=== PATIENT | female | born 1980 | race Caucasian/White ===

== ENCOUNTER 2022-03-18 15:55 | Emergency (ER) | payer MEDICAID, OTHER ==
[~2022-03-18] VITALS: Ht 165.1 cm; Wt 64.6 kg
[2022-03-18] MEDS ORDERED: NS IV 1000 ML 1,000 ML IV STA ×2 (16:41→18:44)
[2022-03-18] MEDS ORDERED: diphenhydrAMINE 50 MG/ML INJ (BENADRYL) IVP STA (16:41)
[2022-03-18] MEDS ORDERED: ONDANSETRON 4 MG/2 ML (SDV) Z0FRAN IVP STA ×2 (16:41→18:44)
--- NOTE | 2022-03-18 16:50 | Diagnostic Imaging Report ---
PROCEDURE: CT abdomen and pelvis without contrast. TECHNIQUE: Multiple contiguous axial images were obtained through the abdomen and pelvis without the use of intravenous contrast. Auto Exposure Controls were utilized during the CT exam to meet ALARA standards for radiation dose reduction. INDICATION: Left lower quadrant abdominal pain and left flank pain. COMPARISON: None. FINDINGS: Unenhanced images of liver and spleen reveal no focal abnormality. Surgical clips are seen in the gallbladder fossa. There is no evidence of biliary ductal dilatation. Internal biliary stent is in place. There is no evidence of pancreatic or adrenal gland abnormality identified. There is no evidence of renal calculus or hydronephrosis. No free fluid is seen within the abdomen or pelvis. There is mild aortoiliac atherosclerotic calcification. Unenhanced urinary bladder is unremarkable in appearance. IMPRESSION: No acute abnormality is identified. Internal biliary stent is in place without significant ductal dilatation. Dictated by: Dictated on workstation # [id number]
[2022-03-18] MEDS ORDERED: PROMETHAZINE INJ 25 MG/ML (PHENERGAN) AMP IVP STA (16:57)
[2022-03-18] MEDS ORDERED: fentaNYL INJ 100 MCG/2 ML AMP IM STA (16:57)
[2022-03-18] MEDS ORDERED: KETOROLAC 30 MG/ML VIAL IM STA (16:57)
[2022-03-18 17:31] LABS: BASOPHILS # (AUTO) 0.1 10^3/uL (0.0-0.1); BASOPHILS % (AUTO) 1 % (0-10); EOSINOPHILS # (AUTO) 0.1 10^3/uL (0.0-0.3); EOSINOPHILS % (AUTO) 1 % (0-10); HEMATOCRIT 35 % (35-52); HEMOGLOBIN 11.4 g/dL (11.5-16.0); LYMPHOCYTES # (AUTO) 1.4 10^3/uL (1.0-4.0); LYMPHOCYTES % (AUTO) 17 % (12-44); MEAN CORPUSCULAR HEMOGLOBIN 26 pg (25-34); MEAN CORPUSCULAR HGB CONC 33 g/dL (32-36); MEAN CORPUSCULAR VOLUME 79 fL (80-99); MEAN PLATELET VOLUME 11.2 fL (9.0-12.2); MONOCYTES # (AUTO) 0.5 10^3/uL (0.0-1.0); MONOCYTES % (AUTO) 7 % (0-12); NEUTROPHILS # (AUTO) 5.9 10^3/uL (1.8-7.8); NEUTROPHILS % (AUTO) 74 % (42-75); PLATELET COUNT 202 10^3/uL (130-400)
[2022-03-18 17:51] LABS: ALBUMIN 4.3 GM/DL (3.2-4.5); BILIRUBIN,TOTAL 0.4 MG/DL (0.1-1.0); CALCIUM 9.3 MG/DL (8.5-10.1); CREATININE SERUM 0.66 MG/DL (0.60-1.30); POTASSIUM 4.2 MMOL/L (3.6-5.0); TOTAL PROTEIN 6.9 GM/DL (6.4-8.2)
--- NOTE | 2022-03-18 18:35 | ED GI ---
General Chief Complaint: Abdominal/GI Problems Stated Complaint: VOMITTING,ABD AND BACK PAIN Nursing Triage Note: Patient presents to the ED from her PCPs office with c/o nausea, vomiting, and left lower back/abdominal pain. Patient reports that she just finished a course of antibiotics for a UTI. States her nausea, vomiting, and abdominal pain have been ongoing x 1 week with symptoms worsening today. Source of Information: Patient History of Present Illness Date Seen by Provider: March 18, 2022 Time Seen by Provider: 15:56 Initial Comments 41-year-old female presenting with complaints of being sick for over a week. She reports having left back and abdominal pain. She feels like this was worse today and she has had nausea, vomiting and increased pain. She just finished a course of Macrobid for a UTI. According to the doctor from the clinic, Dr. Danial BAH, her urine culture had shown her most recent UTI was sensitive to Macrobid. Patient is concerned that she still has a UTI and that it is in her kidney causing her to have symptoms. She does have a history of gastroparesis and severe diabetes issues. She has an insulin pump. She states she has had nausea and vomiting and not been able to keep anything down today. She had tried using Zofran ODT at home without success. She had gone to the clinic and they had performed a urinalysis which had reportedly not shown any leukocyte esterase or signs of infection on the dip but did have some ketones. There was no glucose. Timing/Duration: 1 Week Severity/Quality: Severe, Sharp Location: Flank (Left side into the left lower quadrant) Radiation: LLQ (Left flank into the left lower quadrant) Activities at Onset: None Modifying Factors: Worsens With Movement, Worsens With Palpation Associated Symptoms: Back Pain; No Chest Pain, No Diaphoresis, No Fever/Chills; Fatigue; No Heartburn; Nausea/Vomiting; No Rash, No Shortness of Air, No Swelling/Mass in Abdomen, No Syncope; Weakness Allergies and Home Medications Allergies Coded Allergies: Penicillins (Verified Allergy, Unknown, 03/18/22) azithromycin (Verified Allergy, Unknown, 03/18/22) cephalexin (Verified Allergy, Unknown, 03/18/22) meperidine (Verified Allergy, Unknown, 03/18/22) metoclopramide (Verified Allergy, Unknown, 03/18/22) Patient Home Medication List Home Medication List Reviewed: Yes Promethazine HCl (Promethazine Tablet) 25 Mg Tablet, 25 MG PO Q8H PRN for NAUSEA/VOMITING Prescribed by: JANEY SALAS on 03/18/222049 Review of Systems Review of Systems Constitutional: see HPI EENTM: No Symptoms Reported Respiratory: No Symptoms Reported Cardiovascular: No Symptoms Reported Gastrointestinal: See HPI Genitourinary: See HPI, Flank Pain Musculoskeletal: see HPI, back pain Skin: No rash Psychiatric/Neurological: Anxiety Endocrine: No Symptoms Reported Hematologic/Lymphatic: Denies Blood Clots, Denies Easy Bleeding, Denies Easy Bruising Past Cqonekm-Nbvhpt-Jimhsy Hx Patient Social History Tobacco Use?: Yes Tobacco type used: Cigarettes Smoking Status: Current Everyday Smoker Substance use?: Yes Substance type: Marijuana Alcohol Use?: No Pt feels they are or have been: No Immunizations Up To Date First/Initial COVID19 Vaccinat: Not currently vaccinated Past Medical History Surgery/Hospitalization HX: Hysterectomy; DM; Nerver repair left arm; Gastric stimulator; feeding tubes Physical Exam Vital Signs Vital Signs - First Documented 03/18/22 16:05 Temp 36.5 Pulse 89 Resp 20 B/P (MAP) 167/76 (106) Pulse Ox 98 O2 Delivery Room Air Capillary Refill : Less Than 3 Seconds Height/Weight/BMI Height: '" Weight: lbs. oz. kg; 23.00 BMI Method: General Appearance: severe distress (Patient is crying and tearful at times. Chronically ill-appearing) HEENT: PERRL/EOMI; No pharynx normal (Slightly dry mucous membranes) Neck: non-tender, full range of motion, supple, normal inspection Respiratory: chest non-tender, lungs clear, normal breath sounds, no respiratory distress, no accessory muscle use Cardiovascular: normal peripheral pulses, regular rate, rhythm Gastrointestinal: soft, no pulsatile mass, abnormal bowel sounds (Hypoactive); No distended; guarding; No rebound; tenderness (Diffuse tenderness to even mild palpation of her abdomen but worse in the left flank and left lower quadrant) Rectal: deferred Extremities: normal range of motion, normal capillary refill Back: CVA tenderness (L) Neurologic/Psychiatric: alert, oriented x 3 Skin: warm/dry Progress/Results/Core Measures Results/Orders Lab Results Laboratory Tests Test 03/18/22 17:06 03/18/22 18:39 03/18/22 19:50 Range/Units White Blood Count 8.0 4.3-11.0 10^3/uL Red Blood Count 4.43 3.80-5.11 10^6/uL Hemoglobin 11.4 L 11.5-16.0 g/dL Hematocrit 35 35-52 % Mean Corpuscular Volume 79 L 80-99 fL Mean Corpuscular Hemoglobin 26 25-34 pg Mean Corpuscular Hemoglobin Concent 33 32-36 g/dL Red Cell Distribution Width 17.2 H 10.0-14.5 % Platelet Count 202 130-400 10^3/uL Mean Platelet Volume 11.2 9.0-12.2 fL Immature Granulocyte % (Auto) 0 % Neutrophils (%) (Auto) 74 42-75 % Lymphocytes (%) (Auto) 17 12-44 % Monocytes (%) (Auto) 7 0-12 % Eosinophils (%) (Auto) 1 0-10 % Basophils (%) (Auto) 1 0-10 % Neutrophils # (Auto) 5.9 1.8-7.8 10^3/uL Lymphocytes # (Auto) 1.4 1.0-4.0 10^3/uL Monocytes # (Auto) 0.5 0.0-1.0 10^3/uL Eosinophils # (Auto) 0.1 0.0-0.3 10^3/uL Basophils # (Auto) 0.1 0.0-0.1 10^3/uL Immature Granulocyte # (Auto) 0.0 0.0-0.1 10^3/uL Sodium Level 136 135-145 MMOL/L Potassium Level 4.2 3.6-5.0 MMOL/L Chloride Level 97 L 98-107 MMOL/L Carbon Dioxide Level 22 21-32 MMOL/L Anion Gap 17 H 5-14 MMOL/L Blood Urea Nitrogen 15 7-18 MG/DL Creatinine 0.66 0.60-1.30 MG/DL Estimat Glomerular Filtration Rate 112 BUN/Creatinine Ratio 23 Glucose Level 249 H 70-105 MG/DL Calcium Level 9.3 8.5-10.1 MG/DL Corrected Calcium 9.1 8.5-10.1 MG/DL Total Bilirubin 0.4 0.1-1.0 MG/DL Aspartate Amino Transf (AST/SGOT) 14 5-34 U/L Alanine Aminotransferase (ALT/SGPT) 8 0-55 U/L Alkaline Phosphatase 102 40-136 U/L Total Protein 6.9 6.4-8.2 GM/DL Albumin 4.3 3.2-4.5 GM/DL Lipase 5 L 8-78 U/L Beta-Hydroxybutyrate (Chem panel) 1.89 H 0.00-0.27 MMOL/L Urine Color YELLOW Urine Clarity CLEAR Urine pH 6.0 5-9 Urine Specific [place] 1.020 1.016-1.022 Urine Protein NEGATIVE NEGATIVE Urine Glucose (UA) 2+ H NEGATIVE Urine Ketones 3+ H NEGATIVE Urine Nitrite NEGATIVE NEGATIVE Urine Bilirubin NEGATIVE NEGATIVE Urine Urobilinogen 0.2 < = 1.0 MG/DL Urine Leukocyte Esterase NEGATIVE NEGATIVE Urine RBC (Auto) NEGATIVE NEGATIVE Urine RBC 2-5 H /HPF Urine WBC 5-10 H /HPF Urine Squamous Epithelial Cells 10-25 H /HPF Urine Crystals NONE /LPF Urine Bacteria TRACE /HPF Urine Casts NONE /LPF Urine Mucus NEGATIVE /LPF Urine Culture Indicated NO Urine Opiates Screen NEGATIVE NEGATIVE Urine Oxycodone Screen NEGATIVE NEGATIVE Urine Methadone Screen NEGATIVE NEGATIVE Urine Propoxyphene Screen NEGATIVE NEGATIVE Urine Barbiturates Screen NEGATIVE NEGATIVE Ur Tricyclic Antidepressants Screen NEGATIVE NEGATIVE Urine Phencyclidine Screen NEGATIVE NEGATIVE Urine Amphetamines Screen NEGATIVE NEGATIVE Urine Methamphetamines Screen NEGATIVE NEGATIVE Urine Benzodiazepines Screen NEGATIVE NEGATIVE Urine Cocaine Screen NEGATIVE NEGATIVE Urine Cannabinoids Screen POSITIVE H NEGATIVE Blood Gas Puncture Site RIGHT WRIST Blood Gas Patient Temperature 36.5 Arterial Blood pH 7.42 7.37-7.43 Arterial Blood Partial Pressure CO2 36 35-45 MMHG Arterial Blood Partial Pressure O2 41 L 79-93 MMHG Arterial Blood HCO3 23 23-27 MMOL/L Arterial Blood Total CO2 24.5 21.0-31.0 MMOL/L Arterial Blood Oxygen Saturation 77 L 94-100 % Arterial Blood Base Excess -0.7 -2.5-2.5 MMOL/L Artem Test NEGATIVE Blood Gas Ventilator Setting NO Blood Gas Inspired Oxygen ROOM AIR My Orders Orders - JANEY SALAS MD Comprehensive Metabolic Panel (03/18/22 16:18) Lipase (03/18/22 16:18) Ua Culture If Indicated (03/18/22 16:18) Ed Iv/Invasive Line Start (03/18/22 16:18) Cbc With Automated Diff (03/18/22 16:18) Ct Abdomen/Pelvis Wo (03/18/22 16:18) Drug Screen Stat (Urine) (03/18/22 16:18) Ns Iv 1000 Ml (Sodium Chloride 0.9%) (03/18/22 16:41) Ondansetron Injection (Zofran Injectio (03/18/22 16:41) Diphenhydramine Injection (Benadryl Inje (03/18/22 16:41) Promethazine Injection (Phenergan Injec (03/18/22 16:57) Ketorolac Injection (Toradol Injection) (03/18/22 16:57) Fentanyl Inj (Sublimaze Injection) (03/18/22 16:57) Ns Iv 1000 Ml (Sodium Chloride 0.9%) (03/18/22 18:44) Fentanyl Inj (Sublimaze Injection) (03/18/22 18:44) Droperidol Inj (Ed Only) (Inapsine Inj ( (03/18/22 18:44) Lorazepam Injection (Ativan Injection) (03/18/22 18:44) Ondansetron Injection (Zofran Injectio (03/18/22 18:44) Beta Hydroxybutyrate (03/18/22 19:13) Arterial Blood Gas (03/18/22 19:33) Urine Culture (03/18/22 19:33) Beta Hydroxybutyrate (03/18/22 19:33) Ceftriaxone 1 Gm Pre-Mix (Rocephin 1 Gm (03/18/22 20:22) Vital Signs/I&O 03/18/22 03/18/22 03/18/22 16:05 17:27 22:18 Temp 36.5 36.5 Pulse 89 82 Resp 20 18 B/P (MAP) 167/76 (106) 121/61 Pulse Ox 98 100 O2 Delivery Room Air Room Air Blood Pressure Mean: 106 Progress Progress Note #1: Progress Note Obtain urinalysis as well as basic labs and CT scan of the abdomen and pelvis without contrast to evaluate for possible kidney stone, diverticulitis, colitis, pyelonephritis, abdominal mass. Give normal saline 1 L IV fluid bolus for hydr ation, Zofran 4 mg IV for nausea and vomiting, Benadryl 25 mg IV to help with nausea and vomiting and help her relax. In terms of pain we will try fentanyl 50 mcg and Toradol 30 mg. Since she is having difficulty obtaining an IV due to chronic illness and poor venous access will order the pain medicine as an IM injection. If they are able to obtain IV access that could be switched. She does state that Phenergan tends to help with her nausea and vomiting better than the Zofran but they have not been giving her about through the IV when she is gone to [facility] the last several times. Will order dose IM to try and help with her nausea and vomiting. Progress Note #2: Progress Note CT scan without contrast does not show any signs of kidney stone, obstruction, free air, blockage, pyelonephritis, cystitis, colitis, diverticulitis. No acute process to explain her symptoms on the CT. Labs show stable CBC without elevation of WBC count. Hgb is 11.4 for mild anemia. Chemistry shows elevated glucose to 249 with slight elevation of Anion Gap to 17. Normal CO2, renal function, LFTs, Lipase. She was able to have a 24 gauge IV established in the right big toe so fluids and medicine other than Phenergan were administered via IV. Phenergan was given IM. Awaiting UA Progress Note #3: Time: 18:41 Progress Note Patient was finally able to provide a urine specimen. She stated that her abdominal pain was starting to come back again. She has not had any vomiting here in the ED. Will try repeating medicine for pain and nausea while waiting on UA. Ordered second liter of normal saline IV fluid hydration. Repeat dose of fentanyl 50 mcg IV for pain, Zofran 4 mg IV for nausea, droperidol 2.5 mg IV for her gastroparesis and abdominal pain, Ativan 1 mg IV for gastroparesis and abdominal pain and nausea. Progress Note #4: Time: 19:11 Progress Note Urinalysis had trace bacteria with negative leukocyte Estrace and nitrites. She did have 3+ ketones and her specific gravity was 1.020. Had a beta hydroxybutyrate to her lab as well as an ABG to see what her pH was to check for acidosis and DKA. Updated patient and family about results and plan. Patient was tolerating ice chips and oral intake. Progress Note #5: Time: 20:16 Progress Note pH was 7.42 so patient was not acidotic. Specimen did appear to be venous rather than a true arterial blood gas. However the pH and acid-base balance should still be consistent. 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 In the meantime u pdated the patient and family that it did not appear that she had DKA since she is not acidotic. The ketones may just be present more from her not eating and drinking well recently. Continue with the IV fluid for hydration and patient does report despite blood urine not showing signs of infection that frequently she will have a culture showing infection. She reports requiring Rocephin shots to help clear up urine infection and flank pain previously. Will give a dose of Rocephin 1 g IV here to help treat for possible urine infection and ensure that her urine is sent for culture. Counseled patient that as long as she continues to tolerate oral intake and pain is relatively controlled we will anticipate discharge to home after this bag of fluids and the Rocephin infuses. She is relaxing and able to rest after the most recent dose of medications. Progress Note #6: Time: 22:00 Progress Note Fluids have finished infusing for the second liter of normal saline. The patient has tolerated oral fluids here in the ED without vomiting. Pain is better controlled with medications that she had been administered here in the ED. She has nausea medicine to take at home as well as Suboxone for chronic pain. A prescription for Phenergan was sent to [facility] in [place]. Counseled patient and family about management at home as well as follow-up and return precautions. Patient reports feeling much better and since she is tolerating oral intake as well as she had a dose of Rocephin IV she felt like she was going to be okay going home. 2318 after patient had left and been discharged the beta hydroxybutyrate level was noted to be elevated. However this was from her initial blood draw and before any fluids had infused. As she was not acidotic and had controlled nausea and vomiting prior to discharge as well as improved vital signs and no acidosis on a blood gas it was felt that she was not in DKA or if she had some mild DKA it had been treated while here in the ED. Diagnostic Imaging Diagonstic Imaging: CT Plain Films/CT/US/NM/MRI: abdomen, pelvis Comments [facility] [place], [place] NAME: MACI MORROW [facility] REC#: [id number] PT STATUS: REG ER : 1980 PHYSICIAN: JANEY SALAS MD ADMIT DATE: 03/18/22/ER FS Signed Date of Exam:03/18/22 CT ABDOMEN/PELVIS WO PROCEDURE: CT abdomen and pelvis without contrast. TECHNIQUE: Multiple contiguous axial images were obtained through the abdomen and pelvis without the use of intravenous contrast. Auto Exposure Controls were utilized during the CT exam to meet ALARA standards for radiation dose reduction. INDICATION: Left lower quadrant abdominal pain and left flank pain. COMPARISON: None. FINDINGS: Unenhanced images of liver and spleen reveal no focal abnormality. Surgical clips are seen in the gallbladder fossa. There is no evidence of biliary ductal dilatation. Internal biliary stent is in place. There is no evidence of pancreatic or adrenal gland abnormality identified. There is no evidence of renal calculus or hydronephrosis. No free fluid is seen within the abdomen or pelvis. There is mild aortoiliac atherosclerotic calcification. Unenhanced urinary bladder is unremarkable in appearance. IMPRESSION: No acute abnormality is identified. Internal biliary stent is in place without significant ductal dilatation. Dictated by: Dictated on workstation # [id number] Dict: 03/18/22 164 Trans: 03/18/221757 [facility] [id number] Interpreted by: JOHN WALLACE MD Electronically signed by: JOHN WALLACE MD 03/18/221757 Reviewed: Reviewed by Me Departure Impression Primary Impression: Left flank pain Additional Impressions: Nausea and vomiting in adult Dehydration Disposition: 01 HOME, SELF-CARE Condition: Improved Departure-Patient Inst. Decision time for Depature: 22:08 Referrals: NANCY BAH DO (PCP/Family) Primary Care Physician Patient Instructions: Flank Pain ED, Nausea and Vomiting, Adult ED, Abdominal Pain, Adult ED Add. Discharge Instructions: Keep sipping on fluids and try to stay well hydrated. Use the dissolving Zofran medicine as well as you could try the Promethazine (Phenergan) tablets for nausea to help keep your stomach settled so you could stay better hydrated. Continue with your Suboxone and home medicines to help with pain If your symptoms worsen or you still can not keep any fluids down consider returning to the Emergency Department here or in [place] to get rechecked. If you need admitted [place] could get you admitted to a room there or we could transfer you from here in an ambulance. If the culture of your urine comes back showing signs of infection that needs an antibiotic we will know in 48 to 72 hours and you would get a call so we could get you on another antibiotic All discharge instructions reviewed with patient and/or family. Voiced understanding. Scripts Promethazine HCl (Promethazine Tablet) 25 Mg Tablet 25 MG PO Q8H PRN for NAUSEA/VOMITING for 5 Days, #15 TAB 0 Refills Prov: JANEY SALAS MD 03/18/22 JANEY SALAS MD March 18, 2022 18:35
[2022-03-18] MEDS ORDERED: DROPERIDOL 5 MG/2 ML (INAPSINE) ED ONLY! IV STA (18:44)
[2022-03-18] MEDS ORDERED: LORazepam INJ 2 MG/ML (ATIVAN) VIAL IVP STA (18:44)
[2022-03-18] MEDS ORDERED: fentaNYL INJ 100 MCG/2 ML AMP IVP STA (18:44)
[2022-03-18 18:47] LABS: BILIRUBIN,URINE NEGATIVE (NEGATIVE); CLARITY,URINE CLEAR; COLOR,URINE YELLOW; GLUCOSE, URINE (UA) 2+ (NEGATIVE); KETONES,URINE 3+ (NEGATIVE); LEUKOCYTE ESTERASE ,URINE NEGATIVE (NEGATIVE); NITRITE,URINE NEGATIVE (NEGATIVE); PROTEIN,URINE NEGATIVE (NEGATIVE)
[2022-03-18 18:49] LABS: BACTERIA,URINE TRACE /HPF
[2022-03-18 18:56] LABS: AMPHETAMINE SCREEN, URINE NEGATIVE (NEGATIVE); BARBITURATE SCREEN URINE NEGATIVE (NEGATIVE); BENZODIAZEPINES SCREEN URINE NEGATIVE (NEGATIVE); CANNABINOID SCREEN, URINE POSITIVE (NEGATIVE); COCAINE SCREEN URINE NEGATIVE (NEGATIVE); METHADONE STAT NEGATIVE (NEGATIVE); OPIATE SCREEN URINE NEGATIVE (NEGATIVE); OXYCODONE STAT NEGATIVE (NEGATIVE); PROPOXYPHENE STAT NEGATIVE (NEGATIVE); TRICYCLIC ANTIDEPRESSANTS SCRE NEGATIVE (NEGATIVE)
[2022-03-18 19:57] LABS: ABG BASE EXCESS -0.7 MMOL/L (-2.5-2.5); ABG OXYGEN SATURATION 77 % (94-100); ABG PCO2 36 MMHG (35-45); ABG PH 7.42 (7.37-7.43); ABG PO2 41 MMHG (79-93); ABG TCO2 24.5 MMOL/L (21.0-31.0); ALLENS TEST NEGATIVE; INSPIRED O2 ROOM AIR; VENTILATOR NO
[2022-03-18 19:59] LABS: PATIENT TEMP 36.5
[2022-03-18] MEDS ORDERED: cefTRIAXone 1 GM PRE-MIX 50 ML IV STA (20:22)
[2022-03-18] MEDS ORDERED: PROM25TA14 PO (20:50)
[2022-03-18 22:18] VITALS: BP 121/61
== END 2022-03-18 22:18 | disposition home or self-care (01) ==
LOC: ER FS 15:56
DX: R11.2 Nausea with vomiting, unspecified (principal); E86.0 Dehydration; E11.65 Type 2 diabetes mellitus with hyperglycemia; D64.9 Anemia, unspecified; D72.829 Elevated white blood cell count, unspecified; Z90.710 Acquired absence of both cervix and uterus
CPT/HCPCS: 36415; 74176; 80053; 80306; 81000; 82010; 82805; 83690; 85025; 87088

== ENCOUNTER 2022-03-23 03:23 | Observation (INO) | payer MEDICARE, MEDICAID ==
[~2022-03-23] VITALS: Ht 165.1 cm; Wt 67.2 kg
[~2022-03-23 03:23] MED LIST: PROM25TA14 PO
[2022-03-23] MEDS ORDERED: DROPERIDOL 5 MG/2 ML (INAPSINE) ED ONLY! IV STA (03:41)
[2022-03-23] MEDS ORDERED: ONDANSETRON 4 MG/2 ML (SDV) Z0FRAN IVP STA (03:41)
[2022-03-23] MEDS ORDERED: inSUlin (REGULAR) HUMAN 1 UNIT/0.01 ML (CHARGE PER UNIT) SC STA (03:41)
[2022-03-23] MEDS ORDERED: LORazepam INJ 2 MG/ML (ATIVAN) VIAL IVP STA (03:41)
[2022-03-23] MEDS ORDERED: fentaNYL INJ 100 MCG/2 ML AMP IVP STA (03:41)
[2022-03-23] MEDS ORDERED: NS IV 1000 ML 1,000 ML IV STA ×2 (03:41→05:03)
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
[2022-03-23 04:17] LABS: BASOPHILS # (AUTO) 0.1 10^3/uL (0.0-0.1); BASOPHILS % (AUTO) 0 % (0-10); EOSINOPHILS % (AUTO) 0 % (0-10); HEMATOCRIT 37 % (35-52); HEMOGLOBIN 11.7 g/dL (11.5-16.0); LYMPHOCYTES # (AUTO) 0.8 10^3/uL (1.0-4.0); LYMPHOCYTES % (AUTO) 5 % (12-44); MEAN CORPUSCULAR HEMOGLOBIN 25 pg (25-34); MEAN CORPUSCULAR HGB CONC 32 g/dL (32-36); MEAN CORPUSCULAR VOLUME 80 fL (80-99); MEAN PLATELET VOLUME 12.4 fL (9.0-12.2); MONOCYTES # (AUTO) 0.5 10^3/uL (0.0-1.0); MONOCYTES % (AUTO) 3 % (0-12); NEUTROPHILS # (AUTO) 14.2 10^3/uL (1.8-7.8); NEUTROPHILS % (AUTO) 90 % (42-75); PLATELET COUNT 223 10^3/uL (130-400); WHITE BLOOD COUNT 15.7 10^3/uL (4.3-11.0)
[2022-03-23 04:39] LABS: BILIRUBIN,URINE NEGATIVE (NEGATIVE); CLARITY,URINE CLEAR; GLUCOSE, URINE (UA) 3+ (NEGATIVE); KETONES,URINE 2+ (NEGATIVE); LEUKOCYTE ESTERASE ,URINE NEGATIVE (NEGATIVE); NITRITE,URINE NEGATIVE (NEGATIVE); PROTEIN,URINE NEGATIVE (NEGATIVE)
[2022-03-23 04:48] LABS: BACTERIA,URINE NEGATIVE /HPF; COLOR,URINE PALE YELLOW; SQUAMOUS EPITHELIAL CELL,UR RARE /HPF; WBC,URINE RARE /HPF
[2022-03-23 04:50] LABS: CREATININE SERUM 0.72 MG/DL (0.60-1.30); POTASSIUM 4.6 MMOL/L (3.6-5.0)
[2022-03-23 04:51] LABS: BILIRUBIN,TOTAL 0.6 MG/DL (0.1-1.0); CALCIUM 9.7 MG/DL (8.5-10.1); MAGNESIUM 1.7 MG/DL (1.6-2.4)
[2022-03-23 04:52] LABS: ALBUMIN 4.5 GM/DL (3.2-4.5); TOTAL PROTEIN 7.3 GM/DL (6.4-8.2)
[2022-03-23 05:03] LABS: BAND NEUTROPHILS 2 %; BASOPHILS % (MANUAL) 1 %; EOSINOPHILS % (MANUAL) 1 %; LYMPHOCYTES % (MANUAL) 5 %; MONOCYTES % (MANUAL) 2 %; NEUTROPHILS % (MANUAL) 89 %
[2022-03-23 05:34] LABS: ABG OXYGEN SATURATION 98 % (94-100); ABG PCO2 33 MMHG (35-45); ABG PH 7.36 (7.37-7.43); ABG PO2 102 MMHG (79-93); ABG TCO2 19.6 MMOL/L (21.0-31.0)
[2022-03-23 05:35] LABS: ALLENS TEST OK; INSPIRED O2 ROOM AIR; PATIENT TEMP 36.5; VENTILATOR NO
[2022-03-23] MEDS ORDERED: NS IV 1000 ML 1,000 ML IV SCH ×2 (07:15)
[2022-03-23] MEDS: POTASSIUM CL 10MEQ/50ML IVPB 50 ML IV SCH ×9 (07:33→20:58)
[2022-03-23 07:55] LABS: POTASSIUM 3.8 MMOL/L (3.6-5.0)
[2022-03-23 08:00] LABS: CREATININE SERUM 1.08 MG/DL (0.60-1.30)
[2022-03-23] MEDS: D5 1/2 NS 1000 ML IV SOLUTION 1,000 ML IV SCH ×4 (08:50→20:35)
[2022-03-23] MEDS: 1/2 NS IV SOLUTION 1,000 ML IV SCH ×5 (08:50→23:15)
--- NOTE | 2022-03-23 09:22 | History & Physical-Hospitalist ---
History of Present Illness HPI/Chief Complaint Patient is a 41-year-old female with past medical history of insulin- dependent diabetes type 1 who presented to the emergency department due to hyperglycemia nausea vomiting. She states that she has had DKA before when her insulin pump is quit working and she believes it happened this time. She is quite sedate and had received fentanyl prior to transfer so only answers a few questions. She thinks that her blood sugars are normally in the 100s but also said that her A1c is normally 3 so I am unsure how accurate this information is. She was unable to tell me her pump settings. In the ER she was found to be in DKA and was admitted to the ICU for further management. Source: patient Exam Limitations: clinical condition Date Seen 03/23/22 Time Seen by a Provider: 08:30 Attending Physician David Prabhakar DO PCP Admitting Physician: Levon Bonner MD Attending Physician: Levon Bonner MD Referring Physician Date of Admission Mar 23, 2022 at 06:30 Home Medications & Allergies Home Medications Reviewed patient Home Medication Reconciliation performed by pharmacy medication reconciliations quick technician and/or nursing. Patients Allergies have been reviewed. Allergies Allergies Coded Allergies Penicillins (Verified Allergy, Unknown, 03/18/22) azithromycin (Verified Allergy, Unknown, 03/18/22) cephalexin (Verified Allergy, Unknown, 03/18/22) meperidine (Verified Allergy, Unknown, 03/18/22) metoclopramide (Verified Allergy, Unknown, 03/18/22) Past Efuthon-Bqdeir-Xjbkra Hx Patient Social History Tobacco Use?: Yes Tobacco type used: Cigarettes, Pipe Smoking Status: Current Everyday Smoker Use of E-Cig and/or Vaping dev: No Substance use?: Yes Substance type: Nicotine, Marijuana Alcohol Use?: No Pt feels they are or have been: No Immunizations Up To Date First/Initial COVID19 Vaccinat: none Current Status Communicates: Verbally Primary Language: Bengali Preferred Spoken Language: Bengali Implanted or Applied Medical D: Insulin pump Past Medical History Surgeries: Abdominal, Hysterectomy, Orthopedic High Cholesterol, Hypertension Diabetes, Insulin dep Family Medical History Reviewed Nursing Family Hx No Pertinent Family Hx Review of Systems ROS-Unable to Obtain: limited by sedation Constitutional: No chills, No fever; malaise EENTM: no symptoms reported Respiratory: No cough, No short of breath Cardiovascular: No chest pain, No palpitations Gastrointestinal: see HPI Physical Exam Physical Exam Vital Signs Vital Signs - First Documented 03/23/22 03:31 Temp 36.5 Pulse 106 Resp 24 B/P (MAP) 142/74 (96) Pulse Ox 99 O2 Delivery Room Air Capillary Refill : Less Than 3 Seconds Height, Weight, BMI Height: '" Weight: lbs. oz. kg; 159.05 BMI Method: General Appearance: No Apparent Distress, WD/WN HEENT: PERRL/EOMI, Moist Mucous Membranes Neck: Normal Inspection, Supple Respiratory: Lungs Clear, No Accessory Muscle Use, No Respiratory Distress Cardiovascular: Regular Rate, Rhythm, No Murmur Gastrointestinal: Normal Bowel Sounds, Non Tender, Soft Extremity: Normal Capillary Refill, No Calf Tenderness, No Pedal Edema Neurologic/Psychiatric: Alert, Oriented x3, Normal Mood/Affect Skin: Normal Color, Warm/Dry Results Results/Procedures Labs Laboratory Tests 03/23/22 18:40 03/24/22 00:30 03/24/22 05:15 03/24/22 12:13 03/24/22 18:15 03/25/22 03:50 Patient resulted labs reviewed. Assessment/Plan Admission Diagnosis DKA Admission Status: Inpatient Order (span 2 midnights) Reason for Inpatient Admission: see below Assessment and Plan DKA Admit to ICU for insulin gtt Unsure if she has equipment that is functional for insulin pump A1c pending Repeat BMP per protocol Hopeful to switch to bolus insulin this afternoon if she does well HTN HLD BP soft so hold antihypertensives Resume statin when med rec done DVT ppx: Lovenox Diagnosis/Problems Diagnosis/Problems (1) DKA, type 1 Status: Acute Qualifiers: Diabetes mellitus complication detail: without coma Qualified Codes: E10.10 - Type 1 diabetes mellitus with ketoacidosis without coma EMERSON GARCIA MD Mar 23, 2022 09:22
--- NOTE | 2022-03-23 12:12 | Tele-ICU Consult ---
History of Present Illness History of Present Illness Date Seen by Provider: Mar 23, 2022 Time Seen by Provider: 12:12 Date of Admission (Tele-ICU Physician , consultation) Available chart/ vitals / labs / Images reviewed H&P is from ER notes Patient's information available about PMH, Shx, Fhx allergy reviewed in EMR. ROS as per chart and RN report Now in ICU, hemodynamically stable Video assessment done using teleICU camera, rest of exam as per RN Discussed with RN. Hospital course: 03-23: Neg Sepsis 41 y/o F - DKA/Gastroparesis - Insulin Drip. A/P DKA ( with insulin-dependent diabetes type 1 - precipitated by insulin pump failure ? No suspicious for new infection_ *Insulin drip continue to monitor for resolution of acidosis, AG and electrolytes. Continue hydration. *Tx Gastroparesis UA unremarkable >off ABX , follow VTE Prophylaxis: ambulate , start tomorrow if not active Stress Ulcer Prophylaxis: na Plans in collaboration with bedside consultants and IM MDs. Discussed with RN to reach out if any questions or concerns A total of 20minutes of critical care time was devoted to this patient today, required to treat and/or prevent further deterioration of critical care condition ( as above ) . Allergies and Home Medications Allergies Coded Allergies: Penicillins (Verified Allergy, Unknown, 03/18/22) azithromycin (Verified Allergy, Unknown, 03/18/22) cephalexin (Verified Allergy, Unknown, 03/18/22) meperidine (Verified Allergy, Unknown, 03/18/22) metoclopramide (Verified Allergy, Unknown, 03/18/22) Home Medications Promethazine HCl 25 Mg Tablet, 25 MG PO Q8H PRN for NAUSEA/VOMITING Prescribed by: JANEY SALAS on 03/18/222049 Past Medical/Social/Family Hx Patient Social History Tobacco Use?: Yes Tobacco type used: Cigarettes, Pipe Smoking Status: Current Everyday Smoker Use of E-Cig and/or Vaping dev: No Substance use?: Yes Substance type: Nicotine, Marijuana Alcohol Use?: No Pt stated abuse/neglect: No Immunizations Up To Date Influenza Vaccine Up-to-Date: Yes; Up-to-Date First/Initial COVID19 Vaccinat: none Current Status Communicates: Verbally Primary Language: Serbian Preferred Spoken Language: Serbian Implanted or Applied Medical D: Insulin pump Review of Systems Constitutional: see HPI Focused Exam Height, Weight, BMI Height: '" Weight: lbs. oz. kg; 24.65 BMI Method: Exam Exam Patient acknowledged, consented, and participated in this virtual visit which was conducted using real time audio/video Vital Signs Date Time Temp Pulse Resp B/P (MAP) Pulse Ox O2 Delivery O2 Flow Rate FiO2 03/23/22 12:00 98 Room Air 03/23/22 11:00 80 7 95/53 99 Room Air 03/23/22 10:00 83 15 89/49 96 Room Air 03/23/22 09:00 73 24 88/48 96 Room Air 03/23/22 08:00 98 Room Air 03/23/22 08:00 36.1 03/23/22 08:00 73 13 90/46 97 Room Air 03/23/22 07:11 98 Room Air 03/23/22 07:00 83 03/23/22 07:00 87 14 97/51 95 Room Air 03/23/22 06:37 35.8 87 13 97/61 97 Room Air 03/23/22 05:45 91 15 97/46 97 Room Air 03/23/22 05:35 93 15 103/43 98 Room Air 03/23/22 05:15 87 14 75/33 97 Room Air 03/23/22 04:30 104 21 101/43 100 Room Air 03/23/22 04:22 99 Room Air 03/23/22 04:00 97 21 119/43 97 Room Air 03/23/22 03:31 36.5 106 24 142/74 (96) 99 Room Air Height & Weight Height: '" Weight: lbs. oz. kg; 24.65 BMI Method: General Appearance: No Apparent Distress, WD/WN HEENT: PERRL/EOMI, Moist Mucous Membranes Neck: Normal Inspection, Supple Respiratory: Lungs Clear, No Accessory Muscle Use, No Respiratory Distress Cardiovascular: Regular Rate, Rhythm, No Murmur Capillary Refill: Less Than 3 Seconds Extremity: Normal Capillary Refill, No Calf Tenderness, No Pedal Edema Neurologic/Psychiatric: Alert, Oriented x3, Normal Mood/Affect Skin: Normal Color, Warm/Dry Results Lab Laboratory Tests 03/23/22 03:41 03/23/22 07:28 03/23/22 11:40 Assessment/Plan Assessment/Plan ` YSABEL FABIAN MD Mar 23, 2022 12:12
[2022-03-23 12:23] LABS: POTASSIUM 3.9 MMOL/L (3.6-5.0)
[2022-03-23 12:24] LABS: CALCIUM 8.4 MG/DL (8.5-10.1)
[2022-03-23 12:28] LABS: CREATININE SERUM 0.92 MG/DL (0.60-1.30)
[2022-03-23] MEDS ORDERED: HYDROcodone/APAP 5 MG/325 MG (LORTAB) TAB ONE (13:52)
[2022-03-23] MEDS: HYDROcodone/APAP 5 MG/325 MG (LORTAB) TAB PO PRN ×2 (13:54→23:20)
[2022-03-23 19:09] LABS: CALCIUM 8.1 MG/DL (8.5-10.1)
[2022-03-23 19:14] LABS: CREATININE SERUM 0.8 MG/DL (0.60-1.30)
[2022-03-23] MEDS ORDERED: ONDANSETRON 4 MG/2 ML (SDV) Z0FRAN IVP PRN (19:15)
[2022-03-23] MEDS ORDERED: ONDANSETRON 4 MG/2 ML (SDV) Z0FRAN ONE (19:16)
[2022-03-23] MEDS ORDERED: PROMETHAZINE INJ 25 MG/ML (PHENERGAN) AMP ONE (20:57)
[2022-03-23] MEDS: PROMETHAZINE INJ 25 MG/ML (PHENERGAN) AMP IVP PRN (20:58)
[2022-03-24] MEDS: D5 1/2 NS 1000 ML IV SOLUTION 1,000 ML IV SCH ×4 (00:32→22:44)
[2022-03-24 02:22] LABS: CALCIUM 7.7 MG/DL (8.5-10.1); CREATININE SERUM 0.77 MG/DL (0.60-1.30); POTASSIUM 3.9 MMOL/L (3.6-5.0)
[2022-03-24] MEDS: POTASSIUM CL 10MEQ/50ML IVPB 50 ML IV SCH ×7 (03:37→23:30)
[2022-03-24] MEDS: 1/2 NS IV SOLUTION 1,000 ML IV SCH ×9 (04:11→22:55)
[2022-03-24 05:25] LABS: BASOPHILS % (AUTO) 1 % (0-10); EOSINOPHILS # (AUTO) 0.2 10^3/uL (0.0-0.3); EOSINOPHILS % (AUTO) 3 % (0-10); HEMATOCRIT 29 % (35-52); HEMOGLOBIN 9.2 g/dL (11.5-16.0); LYMPHOCYTES # (AUTO) 2.9 10^3/uL (1.0-4.0); LYMPHOCYTES % (AUTO) 34 % (12-44); MEAN CORPUSCULAR HEMOGLOBIN 26 pg (25-34); MEAN CORPUSCULAR HGB CONC 32 g/dL (32-36); MEAN CORPUSCULAR VOLUME 80 fL (80-99); MEAN PLATELET VOLUME 10.4 fL (9.0-12.2); MONOCYTES # (AUTO) 0.4 10^3/uL (0.0-1.0); MONOCYTES % (AUTO) 5 % (0-12); NEUTROPHILS # (AUTO) 4.8 10^3/uL (1.8-7.8); NEUTROPHILS % (AUTO) 58 % (42-75); PLATELET COUNT 165 10^3/uL (130-400); WHITE BLOOD COUNT 8.4 10^3/uL (4.3-11.0)
[2022-03-24 05:51] LABS: POTASSIUM 3.9 MMOL/L (3.6-5.0)
[2022-03-24 05:52] LABS: CALCIUM 7.6 MG/DL (8.5-10.1)
[2022-03-24 05:53] LABS: TOTAL PROTEIN 4.8 GM/DL (6.4-8.2)
[2022-03-24 05:55] LABS: BILIRUBIN,TOTAL 0.3 MG/DL (0.1-1.0)
[2022-03-24 05:57] LABS: CREATININE SERUM 0.74 MG/DL (0.60-1.30); PHOSPHORUS 2.2 MG/DL (2.3-4.7)
[2022-03-24 06:00] LABS: MAGNESIUM 1.7 MG/DL (1.6-2.4)
--- NOTE | 2022-03-24 08:11 | Discharge Inst-Simple/Standard ---
Discharge Inst-Standard Patient Instructions/Follow Up Plan of Care/Instructions/FU: Please continue to take your medications as written. Please follow up with your primary care doctor to follow up this hospital stay. Activity as Tolerated: Yes Discharge Diet: ADA Diet Return to The Hospital For: Chest pain, elevated blood sugars, abdominal pain, nausea, vomiting, shortness of breath, fever, weakness, if you feel you are getting worse. EMERSON GARCIA MD Mar 24, 2022 08:11
--- NOTE | 2022-03-24 08:13 | Discharge Summary ---
Diagnosis/Chief Complaint Date of Admission Mar 23, 2022 at 06:30 Date of Discharge Discharge Date: Mar 24, 2022 Admission Diagnosis DKA Primary Care David Prabhakar DO Discharge Diagnosis (1) DKA, type 1 Status: Acute Discharge Summary Discharge Physical Exam Allergies: Coded Allergies: Penicillins (Verified Allergy, Unknown, 03/18/22) azithromycin (Verified Allergy, Unknown, 03/18/22) cephalexin (Verified Allergy, Unknown, 03/18/22) meperidine (Verified Allergy, Unknown, 03/18/22) metoclopramide (Verified Allergy, Unknown, 03/18/22) Vitals & I&Os Vital Signs Date Time Temp Pulse Resp B/P (MAP) Pulse Ox O2 Delivery O2 Flow Rate FiO2 03/24/22 15:25 37.1 03/24/22 15:00 100 16 95/47 96 Room Air Hospital Course Labs (last 24 hrs) Laboratory Tests 03/23/22 15:57: Glucometer 109 03/23/22 16:21: Glucometer 106 03/23/22 17:19: Glucometer 124H 03/23/22 18:15: Glucometer 108 03/23/22 18:40: Sodium Level 135, Potassium Level 4.0, Chloride Level 104, Carbon Dioxide Level 19L, Anion Gap 12, Blood Urea Nitrogen 17, Creatinine 0.80, Estimat Glomerular Filtration Rate 94, BUN/Creatinine Ratio 21, Glucose Level 116H, Calcium Level 8.1L 03/23/22 19:22: Glucometer 119H 03/23/22 20:18: Glucometer 121H 03/23/22 21:07: Glucometer 130H 03/23/22 22:19: Glucometer 101 03/23/22 23:30: Glucometer 124H 03/24/22 00:30: Glucometer 150H, Sodium Level 136, Potassium Level 3.9, Chloride Level 107, Carbon Dioxide Level 17L, Anion Gap 12, Blood Urea Nitrogen 15, Creatinine 0.77, Estimat Glomerular Filtration Rate 98, BUN/Creatinine Ratio 19, Glucose Level 145H, Calcium Level 7.7L 03/24/22 02:22: Glucometer 147H 03/24/22 03:32: Glucometer 138H 03/24/22 04:20: Glucometer 106 03/24/22 05:15: Glucometer 128H, White Blood Count 8.4, Red Blood Count 3.58L, Hemoglobin 9.2#L, Hematocrit 29L, Mean Corpuscular Volume 80, Mean Corpuscular Hemoglobin 26, Mean Corpuscular Hemoglobin Concent 32, Red Cell Distribution Width 17.2H, Platelet Count 165, Mean Platelet Volume 10.4, Immature Granulocyte % (Auto) 0, Neutrophils (%) (Auto) 58, Lymphocytes (%) (Auto) 34, Monocytes (%) (Auto) 5, E osinophils (%) (Auto) 3, Basophils (%) (Auto) 1, Neutrophils # (Auto) 4.8, Lymphocytes # (Auto) 2.9, Monocytes # (Auto) 0.4, Eosinophils # (Auto) 0.2, Basophils # (Auto) 0.0, Immature Granulocyte # (Auto) 0.0, Sodium Level 136, Potassium Level 3.9, Chloride Level 110H, Carbon Dioxide Level 17L, Anion Gap 9, Blood Urea Nitrogen 12, Creatinine 0.74, Estimat Glomerular Filtration Rate 103, BUN/Creatinine Ratio 16, Glucose Level 117H, Calcium Level 7.6L, Corrected Calcium 8.4L, Phosphorus Level 2.2L, Magnesium Level 1.7, Total Bilirubin 0.3, Aspartate Amino Transf (AST/SGOT) 18, Alanine Aminotransferase (ALT/SGPT) 16, Alkaline Phosphatase 69, Total Protein 4.8L, Albumin 3.0L, Beta-Hydroxybutyrate (Chem panel) 0.06 03/24/22 06:21: Glucometer 181H 03/24/22 07:16: Glucometer 197H 03/24/22 07:52: Glucometer 199H 03/24/22 11:50: Glucometer 467*H 03/24/22 12:13: Sodium Level 135, Potassium Level 4.7, Chloride Level 103, Carbon Dioxide Level 15L, Anion Gap 17H, Blood Urea Nitrogen 12, Creatinine 1.05, Estimat Glomerular Filtration Rate 68, BUN/Creatinine Ratio 11, Glucose Level 546*H, Calcium Level 8.6 03/24/22 14:50: Glucometer 501*H Microbiology 03/23/22 MRSA Screen - Final, Complete MRSA not isolated Patient resulted labs reviewed. Pending Labs Laboratory Tests 03/24/22 07:52: Glucometer 199 03/24/22 11:50: Glucometer 467 03/24/22 12:13: Sodium Level 135, Potassium Level 4.7, Chloride Level 103, Carbon Dioxide Level 15, Anion Gap 17, Blood Urea Nitrogen 12, Creatinine 1.05, Estimat Glomerular Filtration Rate 68, BUN/Creatinine Ratio 11, Glucose Level 546, Calcium Level 8.6 03/24/22 14:50: Glucometer 501 Discharge Home Medications: Active Scripts Active Reported Gabapentin 600 Mg Tablet 600 Mg PO BID Miralax (Polyethylene Glycol 3350) 17 Gram Powd.pack 17 Gm PO BID PRN Novolog (Insulin Aspart) 100 Unit/Ml Susp 3-7 Units SC TIDWM SLIDING SCALE Ibuprofen 200 Mg Tablet 400 Mg PO Q8H PRN TAKES 2 (200MG) TAB Tylenol Extra Strength (Acetaminophen) 500 Mg Tablet 1,000 Mg PO Q8H PRN TAKES 2 (500MG) TAB Pantoprazole Sodium 40 Mg Tablet.dr 40 Mg PO DAILY Estradiol Tablet (Estradiol) 1 Mg Tablet 1 Mg PO DAILY Baqsimi (Glucagon) 3 Mg/Actuation [place] 3 Mg SC UD ONCE MONTHLY ON THE FIRST MONDAY OF EACH MONTH Atorvastatin Calcium 20 Mg Tablet 20 Mg PO DAILY Buprenorphine-Nalox 8-2Mg Film (Buprenorphine HCl/Naloxone HCl) 8 Mg-2 Mg Film 1 Each PO BID Ondansetron Odt (Ondansetron) 4 Mg Tab.rapdis 4 Mg PO TID PRN Promethazine Tablet (Promethazine HCl) 25 Mg Tablet 25 Mg PO TID PRN Instructions to patient/family Please see electronic discharge instructions given to patient. Problem Qualifiers (1) DKA, type 1: Diabetes mellitus complication detail: without coma Qualified Codes: E10.10 - Type 1 diabetes mellitus with ketoacidosis without coma EMERSON GARCIA MD Mar 24, 2022 08:13
[2022-03-24] MEDS ORDERED: PATIENT MAY USE OWN MED,SINGLE MED PO SCH (08:15)
[2022-03-24] MEDS: MAGNESIUM 1 GM/100 ML IVPB 100 ML IV SCH ×2 (08:17→09:57)
[2022-03-24] MEDS: PROMETHAZINE INJ 25 MG/ML (PHENERGAN) AMP IVP PRN ×2 (08:17→17:58)
[2022-03-24] MEDS ORDERED: PROM25TA14 PO (09:48)
[2022-03-24] MEDS ORDERED: ESTR1TAB24 PO (09:48)
[2022-03-24] MEDS ORDERED: PANT40TA52 PO (09:48)
[2022-03-24] MEDS ORDERED: ONDA4TAB11 PO (09:48)
[2022-03-24] MEDS ORDERED: BUPR1FIL19 PO (09:48)
[2022-03-24] MEDS ORDERED: ATOR20TA66 PO (09:48)
[2022-03-24] MEDS ORDERED: GLUC3SPR SC (09:48)
[2022-03-24] MEDS ORDERED: ACET-2267 PO (09:51)
[2022-03-24] MEDS ORDERED: IBUP-2473 PO (09:52)
[2022-03-24] MEDS ORDERED: INSU100V16 SC (09:57)
[2022-03-24] MEDS: ONDANSETRON 4 MG/2 ML (SDV) Z0FRAN IVP PRN ×2 (10:00→21:19)
[2022-03-24] MEDS ORDERED: POLY17PO6 PO (10:02)
[2022-03-24] MEDS ORDERED: GBPN600T PO (10:08)
[2022-03-24] MEDS ORDERED: KETOROLAC 15 MG/ML VIAL IVP ONE (10:15)
[2022-03-24] MEDS ORDERED: METOCLOPRAMIDE INJ 10 MG/2 ML (REGLAN) IVP PRN (11:15)
--- NOTE | 2022-03-24 11:20 | Tele-ICU Progress Note ---
Subjective Date Seen by a Provider: Mar 24, 2022 Time Seen by a Provider: 11:20 Subjective/Events-last exam (Tele-ICU Physician , Progress Note ) Available chart/ vitals / labs / Images reviewed Video assessment done using teleICU camera, rest of exam as per RN Discussed with RN , EXAM PER RN Events overnight : Afebrile FiO2 - ra I/O = pos Drips: Pressors: , hemodynamically stable Hospital course: 03-23: Neg Sepsis 41 y/o F - DKA/Gastroparesis - Insulin Drip. A/P DKA ( with insulin-dependent diabetes type 1 - precipitated by insulin pump failure ? No suspicious for new infection OFF Insulin drip continue to monitor on patient s insulin pump UA unremarkable >off ABX , follow VTE Prophylaxis: ambulate , start tomorrow if not active Stress Ulcer Prophylaxis: na Plans in collaboration with bedside consultants and IM MDs. Discussed with RN to reach out if any questions or concerns A total of 10 minutes of critical care time was devoted to this patient today, required to treat and/or prevent further deterioration of critical care condition ( as above ) . Sepsis Event Evaluation Height, Weight, BMI Height: '" Weight: lbs. oz. kg; 24.65 BMI Method: Exam Exam Patient acknowledged, consented, and participated in this virtual visit which was conducted using real time audio/video Vital Signs Date Time Temp Pulse Resp B/P (MAP) Pulse Ox O2 Delivery O2 Flow Rate FiO2 03/24/22 11:00 120 23 132/54 99 Room Air 03/24/22 10:00 122 19 147/82 98 Room Air 03/24/22 09:00 129 23 142/81 99 Room Air 03/24/22 08:00 36.6 03/24/22 08:00 71 22 116/81 100 Room Air 03/24/22 07:00 59 03/24/22 07:00 58 13 98 Room Air 03/24/22 06:00 64 113/69 97 Room Air 03/24/22 05:00 61 15 101/60 96 Room Air 03/24/22 04:00 98 Room Air 03/24/22 04:00 71 107/63 99 Room Air 03/24/22 03:00 61 115/70 97 Room Air 03/24/22 02:00 61 97/53 97 Room Air 03/24/22 01:00 70 111/69 100 Room Air 03/24/22 01:00 70 03/24/22 00:00 74 122/76 100 Room Air 03/24/22 00:00 98 Room Air 03/23/22 23:00 70 132/80 100 Room Air 03/23/22 22:31 37.0 03/23/22 22:00 71 86/67 100 Room Air 03/23/22 21:00 67 100/60 100 Room Air 03/23/22 20:00 98 Room Air 03/23/22 20:00 67 8 82/58 100 Room Air 03/23/22 19:44 36.7 03/23/22 19:00 77 14 88/58 100 Room Air 03/23/22 19:00 77 03/23/22 18:00 69 8 82/58 100 Room Air 03/23/22 17:00 67 17 130/63 100 Room Air 03/23/22 16:00 98 Room Air 03/23/22 16:00 67 16 138/77 99 Room Air 03/23/22 16:00 36.0 03/23/22 15:00 71 9 99 Room Air 03/23/22 14:00 70 10 101/58 100 Room Air 03/23/22 13:00 85 03/23/22 13:00 67 11 97/55 98 Room Air 03/23/22 12:00 98 Room Air 03/23/22 12:00 36.2 03/23/22 12:00 73 23 96 Room Air I & O 03/24/22 07:00 Intake Total 3590 ml Balance 3590 ml Height & Weight Height: '" Weight: lbs. oz. kg; 24.65 BMI Method: General Appearance: No Apparent Distress, WD/WN HEENT: PERRL/EOMI, Moist Mucous Membranes Neck: Normal Inspection, Supple Respiratory: Lungs Clear, No Accessory Muscle Use, No Respiratory Distress Cardiovascular: Regular Rate, Rhythm, No Murmur Capillary Refill: Less Than 3 Seconds Extremity: Normal Capillary Refill, No Calf Tenderness, No Pedal Edema Neurologic/Psychiatric: Alert, Oriented x3, Normal Mood/Affect Skin: Normal Color, Warm/Dry Results Lab Laboratory Tests 03/23/22 03:41 03/23/22 07:28 03/23/22 11:40 03/23/22 18:40 03/24/22 00:30 03/24/22 05:15 Assessment/Plan Assessment/Plan ` YSABEL FABIAN MD Mar 24, 2022 11:20
[2022-03-24] MEDS: fentaNYL INJ 100 MCG/2 ML AMP IVP PRN ×4 (11:46→22:56)
[2022-03-24] MEDS: PROCHLORPERAZINE 10 MG/2ML INJ (COMPAZINE) IV PRN ×2 (12:12→21:54)
[2022-03-24 12:33] LABS: POTASSIUM 4.7 MMOL/L (3.6-5.0)
[2022-03-24 12:34] LABS: CALCIUM 8.6 MG/DL (8.5-10.1)
[2022-03-24 12:38] LABS: CREATININE SERUM 1.05 MG/DL (0.60-1.30)
[2022-03-24] MEDS ORDERED: inSUlin (REGULAR) HUMAN 1 UNIT/0.01 ML (CHARGE PER UNIT) ONE (13:23)
[2022-03-24] MEDS ORDERED: D5 1/2 NS 1000 ML IV SOLUTION 1,000 ML IV SCH (13:30)
[2022-03-24] MEDS ORDERED: inSUlin (REGULAR) HUMAN 1 UNIT/0.01 ML (CHARGE PER UNIT) SC ONE (13:30)
[2022-03-24] MEDS ORDERED: POTASSIUM CL 10MEQ/50ML IVPB 50 ML IV SCH (13:30)
--- NOTE | 2022-03-24 15:47 | Progress Note - Hospitalist ---
Subjective HPI/CC On Admission Date Seen by Provider: Mar 24, 2022 Time Seen by Provider: 15:42 Patient is a 41-year-old female with past medical history of insulin- dependent diabetes type 1 who presented to the emergency department due to hyperglycemia nausea vomiting. She states that she has had DKA before when her insulin pump is quit working and she believes it happened this time. She is quite sedate and had received fentanyl prior to transfer so only answers a few questions. She thinks that her blood sugars are normally in the 100s but also said that her A1c is normally 3 so I am unsure how accurate this information is. She was unable to tell me her pump settings. In the ER she was found to be in DKA and was admitted to the ICU for further management. Subjective/Events-last exam Pt reports doing well this morning. Hoping to eat and be able to DC. After eating increased abd pain. ALso increasing blood sugar after transition back to insulin pump. Objective Exam Vital Signs Vital Signs Date Time Temp Pulse Resp B/P (MAP) Pulse Ox O2 Delivery O2 Flow Rate FiO2 03/24/22 15:25 37.1 03/24/22 15:00 100 16 95/47 96 Room Air Capillary Refill : Less Than 3 Seconds General Appearance: No Apparent Distress, WD/WN Respiratory: Lungs Clear, No Respiratory Distress Cardiovascular: Regular Rate, Rhythm, No Murmur Neurologic/Psychiatric: Alert, Oriented x3 Results/Procedures Lab Laboratory Tests 03/23/22 18:40 03/24/22 00:30 03/24/22 05:15 03/24/22 12:13 Patient resulted labs reviewed. Assessment/Plan Assessment and Plan Assess & Plan/Chief Complaint DKA Abd pain Nausea Attempted to transition off insulin gtt but quickly went back to DKA Unsure if pump is actually working A1c 6.8 Diabetes education HTN HLD BP soft so hold antihypertensives Resume statin when med rec done Social situation Received call regarding her ED01 benefits support services rep consulted DVT ppx: Lovenox Diagnosis/Problems Diagnosis/Problems (1) DKA, type 1 Status: Acute Qualifiers: Diabetes mellitus complication detail: without coma Qualified Codes: E10.10 - Type 1 diabetes mellitus with ketoacidosis without coma EMERSON GARCIA MD Mar 24, 2022 15:47
[2022-03-24] MEDS ORDERED: ACETAMINOPHEN 500 MG TAB (TYLENOL) PO PRN (16:00)
[2022-03-24] MEDS ORDERED: IBUPROFEN TABLET 200 MG TAB PO PRN (16:00)
[2022-03-24] MEDS ORDERED: polyethylene glycoL POWDER 17 GM (MIRALAX) PACK PO PRN (16:00)
[2022-03-24 19:16] LABS: CALCIUM 8.4 MG/DL (8.5-10.1)
[2022-03-24 20:10] LABS: POTASSIUM 5.2 MMOL/L (3.6-5.0)
[2022-03-24 20:20] LABS: CREATININE SERUM 1.06 MG/DL (0.60-1.30)
[2022-03-24] MEDS: GABAPENTIN 600 MG (NEURONTIN) TAB PO SCH (21:00)
[2022-03-24] MEDS ORDERED: [UNRECOGNIZED DRUG - OTHER] PO SCH (21:00)
[2022-03-24] MEDS ORDERED: NALOXONE HCL PO SCH (21:00)
[2022-03-24] MEDS ORDERED: BUPRENORPHINE HCL PO SCH (21:00)
[2022-03-25] MEDS: PROMETHAZINE INJ 25 MG/ML (PHENERGAN) AMP IVP PRN ×3 (00:10→15:16)
[2022-03-25] MEDS: fentaNYL INJ 100 MCG/2 ML AMP IVP PRN ×8 (00:10→15:17)
[2022-03-25] MEDS: POTASSIUM CL 10MEQ/50ML IVPB 50 ML IV SCH ×3 (01:26→06:31)
[2022-03-25] MEDS: D5 1/2 NS 1000 ML IV SOLUTION 1,000 ML IV SCH ×2 (02:48→06:31)
[2022-03-25] MEDS: 1/2 NS IV SOLUTION 1,000 ML IV SCH ×9 (02:49→15:15)
[2022-03-25 04:06] LABS: BASOPHILS % (AUTO) 0 % (0-10); EOSINOPHILS # (AUTO) 0.1 10^3/uL (0.0-0.3); EOSINOPHILS % (AUTO) 1 % (0-10); HEMATOCRIT 30 % (35-52); HEMOGLOBIN 9.7 g/dL (11.5-16.0); LYMPHOCYTES # (AUTO) 2.1 10^3/uL (1.0-4.0); LYMPHOCYTES % (AUTO) 17 % (12-44); MEAN CORPUSCULAR HEMOGLOBIN 26 pg (25-34); MEAN CORPUSCULAR HGB CONC 32 g/dL (32-36); MEAN CORPUSCULAR VOLUME 80 fL (80-99); MEAN PLATELET VOLUME 9.9 fL (9.0-12.2); MONOCYTES # (AUTO) 0.8 10^3/uL (0.0-1.0); MONOCYTES % (AUTO) 6 % (0-12); NEUTROPHILS # (AUTO) 9.5 10^3/uL (1.8-7.8); NEUTROPHILS % (AUTO) 76 % (42-75); PLATELET COUNT 196 10^3/uL (130-400); WHITE BLOOD COUNT 12.5 10^3/uL (4.3-11.0)
[2022-03-25 04:17] LABS: ALBUMIN 3.4 GM/DL (3.2-4.5); POTASSIUM 4.4 MMOL/L (3.6-5.0)
[2022-03-25 04:18] LABS: CALCIUM 8.2 MG/DL (8.5-10.1)
[2022-03-25 04:19] LABS: TOTAL PROTEIN 5.3 GM/DL (6.4-8.2)
[2022-03-25 04:21] LABS: BILIRUBIN,TOTAL 0.3 MG/DL (0.1-1.0)
[2022-03-25 04:23] LABS: CREATININE SERUM 0.84 MG/DL (0.60-1.30); PHOSPHORUS 1.9 MG/DL (2.3-4.7)
[2022-03-25 04:26] LABS: MAGNESIUM 2.1 MG/DL (1.6-2.4)
[2022-03-25] MEDS: PROCHLORPERAZINE 10 MG/2ML INJ (COMPAZINE) IV PRN ×2 (05:15→09:45)
[2022-03-25] MEDS ORDERED: KCL 20 MEQ TAB (K-DUR) PO SCH (06:00)
[2022-03-25] MEDS ORDERED: POTASSIUM CL 10MEQ/50ML IVPB 50 ML IV SCH (06:00)
[2022-03-25] MEDS ORDERED: MAGNESIUM 1 GM/100 ML IVPB 100 ML IV SCH (06:00)
--- NOTE | 2022-03-25 07:38 | Diagnostic Imaging Report ---
INDICATION: Abdominal pain. COMPARISON: CT dated 03/18/2022 TECHNIQUE: 2 radiographs of abdomen dated 03/25/2022. FINDINGS: The visualized lung bases are clear. Visualized stent within the right upper abdomen is again identified, appearing relatively similar to the prior examination. Surgical clips are also seen within the right upper abdomen and left upper abdomen. Phleboliths within the lower pelvis. Nonobstructive bowel gas pattern. No free air. Scattered osseous degenerative changes without acute osseous abnormality. IMPRESSION: Stent overlying the right abdomen is again identified relatively similar configuration to the prior exam. Nonspecific bowel gas pattern without definite bowel obstruction or free air. Dictated by: Dictated on workstation # [id number]
[2022-03-25] MEDS ORDERED: ESTRADIOL 1 MG TAB (ESTRACE) PO SCH (09:00)
[2022-03-25] MEDS ORDERED: PANTOPRAZOLE 40 MG (PROTONIX) TAB PO SCH (09:00)
[2022-03-25] MEDS: METHYLNALTREXONE 12 MG/0.6 ML (RELISTOR) VIAL SQ SCH ×2 (09:44→10:00)
[2022-03-25] MEDS: ONDANSETRON 4 MG/2 ML (SDV) Z0FRAN IVP PRN (09:45)
[2022-03-25] MEDS: GABAPENTIN 600 MG (NEURONTIN) TAB PO SCH (09:45)
[2022-03-25 13:15] LABS: CALCIUM 8.8 MG/DL (8.5-10.1); CREATININE SERUM 0.81 MG/DL (0.60-1.30); POTASSIUM 4.4 MMOL/L (3.6-5.0)
--- NOTE | 2022-03-25 13:51 | Discharge Summary ---
Diagnosis/Chief Complaint Date of Admission Mar 23, 2022 at 06:30 Date of Discharge Discharge Date: Mar 24, 2022 Admission Diagnosis DKA Primary Care David Prabhakar DO Discharge Diagnosis (1) DKA, type 1 Status: Acute Discharge Summary Discharge Physical Exam Allergies: Coded Allergies: Penicillins (Verified Allergy, Unknown, 03/18/22) azithromycin (Verified Allergy, Unknown, 03/18/22) cephalexin (Verified Allergy, Unknown, 03/18/22) meperidine (Verified Allergy, Unknown, 03/18/22) metoclopramide (Verified Allergy, Unknown, 03/18/22) Vitals & I&Os Vital Signs Date Time Temp Pulse Resp B/P (MAP) Pulse Ox O2 Delivery O2 Flow Rate FiO2 03/25/22 14:00 89 22 168/89 100 Room Air 03/25/22 11:56 37.2 General Appearance: No Apparent Distress, WD/WN Respiratory: Lungs Clear, No Respiratory Distress Cardiovascular: Regular Rate, Rhythm, No Murmur Gastrointestinal: Normal Bowel Sounds, Soft Neurologic/Psychiatric: Alert, Oriented x3 Hospital Course Patient was admitted to the hospital secondary to DKA. She has a known type I diabetic who normally uses an insulin pump but her catheter got clogged and she presented with elevated blood sugars and acidotic. She was admitted to the ICU for insulin drip. They attempted to switch her back to her insulin pump but she [facility] and she was placed back on the insulin pump. Upon further inspection of her insulin pump equipment her catheter was kinked and not delivering insulin. Her entire equipment for her pump was exchanged and she was transitioned back to her pump with a follow-up BMP and did well. She was discharged home in stable and improved condition to follow-up with her primary care doctor. Labs (last 24 hrs) Laboratory Tests 03/24/22 15:54: Glucometer 402*H 03/24/22 16:48: Glucometer 403*H 03/24/22 17:01: Glucometer 340H 03/24/22 17:57: Glucometer 381H 03/24/22 18:15: Sodium Level 132L, Potassium Level 5.2H, Chloride Level 105, Carbon Dioxide Level 18L, Anion Gap 9, Blood Urea Nitrogen 13, Creatinine 1.06, Estimat Glomerular Filtration Rate 67, BUN/Creatinine Ratio 12, Glucose Level 349H, Calcium Level 8.4L, Beta-Hydroxybutyrate (Chem panel) 0.99H 03/24/22 18:55: Glucometer 332H 03/24/22 19:47: Glucometer 261H 03/24/22 20:44: Glucometer 246H 03/24/22 21:51: Glucometer 176H 03/24/22 22:46: Glucometer 180H 03/24/22 23:46: Glucometer 194H 03/25/22 00:45: Glucometer 172H 03/25/22 02:47: Glucometer 170H 03/25/22 03:50: White Blood Count 12.5H, Red Blood Count 3.79L, Hemoglobin 9.7L, Hematocrit 30L, Mean Corpuscular Volume 80, Mean Corpuscular Hemoglobin 26, Mean Corpuscular Hemoglobin Concent 32, Red Cell Distribution Width 17.5H, Platelet Count 196, Mean Platelet Volume 9.9, Immature Granulocyte % (Auto) 1, Neutrophils (%) (Auto) 76H, Lymphocytes (%) (Auto) 17, Monocytes (%) (Auto) 6, Eosinophils (%) (Auto) 1, Basophils (%) (Auto) 0, Neutrophils # (Auto) 9.5H, Lymphocytes # (Auto) 2.1, Monocytes # (Auto) 0.8, Eosinophils # (Auto) 0.1, Basophils # (Auto) 0.0, Immature Granulocyte # (Auto) 0.1, Sodium Level 138, Potassium Level 4.4, Chloride Level 109H, Carbon Dioxide Level 18L, Anion Gap 11, Blood Urea Nitrogen 9, Creatinine 0.84, Estimat Glomerular Filtration Rate 88, BUN/Creatinine Ratio 11, Glucose Level 166H, Calcium Level 8.2L, Corrected Calcium 8.7, Phosphorus Level 1.9L, Magnesium Level 2.1, Total Bilirubin 0.3, Aspartate Amino Transf (AST/SGOT) 32, Alanine Aminotransferase (ALT/SGPT) 29, Alkaline Phosphatase 77, Total Protein 5.3L, Albumin 3.4 03/25/22 03:56: Glucometer 157H 03/25/22 04:46: Glucometer 168H 03/25/22 05:51: Glucometer 152H 03/25/22 06:51: Glucometer 130H 03/25/22 07:52: Glucometer 119H 03/25/22 08:48: Glucometer 146H 03/25/22 09:51: Glucometer 222H 03/25/22 10:44: Glucometer 225H 03/25/22 11:50: Glucometer 193H 03/25/22 12:00: Sodium Level 139, Potassium Level 4.4, Chloride Level 108H, Carbon Dioxide Level 21, Anion Gap 10, Blood Urea Nitrogen 6L, Creatinine 0.81, Estimat Glomerular Filtration Rate 92, BUN/Creatinine Ratio 7, Glucose Level 137H, Calcium Level 8.8 03/25/22 12:43: Glucometer 125H 03/25/22 13:53: Glucometer 130H 03/25/22 14:35: Glucometer 127H Microbiology 03/23/22 MRSA Screen - Final, Complete MRSA not isolated Patient resulted labs reviewed. Pending Labs Laboratory Tests 03/25/22 07:52: Glucometer 119 03/25/22 08:48: Glucometer 146 03/25/22 09:51: Glucometer 222 03/25/22 10:44: Glucometer 225 03/25/22 11:50: Glucometer 193 03/25/22 12:00: Sodium Level 139, Potassium Level 4.4, Chloride Level 108, Carbon Dioxide Level 21, Anion Gap 10, Blood Urea Nitrogen 6, Creatinine 0.81, Estimat Glomerular Filtration Rate 92, BUN/Creatinine Ratio 7, Glucose Level 137, Calcium Level 8.8 03/25/22 12:43: Glucometer 125 03/25/22 13:53: Glucometer 130 03/25/22 14:35: Glucometer 127 Discussion & Recommendations Discharge Planning: >30 minutes discharge planning Discharge Home Medications: Active Scripts Active Reported Gabapentin 600 Mg Tablet 600 Mg PO BID Miralax (Polyethylene Glycol 3350) 17 Gram Powd.pack 17 Gm PO BID PRN Novolog (Insulin Aspart) 100 Unit/Ml Susp 3-7 Units SC TIDWM SLIDING SCALE Ibuprofen 200 Mg Tablet 400 Mg PO Q8H PRN TAKES 2 (200MG) TAB Tylenol Extra Strength (Acetaminophen) 500 Mg Tablet 1,000 Mg PO Q8H PRN TAKES 2 (500MG) TAB Pantoprazole Sodium 40 Mg Tablet.dr 40 Mg PO DAILY Estradiol Tablet (Estradiol) 1 Mg Tablet 1 Mg PO DAILY Baqsimi (Glucagon) 3 Mg/Actuation [place] 3 Mg SC UD ONCE MONTHLY ON THE FIRST MONDAY OF EACH MONTH Atorvastatin Calcium 20 Mg Tablet 20 Mg PO DAILY Buprenorphine-Nalox 8-2Mg Film (Buprenorphine HCl/Naloxone HCl) 8 Mg-2 Mg Film 1 Each PO BID Ondansetron Odt (Ondansetron) 4 Mg Tab.rapdis 4 Mg PO TID PRN Promethazine Tablet (Promethazine HCl) 25 Mg Tablet 25 Mg PO TID PRN Instructions to patient/family Please see electronic discharge instructions given to patient. Problem Qualifiers (1) DKA, type 1: Diabetes mellitus complication detail: without coma Qualified Codes: E10.10 - Type 1 diabetes mellitus with ketoacidosis without coma EMERSON GARCIA MD Mar 25, 2022 13:51
[2022-03-25 20:16] VITALS: BP 146/94
== END 2022-03-25 16:00 | disposition home or self-care (01) ==
LOC: EDUNIT# 03:23 → ER FS 03:25 → INTOOBSV 06:30 → ICU 06:30
PROVIDERS: ADMIT Internal Medicine; ATTEND Internal Medicine
DX: E10.10 Type 1 diabetes mellitus with ketoacidosis without coma (principal); E10.65 Type 1 diabetes mellitus with hyperglycemia; I10 Essential (primary) hypertension; E78.5 Hyperlipidemia, unspecified; R10.9 Unspecified abdominal pain; R11.0 Nausea; E10.43 Type 1 diabetes mellitus with diabetic autonomic (poly)neuropathy; K31.84 Gastroparesis; F17.210 Nicotine dependence, cigarettes, uncomplicated; Z79.899 Other long term (current) drug therapy
CPT/HCPCS: 36410; 36415; 51702; 74018; 76937; 80048 ×3; 80053 ×3; 81000; 82010 ×2; 82805; 82947 ×3; 83036; 83690; 83735 ×3; 83874; 83880; 84100 ×2; 84484; 85007; 85025 ×2; 85027; 87081; 93005; 93041; 96366 ×2; 96368 ×2; 96372; 96375 ×2; 96376 ×3; 99291; C1751; G0378

== ENCOUNTER 2022-04-26 11:57 | Emergency (ER) | payer MEDICARE, MEDICAID ==
[~2022-04-26] VITALS: Ht 165.1 cm; Wt 63.5 kg
[~2022-04-26 11:57] MED LIST changes: +ACET-2267 PO; +ATOR20TA66 PO; +BUPR1FIL19 PO; +ESTR1TAB24 PO; +GBPN600T PO; +GLUC3SPR SC; +IBUP-2473 PO; +INSU100V16 SC; +ONDA4TAB11 PO; +PANT40TA52 PO; +POLY17PO6 PO
--- NOTE | 2022-04-26 12:12 | ED Abdominal Pain ---
General Stated Complaint: ABD PAIN; N/V History of Present Illness Date Seen by Provider: Apr 26, 2022 Time Seen by Provider: 12:07 Initial Comments 41-year-old female presents with abdominal pain. Patient has a history of chronic abdominal pain along with diabetes and frequent poor control her blood sugar. Patient reports that she has had 3 days of left lower quadrant pain nausea and vomiting. Patient reports that she did not come in because she was "trying to handle it herself" patient reports that her blood sugar was in the 200s at home and she took some extra insulin. No reports of fever, diarrhea, chest pain. Allergies and Home Medications Allergies Coded Allergies: Penicillins (Verified Allergy, Unknown, 03/18/22) azithromycin (Verified Allergy, Unknown, 03/18/22) cephalexin (Verified Allergy, Unknown, 03/18/22) meperidine (Verified Allergy, Unknown, 03/18/22) metoclopramide (Verified Allergy, Unknown, 03/18/22) Patient Home Medication List Home Medication List Reviewed: Yes Acetaminophen (Tylenol Extra Strength) 500 Mg Tablet, 1,000 MG PO Q8H PRN for PAIN-MILD (1-4), (Reported) Entered as Reported by: ALFRED WALLACE on 03/24/22 0951 Atorvastatin Calcium (Atorvastatin Calcium) 20 Mg Tablet, 20 MG PO DAILY, (Reported) Entered as Reported by: ALFRED WALLACE on 03/24/22 0948 Buprenorphine HCl/Naloxone HCl (Buprenorphine-Nalox 8-2Mg Film) 8 Mg-2 Mg Film, 1 EACH PO BID, (Reported) Entered as Reported by: ALFRED WALLACE on 03/24/22 0948 Estradiol (Estradiol Tablet) 1 Mg Tablet, 1 MG PO DAILY, (Reported) Entered as Reported by: ALFRED WALLACE on 03/24/22 0948 Gabapentin (Gabapentin) 600 Mg Tablet, 600 MG PO BID, (Reported) Entered as Reported by: ALFRED WALLACE on 03/24/22 1008 Glucagon (Baqsimi) 3 Mg/Actuation [place], 3 MG SC UD, (Reported) Entered as Reported by: ALFRED WALLACE on 03/24/22 0948 Ibuprofen (Ibuprofen) 200 Mg Tablet, 400 MG PO Q8H PRN for PAIN-MILD (1-4), (Reported) Entered as Reported by: ALFRED WALLACE on 03/24/22 0952 Insulin Aspart (Novolog) 100 Unit/Ml Susp, 3-7 UNITS SC TIDWM, (Reported) Entered as Reported by: ALFRED WALLACE on 03/24/22 0957 Ondansetron (Ondansetron Odt) 4 Mg Tab.rapdis, 4 MG PO TID PRN for NAUSEA/VOM ITING, (Reported) Entered as Reported by: ALFRED WALLACE on 03/24/22 0948 Pantoprazole Sodium (Pantoprazole Sodium) 40 Mg Tablet.dr, 40 MG PO DAILY, (Reported) Entered as Reported by: ALFRED WALLACE on 03/24/22 0948 Phenazopyridine HCl (Pyridium) 100 Mg Tablet, 100 MG PO TID Prescribed by: CAREY ACOSTA on 04/26/221651 Polyethylene Glycol 3350 (Miralax) 17 Gram Powd.pack, 17 GM PO BID PRN for CONSTIPATION-2ND LINE, (Reported) Entered as Reported by: ALFRED WALLACE on 03/24/22 1002 Promethazine HCl (Promethazine Tablet) 25 Mg Tablet, 25 MG PO TID PRN for NAUSEA/VOMITING, (Reported) Entered as Reported by: ALFRED WALLACE on 03/24/22 0948 Sulfamethoxazole/Trimethoprim (Bactrim Ds Tablet) 1 Each Tablet, 1 EACH PO BID Prescribed by: CAREY ACOSTA on 04/26/221651 Review of Systems Review of Systems Constitutional: No chills, No fever Respiratory: Denies Cough, Denies Shortness of Air Gastrointestinal: Abdominal Pain, Nausea, Vomiting Genitourinary: Denies Burning, Denies Flank Pain Musculoskeletal: no symptoms reported Skin: no symptoms reported Psychiatric/Neurological: No Symptoms Reported Past Knpxnmh-[id number]-[id number] Hx Immunizations Up To Date First/Initial COVID19 Vaccinat: none Past Medical History Surgery/Hospitalization HX: left upper arm nerve repain, gastric stimulator, insulin pump Surgeries: Yes Abdominal, Hysterectomy, Orthopedic High Cholesterol, Hypertension Diabetes, Insulin dep Family Medical History No Pertinent Family Hx Physical Exam Vital Signs Vital Signs - First Documented 04/26/22 12:00 Temp 36.4 Pulse 74 Resp 17 B/P (MAP) 190/87 (121) O2 Delivery Room Air Capillary Refill : Height/Weight/BMI Height: '" Weight: lbs. oz. kg; 24.65 BMI Method: General Appearance: mild distress, other (Retching) Respiratory: lungs clear, normal breath sounds Cardiovascular: normal peripheral pulses, regular rate, rhythm Gastrointestinal: soft, guarding, tenderness (llq) Extremities: normal range of motion Neurologic/Psychiatric: alert, normal mood/affect, oriented x 3 Skin: other (midline scar) Focused Exam Lactate Level 04/26/22 12:05: Lactic Acid Level 1.86 Lactic Acid Level Laboratory Tests Test 04/26/22 12:05 Lactic Acid Level 1.86 MMOL/L (0.50-2.00) Progress/Results/Core Measures Results/Orders Lab Results Laboratory Tests Test 04/26/22 12:05 04/26/22 13:00 04/26/22 14:25 04/26/22 16:27 Range/Units Lactic Acid Level 1.86 0.50-2.00 MMOL/L White Blood Count 5.4 4.3-11.0 10^3/uL Red Blood Count 4.62 3.80-5.11 10^6/uL Hemoglobin 11.8 11.5-16.0 g/dL Hematocrit 36 35-52 % Mean Corpuscular Volume 78 L 80-99 fL Mean Corpuscular Hemoglobin 26 25-34 pg Mean Corpuscular Hemoglobin Concent 33 32-36 g/dL Red Cell Distribution Width 17.0 H 10.0-14.5 % Platelet Count 130 130-400 10^3/uL Mean Platelet Volume 10.5 9.0-12.2 fL Immature Granulocyte % (Auto) 1 % Neutrophils (%) (Auto) 61 42-75 % Lymphocytes (%) (Auto) 28 12-44 % Monocytes (%) (Auto) 7 0-12 % Eosinophils (%) (Auto) 2 0-10 % Basophils (%) (Auto) 1 0-10 % Neutrophils # (Auto) 3.3 1.8-7.8 X 10^3 Lymphocytes # (Auto) 1.5 1.0-4.0 X 10^3 Monocytes # (Auto) 0.4 0.0-1.0 X 10^3 Eosinophils # (Auto) 0.1 0.0-0.3 10^3/uL Basophils # (Auto) 0.1 0.0-0.1 10^3/uL Immature Granulocyte # (Auto) 0.0 0.0-0.1 10^3/uL Smear Scan FEW PLT CLUMPS Sodium Level 141 135-145 MMOL/L Potassium Level 4.1 3.6-5.0 MMOL/L Chloride Level 101 98-107 MMOL/L Carbon Dioxide Level 27 21-32 MMOL/L Anion Gap 13 5-14 MMOL/L Blood Urea Nitrogen 18 7-18 MG/DL Creatinine 0.73 0.60-1.30 MG/DL Estimat Glomerular Filtration Rate 105 BUN/Creatinine Ratio 25 Glucose Level 294 H 70-105 MG/DL Calcium Level 9.0 8.5-10.1 MG/DL Corrected Calcium 8.7 8.5-10.1 MG/DL Total Bilirubin 0.3 0.1-1.0 MG/DL Aspartate Amino Transf (AST/SGOT) 13 5-34 U/L Alanine Aminotransferase (ALT/SGPT) 11 0-55 U/L Alkaline Phosphatase 117 40-136 U/L C-Reactive Protein < 0.30 <0.50 MG/DL Total Protein 7.2 6.4-8.2 GM/DL Albumin 4.4 3.2-4.5 GM/DL Lipase 8 8-78 U/L Urine Color YELLOW Urine Clarity CLOUDY H Urine pH 6.5 5-9 Urine Specific [place] 1.025 H 1.016-1.022 Urine Protein NEGATIVE NEGATIVE Urine Glucose (UA) 3+ H NEGATIVE Urine Ketones 1+ H NEGATIVE Urine Nitrite POSITIVE H NEGATIVE Urine Bilirubin NEGATIVE NEGATIVE Urine Urobilinogen 0.2 < = 1.0 MG/DL Urine Leukocyte Esterase NEGATIVE NEGATIVE Urine RBC (Auto) NEGATIVE NEGATIVE Urine RBC NONE /HPF Urine WBC 10-25 H /HPF Urine Squamous Epithelial Cells 5-10 /HPF Urine Crystals NONE /LPF Urine Bacteria LARGE H /HPF Urine Casts NONE /LPF Urine Mucus LARGE H /LPF Urine Culture Indicated YES Urine Opiates Screen POSITIVE H NEGATIVE Urine Oxycodone Screen NEGATIVE NEGATIVE Urine Methadone Screen NEGATIVE NEGATIVE Urine Propoxyphene Screen NEGATIVE NEGATIVE Urine Barbiturates Screen NEGATIVE NEGATIVE Ur Tricyclic Antidepressants Screen NEGATIVE NEGATIVE Urine Phencyclidine Screen NEGATIVE NEGATIVE Urine Amphetamines Screen NEGATIVE NEGATIVE Urine Methamphetamines Screen NEGATIVE NEGATIVE Urine Benzodiazepines Screen NEGATIVE NEGATIVE Urine Cocaine Screen NEGATIVE NEGATIVE Urine Cannabinoids Screen POSITIVE H NEGATIVE My Orders Orders - ACOSTA,CAREY L DO Cbc With Automated Diff (04/26/22 12:13) Comprehensive Metabolic Panel (04/26/22 12:13) Drug Screen Stat (Urine) (04/26/22 12:13) Lactic Acid Analyzer (04/26/22 12:13) Lipase (04/26/22 12:13) Ua Culture If Indicated (04/26/22 12:13) Crp Fs (04/26/22 12:13) Ondansetron Injection (Zofran Injectio (04/26/22 12:15) Ns Iv 1000 Ml (Sodium Chloride 0.9%) (04/26/22 12:13) Hyoscyamine Sl Tablet (Levsin Sl Tablet) (04/26/22 12:15) Ketorolac Injection (Toradol Injection) (04/26/22 12:13) Accucheck Stat ONCE (04/26/22 12:18) Morphine Injection (Morphine Injection (04/26/22 14:45) Promethazine Injection (Phenergan Injec (04/26/22 14:42) Ct Abdomen/Pelvis Wo (04/26/22 15:15) Urine Culture (04/26/22 16:27) Medications Given in ED Current Medications Medications Dose Ordered Sig/Joelle Route Start Time Stop Time Status Last Admin Dose Admin Hyoscyamine Sulfate 0.125 mg ONCE ONCE SL 04/26/22 12:15 04/26/22 12:17 DC 04/26/22 12:41 0.125 MG Morphine Sulfate 4 mg ONCE ONCE IVP 04/26/22 14:45 04/26/22 14:46 DC 04/26/22 14:49 4 MG Ondansetron HCl 4 mg ONCE ONCE IVP 04/26/22 12:15 04/26/22 12:17 DC 04/26/22 12:40 4 MG Vital Signs/I&O 04/26/22 12:00 Temp 36.4 Pulse 74 Resp 17 B/P (MAP) 190/87 (121) O2 Delivery Room Air Progress Progress Note : Progress Note Patient with no acute findings on labs or CT exam. Patient's pain was in the left lower quadrant and not consistent with any potential stent problem in the gallbladder area. During patient stay she repeatedly asked for Dilaudid by name. After I discussed findings with patient that there were no acute findings. I did state that I was waiting urine to be sure she did not have a urinary tract infection is causing her discomfort. Patient provided a urine but then shortly after that states that she was ready to go home and wanted to be discharged. Patient was stable upon discharge Departure Impression Primary Impression: Left lower quadrant abdominal pain Additional Impression: Acute cystitis with hematuria Disposition: HOME, SELF-CARE Condition: Stable Departure-Patient Inst. Referrals: NANCY BAH DO (PCP) Primary Care Physician Patient Instructions: Abdominal Pain, Adult ED, Urinary Tract Infection, Adult ED Add. Discharge Instructions: Please follow-up with your primary care provider for further outpatient evaluation if symptoms continue You have a urinary tract infection. Please fill prescription for antibiotic and have your urine rechecked in 7 days to be sure improved Scripts Phenazopyridine HCl (Pyridium) 100 Mg Tablet 100 MG PO TID for Pain, #10 TAB Prov: CAREY ACOSTA DO 04/26/22 Sulfamethoxazole/Trimethoprim (Bactrim Ds Tablet) 1 Each Tablet 1 EACH PO BID for 7 Days, #14 TAB Prov: CAREY ACOSTA DO 04/26/22 CAREY ACOSTA DO Apr 26, 2022 12:12
[2022-04-26] MEDS ORDERED: NS IV 1000 ML 1,000 ML IV STA (12:13)
[2022-04-26] MEDS ORDERED: KETOROLAC 30 MG/ML VIAL IVP STA (12:13)
[2022-04-26] MEDS ORDERED: HYOSCYAMINE 0.125 MG (LEVSIN) TAB SL ONE (12:15)
[2022-04-26] MEDS ORDERED: ONDANSETRON 4 MG/2 ML (SDV) Z0FRAN IVP ONE (12:15)
[2022-04-26 13:13] LABS: HEMATOCRIT 36 % (35-52); HEMOGLOBIN 11.8 g/dL (11.5-16.0); MEAN CORPUSCULAR HEMOGLOBIN 26 pg (25-34); MEAN CORPUSCULAR HGB CONC 33 g/dL (32-36); MEAN CORPUSCULAR VOLUME 78 fL (80-99); WHITE BLOOD COUNT 5.4 10^3/uL (4.3-11.0)
[2022-04-26 13:14] LABS: BASOPHILS % (AUTO) 1 % (0-10); EOSINOPHILS % (AUTO) 2 % (0-10); LYMPHOCYTES % (AUTO) 28 % (12-44); MEAN PLATELET VOLUME 10.5 fL (9.0-12.2); MONOCYTES % (AUTO) 7 % (0-12); NEUTROPHILS % (AUTO) 61 % (42-75); PLATELET COUNT 130 10^3/uL (130-400)
[2022-04-26 13:15] LABS: BASOPHILS # (AUTO) 0.1 10^3/uL (0.0-0.1); EOSINOPHILS # (AUTO) 0.1 10^3/uL (0.0-0.3); LYMPHOCYTES # (AUTO) 1.5 X 10^3 (1.0-4.0); MONOCYTES # (AUTO) 0.4 X 10^3 (0.0-1.0); NEUTROPHILS # (AUTO) 3.3 X 10^3 (1.8-7.8)
[2022-04-26 13:46] LABS: SMEAR SCAN COMMENT FEW PLT CLUMPS
[2022-04-26] MEDS ORDERED: PROMETHAZINE INJ 25 MG/ML (PHENERGAN) AMP IVP STA (14:42)
[2022-04-26] MEDS ORDERED: morphine INJ 10 MG/ML 1ML (SYR OR VIAL) IVP ONE (14:45)
[2022-04-26 14:48] LABS: ALANINE AMINOTRANSFERASE 11 U/L (0-55); ALBUMIN 4.4 GM/DL (3.2-4.5); ALKALINE PHOSPHATASE 117 U/L (40-136); BILIRUBIN,TOTAL 0.3 MG/DL (0.1-1.0); BUN/CREATININE RATIO 25; CARBON DIOXIDE 27 MMOL/L (21-32); CHLORIDE 101 MMOL/L (98-107); CREATININE SERUM 0.73 MG/DL (0.60-1.30); GFR ESTIMATED 105; GLUCOSE 294 MG/DL (70-105); POTASSIUM 4.1 MMOL/L (3.6-5.0); SODIUM 141 MMOL/L (135-145); TOTAL PROTEIN 7.2 GM/DL (6.4-8.2)
[2022-04-26 14:49] LABS: LIPASE 8 U/L (8-78)
--- NOTE | 2022-04-26 15:55 | Diagnostic Imaging Report ---
PROCEDURE: CT abdomen and pelvis without contrast. TECHNIQUE: Multiple contiguous axial images were obtained through the abdomen and pelvis without the use of intravenous contrast. Auto Exposure Controls were utilized during the CT exam to meet ALARA standards for radiation dose reduction. INDICATION: Abdominal pain. COMPARISON: 03/18/2022. FINDINGS: Included portions of the lung bases are clear. CT ABDOMEN: Small bowel loops are nondistended. Normal appendix is identified. There is scattered colonic diverticulosis, but no CT evidence of acute diverticulitis. The kidneys, adrenal glands, spleen, pancreas, and liver have an unremarkable noncontrast CT appearance. Indwelling common bile duct stent is identified. The cephalad portion of the stent resides within the mid to upper common bile duct. Common bile duct measures 1.5 cm in diameter. This area was largely obscured by motion artifact on prior exam, but common bile duct appears much less prominent on that exam. There is no loculated fluid collection, free fluid, or free air within the abdomen. No abnormal mesenteric or retroperitoneal adenopathy is seen. There is mild scattered calcified aortic and arterial atherosclerosis. Osseous structures show no acute abnormalities. CT PELVIS: Urinary bladder is unopacified. No calculi are seen within the urinary bladder. There is trace free fluid within the pelvis. There is no loculated fluid collection or free air. No abnormal adenopathy is seen. Osseous structures show no acute abnormalities. IMPRESSION: 1. Common bile duct stent is identified. Although the stent appears to be in appropriate position, common bile duct does appear more dilated on today's exam. This does raise concern for potential stent malfunction/occlusion. Clinical correlation is advised. 2. Trace amount of free fluid within the lower pelvis; possibly physiologic. 3. Colonic diverticulosis, but no CT evidence acute diverticulitis. Dictated by: Dictated on workstation # [id number]
[2022-04-26 16:46] LABS: BACTERIA,URINE LARGE /HPF; BILIRUBIN,URINE NEGATIVE (NEGATIVE); CLARITY,URINE CLOUDY; COLOR,URINE YELLOW; GLUCOSE, URINE (UA) 3+ (NEGATIVE); KETONES,URINE 1+ (NEGATIVE); LEUKOCYTE ESTERASE ,URINE NEGATIVE (NEGATIVE); NITRITE,URINE POSITIVE (NEGATIVE); PH,URINE 6.5 (5-9); PROTEIN,URINE NEGATIVE (NEGATIVE)
[2022-04-26 16:50] LABS: BENZODIAZEPINES SCREEN URINE NEGATIVE (NEGATIVE)
[2022-04-26 16:51] LABS: AMPHETAMINE SCREEN, URINE NEGATIVE (NEGATIVE); BARBITURATE SCREEN URINE NEGATIVE (NEGATIVE); CANNABINOID SCREEN, URINE POSITIVE (NEGATIVE); COCAINE SCREEN URINE NEGATIVE (NEGATIVE); METHADONE STAT NEGATIVE (NEGATIVE); OPIATE SCREEN URINE POSITIVE (NEGATIVE); OXYCODONE STAT NEGATIVE (NEGATIVE); PROPOXYPHENE STAT NEGATIVE (NEGATIVE); TRICYCLIC ANTIDEPRESSANTS SCRE NEGATIVE (NEGATIVE)
[2022-04-26] MEDS ORDERED: PHEN-639 PO (16:52)
[2022-04-26] MEDS ORDERED: SULF1TAB38 PO (16:52)
[2022-04-26 16:56] VITALS: BP 148/76
== END 2022-04-26 16:56 | disposition home or self-care (01) ==
LOC: EDUNIT# 11:57 → ER FS 11:58
DX: N30.01 Acute cystitis with hematuria (principal); E11.9 Type 2 diabetes mellitus without complications; Z96.41 Presence of insulin pump (external) (internal); Z79.4 Long term (current) use of insulin
CPT/HCPCS: 36415; 74176; 80053; 80306; 81000; 83605; 83690; 85025; 86141; 87077; 87088

== ENCOUNTER 2022-06-20 13:47 | Observation (INO) | payer MEDICARE, MEDICAID ==
[~2022-06-20] VITALS: Ht 165.1 cm; Wt 65.5 kg
[~2022-06-20 13:47] MED LIST changes: +GLUC3SPR NS; -GLUC3SPR SC; +PHEN-639 PO; +SULF1TAB38 PO
[2022-06-20] MEDS ORDERED: ONDANSETRON 4 MG/2 ML (SDV) Z0FRAN IVP ONE ×2 (14:00→19:00)
[2022-06-20] MEDS ORDERED: LACTATED RINGERS 1,000 ML IV ONE (14:00)
[2022-06-20 14:24] LABS: BILIRUBIN,URINE NEGATIVE (NEGATIVE); CLARITY,URINE CLEAR; COLOR,URINE YELLOW; GLUCOSE, URINE (UA) 2+ (NEGATIVE); KETONES,URINE TRACE (NEGATIVE); LEUKOCYTE ESTERASE ,URINE NEGATIVE (NEGATIVE); NITRITE,URINE POSITIVE (NEGATIVE); PROTEIN,URINE NEGATIVE (NEGATIVE)
[2022-06-20] MEDS ORDERED: fentaNYL INJ 100 MCG/2 ML AMP IM ONE (14:30)
[2022-06-20 14:32] LABS: BACTERIA,URINE LARGE /HPF; SQUAMOUS EPITHELIAL CELL,UR 0-2 /HPF
[2022-06-20 14:54] LABS: BASOPHILS # (AUTO) 0.1 10^3/uL (0.0-0.1); BASOPHILS % (AUTO) 1 % (0-10); EOSINOPHILS # (AUTO) 0.3 10^3/uL (0.0-0.3); EOSINOPHILS % (AUTO) 4 % (0-10); HEMATOCRIT 38 % (35-52); HEMOGLOBIN 12.1 g/dL (11.5-16.0); LYMPHOCYTES # (AUTO) 1.5 10^3/uL (1.0-4.0); LYMPHOCYTES % (AUTO) 17 % (12-44); MEAN CORPUSCULAR HEMOGLOBIN 26 pg (25-34); MEAN CORPUSCULAR HGB CONC 32 g/dL (32-36); MEAN CORPUSCULAR VOLUME 80 fL (80-99); MEAN PLATELET VOLUME 11.4 fL (9.0-12.2); MONOCYTES # (AUTO) 0.5 10^3/uL (0.0-1.0); MONOCYTES % (AUTO) 5 % (0-12); NEUTROPHILS # (AUTO) 6.8 10^3/uL (1.8-7.8); NEUTROPHILS % (AUTO) 74 % (42-75); PLATELET COUNT 182 10^3/uL (130-400); WHITE BLOOD COUNT 9.2 10^3/uL (4.3-11.0)
[2022-06-20 15:19] LABS: AMPHETAMINE SCREEN, URINE NEGATIVE (NEGATIVE); BARBITURATE SCREEN URINE NEGATIVE (NEGATIVE); BENZODIAZEPINES SCREEN URINE NEGATIVE (NEGATIVE); CANNABINOID SCREEN, URINE POSITIVE (NEGATIVE); COCAINE SCREEN URINE NEGATIVE (NEGATIVE); METHADONE STAT NEGATIVE (NEGATIVE); OPIATE SCREEN URINE NEGATIVE (NEGATIVE); OXYCODONE STAT NEGATIVE (NEGATIVE); PROPOXYPHENE STAT NEGATIVE (NEGATIVE); TRICYCLIC ANTIDEPRESSANTS SCRE NEGATIVE (NEGATIVE)
[2022-06-20 15:22] LABS: CHLORIDE 104 MMOL/L (98-107); POTASSIUM 4.3 MMOL/L (3.6-5.0); SODIUM 142 MMOL/L (135-145)
[2022-06-20] MEDS ORDERED: morphine INJ 10 MG/ML 1ML (SYR OR VIAL) IVP STA (15:22)
[2022-06-20 15:23] LABS: ALANINE AMINOTRANSFERASE 9 U/L (0-55); ALBUMIN 4.4 GM/DL (3.2-4.5); ALKALINE PHOSPHATASE 111 U/L (40-136); BILIRUBIN,TOTAL 0.4 MG/DL (0.1-1.0); BUN/CREATININE RATIO 20; CALCIUM 9.6 MG/DL (8.5-10.1); CARBON DIOXIDE 25 MMOL/L (21-32); CREATININE SERUM 0.82 MG/DL (0.60-1.30); GFR ESTIMATED 91; GLUCOSE 310 MG/DL (70-105); LIPASE 6 U/L (8-78); TOTAL PROTEIN 6.8 GM/DL (6.4-8.2)
[2022-06-20] MEDS ORDERED: NS IV 500 ML 500 ML IV ONE (15:30)
[2022-06-20] MEDS ORDERED: PROMETHAZINE INJ 25 MG/ML (PHENERGAN) AMP IVP ONE (15:30)
[2022-06-20] MEDS ORDERED: cefTRIAXone 1 GM PRE-MIX 50 ML IV STA (15:47)
--- NOTE | 2022-06-20 15:50 | ED Abdominal Pain ---
General Chief Complaint: General Problems/Pain Stated Complaint: VOMITING; ABD PAIN Nursing Triage Note: PT AMBULATE TO ROOM FS05 WITH C/O N/V AND ABD PAIN X2 DAYS. Source of Information: Patient Exam Limitations: No Limitations (INDY BAXTER MD) History of Present Illness Date Seen by Provider: Jun 20, 2022 Time Seen by Provider: 13:50 Initial Comments This 41-year-old woman presents to the emergency room with 2 to 3 days of severe abdominal pain that is focused in the right side as well as nausea and vomiting. She has had numerous episodes like this in the past. She is a type I diabetic with gastroparesis. She reports usually treatment is focused on symptomatic ca re and she usually calms down after receiving medications. She also has history of chronic marijuana use and her symptoms may be related to cannabis hyperemesis syndrome. She has had hysterectomy and cholecystectomy. She is not sure how well her blood sugar has been controlled but believes blood sugars have been in the 200s. She does wear an insulin pump and she has it on at present. She was admitted in March for DKA. In April she was seen for a similar abdominal pain presentation and treated for UTI. She reports Rocephin is usually given to her for UTI. She has extremely poor vascular access and very few veins are visible on the skin or by ultrasound. (INDY BAXTER MD) Allergies and Home Medications Allergies Coded Allergies: Penicillins (Verified Allergy, Unknown, 03/18/22) azithromycin (Verified Allergy, Unknown, 03/18/22) cephalexin (Verified Allergy, Unknown, 03/18/22) meperidine (Verified Allergy, Unknown, 03/18/22) metoclopramide (Verified Allergy, Unknown, 03/18/22) Patient Home Medication List Home Medication List Reviewed: Yes (INDY BAXTER MD) Acetaminophen (Tylenol Extra Strength) 500 Mg Tablet, 1,000 MG PO Q8H PRN for PAIN-MILD (1-4), (Reported) Entered as Reported by: ALFRED WALLACE on 03/24/22 0951 Atorvastatin Calcium (Atorvastatin Calcium) 20 Mg Tablet, 20 MG PO DAILY, (Reported) Entered as Reported by: ALFRED WALLACE on 03/24/22 0948 Buprenorphine HCl/Naloxone HCl (Buprenorphine-Nalox 8-2Mg Film) 8 Mg-2 Mg Film, 1 EACH PO BID, (Reported) Entered as Reported by: ALFRED WALLACE on 03/24/22 0948 Estradiol (Estradiol Tablet) 1 Mg Tablet, 1 MG PO DAILY, (Reported) Entered as Reported by: ALFRED WALLACE on 03/24/22 0948 Gabapentin (Gabapentin) 600 Mg Tablet, 600 MG PO BID, (Reported) Entered as Reported by: ALFRED WALLACE on 03/24/22 1008 Glucagon (Baqsimi) 3 Mg/Actuation [place], 3 MG SC UD, (Reported) Entered as Reported by: ALFRED WALLACE on 03/24/22 0948 Ibuprofen (Ibuprofen) 200 Mg Tablet, 400 MG PO Q8H PRN for PAIN-MILD (1-4), (Reported) Entered as Reported by: ALFRED WALLACE on 03/24/22 0952 Insulin Aspart (Novolog) 100 Unit/Ml Susp, 3-7 UNITS SC TIDWM, (Reported) Entered as Reported by: ALFRED WALLACE on 03/24/22 0957 Ondansetron (Ondansetron Odt) 4 Mg Tab.rapdis, 4 MG PO TID PRN for NA USEA/VOMITING, (Reported) Entered as Reported by: ALFRED WALLACE on 03/24/22 0948 Pantoprazole Sodium (Pantoprazole Sodium) 40 Mg Tablet.dr, 40 MG PO DAILY, (Reported) Entered as Reported by: ALFRED WALLACE on 03/24/22 0948 Phenazopyridine HCl (Pyridium) 100 Mg Tablet, 100 MG PO TID Prescribed by: CAREY ACOSTA on 04/26/221651 Polyethylene Glycol 3350 (Miralax) 17 Gram Powd.pack, 17 GM PO BID PRN for CONSTIPATION-2ND LINE, (Reported) Entered as Reported by: ALFRED WALLACE on 03/24/22 1002 Promethazine HCl (Promethazine Tablet) 25 Mg Tablet, 25 MG PO TID PRN for NAUSEA/VOMITING, (Reported) Entered as Reported by: ALFRED WALLACE on 03/24/22 0948 Sulfamethoxazole/Trimethoprim (Bactrim Ds Tablet) 1 Each Tablet, 1 EACH PO BID Prescribed by: CAREY ACOSTA on 04/26/221651 Review of Systems Review of Systems Constitutional: no symptoms reported EENTM: No Symptoms Reported Respiratory: No Symptoms Reported Cardiovascular: No Symptoms Reported Gastrointestinal: See HPI Genitourinary: See HPI Musculoskeletal: no symptoms reported Skin: no symptoms reported Psychiatric/Neurological: No Symptoms Reported Endocrine: See HPI Hematologic/Lymphatic: No Symptoms Reported (INDY BAXTER MD) Past Ispskxk-Yfgmcs-Oybybp Hx Patient Social History Tobacco Use?: Yes Tobacco type used: Cigarettes Smoking Status: Heavy Tobacco Smoker Smokeless Tobacco Frequency: Never a User Use of E-Cig and/or Vaping dev: No Use of E-Cig and/or Vaping Singh: Never a User Substance use?: Yes Substance type: Marijuana (Regular use) Alcohol Use?: No Pt feels they are or have been: No (INDY BAXTER MD) Immunizations Up To Date First/Initial COVID19 Vaccinat: none (INDY BAXTER MD) Past Medical History Surgery/Hospitalization HX: left upper arm nerve repain, gastric stimulator, insulin pump Surgeries: Yes Abdominal (Gastric stimulator placement and removal), Gallbladder, Hysterectomy, Orthopedic Respiratory: No Cardiac: Yes High Cholesterol, Hypertension Neurological: No Diabetes, Insulin dep Cancer: No Psychosocial: No Integumentary: No (INDY BAXTER MD) Family Medical History No Pertinent Family Hx (INDY BAXTER MD) Physical Exam Vital Signs Vital Signs - First Documented 06/20/22 14:02 Temp 36.2 Pulse 62 Resp 15 B/P (MAP) 179/79 (112) O2 Delivery Room Air (RED LIN) Vital Signs Capillary Refill : Less Than 3 Seconds (INDY BAXTER MD) Height/Weight/BMI Height: '" Weight: lbs. oz. kg; 23.00 BMI Method: General Appearance: WD/WN, moderate distress HEENT: PERRL/EOMI, normal ENT inspection, pharynx normal Neck: normal inspection Respiratory: lungs clear, normal breath sounds, no respiratory distress Cardiovascular: regular rate, rhythm, no edema, no murmur Gastrointestinal: soft, abnormal bowel sounds (Decreased); No distended; tenderness (Throughout the right abdomen) Extremities: normal inspection, no pedal edema, other (Left upper extremity scars) Neurologic/Psychiatric: rehabilitation medicine physician II-XII nml as tested, no motor/sensory deficits, alert, normal mood/affect, oriented x 3 Skin: normal color, warm/dry (INDY BAXTER MD) Progress/Results/Core Measures Results/Orders Lab Results Laboratory Tests Test 06/20/22 14:02 06/20/22 14:38 06/20/22 14:45 Range/Units Urine Color YELLOW Urine Clarity CLEAR Urine pH 7.0 5-9 Urine Specific [place] 1.015 L 1.016-1.022 Urine Protein NEGATIVE NEGATIVE Urine Glucose (UA) 2+ H NEGATIVE Urine Ketones TRACE H NEGATIVE Urine Nitrite POSITIVE H NEGATIVE Urine Bilirubin NEGATIVE NEGATIVE Urine Urobilinogen 0.2 < = 1.0 MG/DL Urine Leukocyte Esterase NEGATIVE NEGATIVE Urine RBC (Auto) TRACE-I H NEGATIVE Urine RBC NONE /HPF Urine WBC 5-10 H /HPF Urine Squamous Epithelial Cells 0-2 /HPF Urine Crystals NONE /LPF Urine Bacteria LARGE H /HPF Urine Casts NONE /LPF Urine Mucus NEGATIVE /LPF Urine Culture Indicated YES Urine Opiates Screen NEGATIVE NEGATIVE Urine Oxycodone Screen NEGATIVE NEGATIVE Urine Methadone Screen NEGATIVE NEGATIVE Urine Propoxyphene Screen NEGATIVE NEGATIVE Urine Barbiturates Screen NEGATIVE NEGATIVE Ur Tricyclic Antidepressants Screen NEGATIVE NEGATIVE Urine Phencyclidine Screen NEGATIVE NEGATIVE Urine Amphetamines Screen NEGATIVE NEGATIVE Urine Methamphetamines Screen NEGATIVE NEGATIVE Urine Benzodiazepines Screen NEGATIVE NEGATIVE Urine Cocaine Screen NEGATIVE NEGATIVE Urine Cannabinoids Screen POSITIVE H NEGATIVE Glucometer 312 H 70-110 MG/DL White Blood Count 9.2 4.3-11.0 10^3/uL Red Blood Count 4.71 3.80-5.11 10^6/uL Hemoglobin 12.1 11.5-16.0 g/dL Hematocrit 38 35-52 % Mean Corpuscular Volume 80 80-99 fL Mean Corpuscular Hemoglobin 26 25-34 pg Mean Corpuscular Hemoglobin Concent 32 32-36 g/dL Red Cell Distribution Width 17.4 H 10.0-14.5 % Platelet Count 182 130-400 10^3/uL Mean Platelet Volume 11.4 9.0-12.2 fL Immature Granulocyte % (Auto) 0 % Neutrophils (%) (Auto) 74 42-75 % Lymphocytes (%) (Auto) 17 12-44 % Monocytes (%) (Auto) 5 0-12 % Eosinophils (%) (Auto) 4 0-10 % Basophils (%) (Auto) 1 0-10 % Neutrophils # (Auto) 6.8 1.8-7.8 10^3/uL Lymphocytes # (Auto) 1.5 1.0-4.0 10^3/uL Monocytes # (Auto) 0.5 0.0-1.0 10^3/uL Eosinophils # (Auto) 0.3 0.0-0.3 10^3/uL Basophils # (Auto) 0.1 0.0-0.1 10^3/uL Immature Granulocyte # (Auto) 0.0 0.0-0.1 10^3/uL Sodium Level 142 135-145 MMOL/L Potassium Level 4.3 3.6-5.0 MMOL/L Chloride Level 104 98-107 MMOL/L Carbon Dioxide Level 25 21-32 MMOL/L Anion Gap 13 5-14 MMOL/L Blood Urea Nitrogen 16 7-18 MG/DL Creatinine 0.82 0.60-1.30 MG/DL Estimat Glomerular Filtration Rate 91 BUN/Creatinine Ratio 20 Glucose Level 310 H 70-105 MG/DL Calcium Level 9.6 8.5-10.1 MG/DL Corrected Calcium 9.3 8.5-10.1 MG/DL Total Bilirubin 0.4 0.1-1.0 MG/DL Aspartate Amino Transf (AST/SGOT) 14 5-34 U/L Alanine Aminotransferase (ALT/SGPT) 9 0-55 U/L Alkaline Phosphatase 111 40-136 U/L C-Reactive Protein < 0.30 <0.50 MG/DL Total Protein 6.8 6.4-8.2 GM/DL Albumin 4.4 3.2-4.5 GM/DL Lipase 6 L 8-78 U/L Serum Test, Qualitative NEGATIVE NEGATIVE (RED LIN) My Orders Orders - RED LIN Ekg Tracing (06/20/22 16:56) Droperidol Inj (Ed Only) (Inapsine Inj ( (06/20/22 17:00) Diphenhydramine Injection (Benadryl Inje (06/20/22 17:00) Fentanyl Inj (Sublimaze Injection) (06/20/22 19:00) Ondansetron Injection (Zofran Injectio (06/20/22 19:00) Ed Admission (Communication) (06/20/22 19:24) (RED LIN) Medications Given in ED Current Medications Medications Dose Ordered Sig/Joelle Route Start Time Stop Time Status Last Admin Dose Admin Diphenhydramine HCl 25 mg ONCE ONCE IVP 06/20/22 17:00 06/20/22 17:01 DC 06/20/22 17:11 25 MG Droperidol 2.5 mg ONCE ONCE IV 06/20/22 17:00 06/20/22 17:01 DC 06/20/22 17:11 2.5 MG Fentanyl Citrate 75 mcg ONCE ONCE IVP 06/20/22 19:00 06/20/22 19:01 DC 06/20/22 19:11 75 MCG Fentanyl Citrate 100 mcg ONCE ONCE IM 06/20/22 14:30 06/20/22 14:31 DC 06/20/22 14:31 100 MCG Ketorolac Tromethamine 15 mg ONCE ONCE IVP 06/20/22 16:00 06/20/22 16:01 DC 06/20/22 16:25 15 MG Lactated Ringer's 1,000 ml @ 0 mls/hr Q0M ONCE IV 06/20/22 14:00 06/20/22 14:01 DC 06/20/22 14:50 999 MLS/HR Ondansetron HCl 8 mg ONCE ONCE IVP 06/20/22 14:00 06/20/22 14:01 DC 06/20/22 14:50 8 MG Ondansetron HCl 8 mg ONCE ONCE IVP 06/20/22 19:00 06/20/22 19:01 DC 06/20/22 19:10 8 MG Promethazine HCl 25 mg ONCE ONCE IVP 06/20/22 15:30 06/20/22 15:31 DC 06/20/22 15:32 25 MG Sodium Chloride 500 ml @ 0 mls/hr Q0M ONCE IV 06/20/22 15:30 06/20/22 15:31 DC 06/20/22 15:32 999 MLS/HR (RED LIN) Vital Signs/I&O 06/20/22 14:02 Temp 36.2 Pulse 62 Resp 15 B/P (MAP) 179/79 (112) O2 Delivery Room Air (RED LIN) Blood Pressure Mean: 112 FSBG Bedside Testing Finger Stick Blood Glucose: 312 Blood Glucose Action Taken: PROVIDER NOTIFIED (INDY BAXTER MD) Progress Progress Note : Time: 15:58 Progress Note Patient was interviewed and examined shortly after arrival. She has very poor vascular access. Multiple nursing attempts to establish an IV in her forearm failed. 2 attempts at establishing IV by ultrasound guidance in the arms by me also failed. Finally an IV was established in the right ankle. IV fluids are infusing. She is received fentanyl IM and morphine IV for pain. Zofran was given for nausea and vomiting. She has refractory nausea and dry heaving. Phe nergan is now being infused. She initially received a liter of LR for hydration. She is now receiving a 500 mL normal saline bolus along with the Phenergan dose. We will see how she responds to this therapy and determine if imaging is necessary after that. We may also try droperidol for suspected cannabis hyperemesis. We will allow her infusion pump to continue administering insulin. Rocephin is being given for urinary tract infection. Prior culture results were reviewed and Rocephin appears appropriate. (INDY BAXTER MD) Progress Note : Time: 17:11 Progress Note I met with, took the history of and examined the patient at shift change and agree with the documented history and physical exam. The patient has received Zofran, Phenergan, fluids 1500 cc and fentanyl for pain. She is still describing some pain and nausea. She denies being told she has a history of cannabis hyperemesis. She does have a history of significant gastroparesis related to diabetes. She does not recall if she has had droperidol before but we will check an EKG and if the QTC is okay we will give her some droperidol and 25 mg Benadryl IV and reexamine. Labs unremarkable. Urinalysis shows a UTI and she has been given a dose of Rocephin. (RED LIN) Initial ECG Impression Date: Jun 20, 2022 Initial ECG Impression Time: 17:05 Initial ECG Rate: 54 Initial ECG Rhythm: Normal Sinus Initial ECG Intervals: QT (449) Initial ECG Impression: Normal Comment Normal sinus rhythm without clinically relevant ST elevation or depression. QTc female 449 ms. (RED LIN) Departure Communication (Admissions) Time/Spoke to Admitting Phy: 18:[address] Martell who agrees to observe the patient overnight with nausea medications and fluids. He will put in queued orders. (RED LIN) Impression Primary Impression: Right sided abdominal pain Additional Impressions: Nausea & vomiting Qualified Codes: R11.2 - Nausea with vomiting, unspecified Diabetic gastroparesis associated with type 1 diabetes mellitus Disposition: 30 STILL A PATIENT Condition: Stable Admissions Decision to Admit Reason: Admit from ER (General) Decision to Admit/Date: Jun 20, 2022 Time/Decision to Admit Time: 18:45 (RED LIN) Departure-Patient Inst. Referrals: NANCY BAH DO (PCP) Primary Care Physician INDY BAXTER MD Jun 20, 2022 15:50 RED LIN Jun 20, 2022 17:12
[2022-06-20] MEDS ORDERED: KETOROLAC 30 MG/ML VIAL IVP ONE (16:00)
[2022-06-20] MEDS ORDERED: DROPERIDOL 5 MG/2 ML (INAPSINE) ED ONLY! IV ONE (17:00)
[2022-06-20] MEDS ORDERED: diphenhydrAMINE 50 MG/ML INJ (BENADRYL) IVP ONE (17:00)
[2022-06-20] MEDS ORDERED: fentaNYL INJ 100 MCG/2 ML AMP IVP ONE (19:00)
[2022-06-20] MEDS ORDERED: polyethylene glycoL POWDER 17 GM (MIRALAX) PACK PO PRN (21:45)
[2022-06-20] MEDS ORDERED: ACETAMINOPHEN 325 MG TABLET PO PRN (21:45)
[2022-06-20] MEDS ORDERED: ONDANSETRON 4 MG (ZOFRAN) ORAL DISSOLVE TAB PO PRN (21:45)
[2022-06-20] MEDS ORDERED: diphenhydrAMINE 25 MG TAB (BENADRYL) PO PRN (21:45)
[2022-06-20] MEDS ORDERED: BISACODYL 10 MG SUPP (DULCOLAX) PR PRN (21:45)
[2022-06-20] MEDS ORDERED: ANTACID SUSP 30 ML UDC (MYLANTA) PO PRN (21:45)
[2022-06-20] MEDS ORDERED: MELATONIN 3 MG TABLET PO PRN (21:45)
[2022-06-20] MEDS ORDERED: diphenhydrAMINE 50 MG/ML INJ (BENADRYL) IVP PRN (21:45)
[2022-06-20] MEDS: LACTATED RINGERS 1,000 ML IV SCH (22:02)
[2022-06-20] MEDS: PROMETHAZINE INJ 25 MG/ML (PHENERGAN) AMP IVP PRN (22:02)
[2022-06-20 23:11] VITALS: BP 163/95
[2022-06-21] MEDS: morphine INJ 4 MG/ML 1 ML (VIAL/SYRINGE) IVP PRN ×7 (00:25→23:32)
[2022-06-21] MEDS: ONDANSETRON 4 MG/2 ML (SDV) Z0FRAN IV PRN ×4 (03:26→23:13)
[2022-06-21] MEDS: PROMETHAZINE INJ 25 MG/ML (PHENERGAN) AMP IVP PRN ×3 (03:26→23:13)
[2022-06-21 03:28] VITALS: BP 166/77
[2022-06-21] MEDS: LACTATED RINGERS 1,000 ML IV SCH ×2 (07:55→17:57)
[2022-06-21] MEDS: DOCUSATE SODIUM 100 MG (COLACE) CAP PO SCH ×2 (07:56→19:30)
[2022-06-21] MEDS: PHENAZOPYRIDINE 100 MG (PYRIDIUM) TABLET PO SCH ×3 (07:56→18:33)
[2022-06-21 08:00] VITALS: BP 144/85
[2022-06-21] MEDS ORDERED: GABAPENTIN 100 MG (NEURONTIN) CAP PO SCH (09:00)
[2022-06-21] MEDS ORDERED: IOHEXOL 350 MG/ML 100 ML (OMNIPAQUE 350) VIAL IV ONE (10:15)
[2022-06-21] MEDS ORDERED: HOLD METFORMIN - RECEIVED CONTRAST 20 ML VIAL IV SCH (10:15)
[2022-06-21] MEDS ORDERED: NS 100 ML (IVPB) BAG IV ONE (10:15)
[2022-06-21] MEDS ORDERED: CATHETER FLUSH 10 ML SYR IV PRN (10:15)
[2022-06-21] MEDS: PROCHLORPERAZINE 10 MG/2ML INJ (COMPAZINE) IV PRN ×2 (10:23→19:31)
[2022-06-21 11:29] VITALS: BP 135/86
[2022-06-21 11:57] LABS: ALBUMIN 3.8 GM/DL (3.2-4.5); BILIRUBIN,TOTAL 0.8 MG/DL (0.1-1.0); CALCIUM 9.1 MG/DL (8.5-10.1); CREATININE SERUM 0.83 MG/DL (0.60-1.30); POTASSIUM 3.8 MMOL/L (3.6-5.0); TOTAL PROTEIN 6.4 GM/DL (6.4-8.2)
--- NOTE | 2022-06-21 14:43 | Diagnostic Imaging Report ---
PROCEDURE: CT abdomen and pelvis with contrast. TECHNIQUE: Multiple contiguous axial images were obtained through the abdomen and pelvis after administration of intravenous contrast. Auto Exposure Controls were utilized during the CT exam to meet ALARA standards for radiation dose reduction. All CT scans use one or more of the following dose optimizing techniques: Automated exposure control, MA and/or KvP adjustment based on patient size and exam type or iterative reconstruction. INDICATION: Abdominal pain with dehydration and diabetes. COMPARISON: Comparison is made with prior CT from 04/26/2022. FINDINGS: Lung bases are clear of acute infiltrates. No discrete liver mass is detected. Gallbladder is surgically absent. Common duct stent is again noted and has been repositioned since prior CT. The degree of ductal dilatation has significantly improved since the prior exam. Small amount pneumobilia is noted. Pancreas appears atrophic. Spleen is unremarkable. No adrenal mass is detected. Kidneys are unremarkable. Aorta is nonaneurysmal. Bowel loops appear to be normal in caliber. No obstruction is seen. There is a small amount of free fluid present. There is moderate stool in the colon. Bladder is unremarkable. Uterus appears to be surgically absent. IMPRESSION: The common duct stent appears to be repositioned since prior CT. There is an overall improvement in the degree of common duct dilatation. No acute feature in the abdomen or pelvis is identified. Dictated by: Dictated on workstation # [id number]
[2022-06-21 16:00] VITALS: BP 147/84
[2022-06-21] MEDS: GABAPENTIN 600 MG (NEURONTIN) TAB PO SCH (19:31)
[2022-06-21 19:45] VITALS: BP 147/91
--- NOTE | 2022-06-21 21:49 | History & Physical-Hospitalist ---
History of Present Illness HPI/Chief Complaint Sarah Oden is a 41 year old female with insulin-dependent diabetes mellitus, gastroparesis, diabetic neuropathy, cannabis abuse, who presented with intractable nausea and vomiting. She has also had right upper quadrant abdominal pain. She denies diarrhea. She denies fever and chills. She denies chest pain. She denies shortness of breath. She occasionally smokes marijuana. She says she only smokes it when she feels good. She has noticed that it makes her nausea and vomiting worse. Source: patient Exam Limitations: no limitations Date Seen 06/21/22 Time Seen by a Provider: 09:55 Attending Physician David Prabhakar DO PCP Admitting Physician: Alli Pretty MD Attending Physician: Alli Pretty MD Referring Physician Date of Admission Jun 20, 2022 at 21:09 Home Medications & Allergies Home Medications Reviewed patient Home Medication Reconciliation performed by pharmacy medication reconciliations elevator technician and/or nursing. Patients Allergies have been reviewed. Allergies Allergies Coded Allergies Penicillins (Verified Allergy, Unknown, 03/18/22) azithromycin (Verified Allergy, Unknown, 03/18/22) cephalexin (Verified Allergy, Unknown, 03/18/22) meperidine (Verified Allergy, Unknown, 03/18/22) metoclopramide (Verified Allergy, Unknown, 03/18/22) Past Qimqujr-Jvukru-Muuvpj Hx Patient Social History Tobacco Use?: Yes Tobacco type used: Cigarettes Smoking Status: Heavy Tobacco Smoker Smokeless Tobacco Frequency: Never a User Use of E-Cig and/or Vaping dev: No Use of E-Cig and/or Vaping Singh: Never a User Substance use?: Yes Substance type: Marijuana Substance frequency: Couple times a week Alcohol Use?: No Pt feels they are or have been: No Immunizations Up To Date First/Initial COVID19 Vaccinat: none Current Status status: No status: No Advance Directives: No Advance Directive Location: Home Communicates: Verbally Primary Language: Greenlandic Preferred Spoken Language: Green[place]ic Is interpretation needed?: No Implanted or Applied Medical D: Insulin pump Past Medical History Surgeries: Abdominal (Gastric stimulator placement and removal), Gallbladder, Hysterectomy, Orthopedic High Cholesterol, Hypertension Diabetes, Insulin dep Family Medical History No Pertinent Family Hx Review of Systems Constitutional: no symptoms reported EENTM: no symptoms reported Respiratory: no symptoms reported Cardiovascular: no symptoms reported Gastrointestinal: abdominal pain, nausea, vomiting Physical Exam Physical Exam Vital Signs Vital Signs - First Documented 06/20/22 06/20/22 14:02 19:46 Temp 36.2 Pulse 62 Resp 15 B/P (MAP) 179/79 (112) Pulse Ox 97 O2 Delivery Room Air Capillary Refill : Less Than 3 Seconds Height, Weight, BMI Height: '" Weight: lbs. oz. kg; 24.02 BMI Method: General Appearance: WD/WN, Mild Distress HEENT: PERRL/EOMI, Pharynx Normal Neck: Normal Inspection, Supple Respiratory: Lungs Clear, No Respiratory Distress Cardiovascular: Regular Rate, Rhythm, No Murmur Gastrointestinal: Normal Bowel Sounds, Soft; No Distended, No Guarding; Tenderness Extremity: Normal Inspection, No Pedal Edema Neurologic/Psychiatric: Alert, Normal Mood/Affect Skin: Normal Color, Warm/Dry Results Results/Procedures Labs Laboratory Tests 06/20/22 14:45 06/21/22 11:00 Patient resulted labs reviewed. Imaging: Reviewed Imaging Report Assessment/Plan Admission Diagnosis Intractable nausea and vomiting Admission Status: Observation Assessment and Plan Intractable nausea and vomiting Abdominal pain Diabetic gastroparesis Insulin dependent diabetes mellitus Cannabis abuse Antiemetics Pain regimen Obtain CT Abdomen Insulin pump Diagnosis/Problems Diagnosis/Problems (1) Intractable nausea and vomiting Status: Acute (2) Diabetic gastroparesis associated with type 1 diabetes mellitus Status: Acute (3) Abdominal pain Status: Acute Qualifiers: Abdominal location: unspecified location Qualified Codes: R10.9 - Unspecified abdominal pain (4) Cannabis abuse Status: Acute ALLI PRETTY MD Jun 21, 2022 21:23
[2022-06-21 23:12] VITALS: BP 147/86
[2022-06-22 04:00] VITALS: BP 146/86
[2022-06-22] MEDS: PROCHLORPERAZINE 10 MG/2ML INJ (COMPAZINE) IV PRN (04:04)
[2022-06-22] MEDS: LACTATED RINGERS 1,000 ML IV SCH (04:04)
[2022-06-22] MEDS: morphine INJ 4 MG/ML 1 ML (VIAL/SYRINGE) IVP PRN (04:04)
[2022-06-22 08:20] VITALS: BP 169/96
[2022-06-22] MEDS: GABAPENTIN 600 MG (NEURONTIN) TAB PO SCH (08:30)
[2022-06-22] MEDS: PHENAZOPYRIDINE 100 MG (PYRIDIUM) TABLET PO SCH (08:30)
[2022-06-22] MEDS: DOCUSATE SODIUM 100 MG (COLACE) CAP PO SCH (08:30)
[2022-06-22] MEDS: PROMETHAZINE INJ 25 MG/ML (PHENERGAN) AMP IVP PRN (08:30)
[2022-06-22] MEDS ORDERED: NITROFURANTOIN 100 MG (MACROBID) CAPSULE PO SCH (09:00)
[2022-06-22] MEDS ORDERED: PROM25TA14 PO (10:26)
[2022-06-22] MEDS ORDERED: NITR100C10 PO (10:26)
[2022-06-22 11:48] VITALS: BP 155/88
--- NOTE | 2022-06-24 08:20 | Discharge Summary ---
Discharge Summary Hospital Course Problems/Dx: (1) Intractable nausea and vomiting Status: Acute (2) Diabetic gastroparesis associated with type 1 diabetes mellitus Status: Acute (3) Abdominal pain Status: Acute Qualifiers: Qualified Codes: R10.9 - Unspecified abdominal pain (4) Cannabis abuse Status: Acute Hospital Course Date of Admission: Jun 20, 2022 at 21:19 Admission Diagnosis : Intractable nausea and vomiting Family Physician/Provider: David Prabhakar DO Date of Discharge: 06/24/22 Discharge Diagnosis: Diabetic gastroparesis, cannabis hyperemesis syndrome Hospital Course: Sarah Oden is a 41 year old female with insulin dependent diabetes mellitus, diabetic gastroparesis, cannabis abuse, who presented with intractable nausea and vomiting. She also had abdominal pain. An abdominal CT was unrevealing for a cause of her pain. She has a bile duct stent which was well-appearing. She has a history of diabetic gastroparesis. She has been unable to tolerate medications for this. She also had complications from a gastric stimulator which has since been removed. She also smokes marijuana. She was treated with IV antiemetics and fluids and improved. She was found to have a UTI and was given a course of Macrobid. She was discharged home in stable condition. She was instructed to stop marijuana use completely. She should follow up with her PCP in about a week. Labs and Pending Lab Test: Microbiology 06/20/22 Urine Culture - Final, Complete Escherichia coli Home Meds Active Nitrofurantoin [place]-Mcr 100 mg (Nitrofurantoin Monohyd/M-Cryst) 100 Mg Capsule 100 Mg PO BID 5 Days Promethazine Tablet (Promethazine HCl) 25 Mg Tablet 25 Mg PO TID PRN 30 Days Reported Gabapentin 600 Mg Tablet 600 Mg PO BID LAST FILLED 10-20-2021 #90/30 DAY SUPPLY Miralax (Polyethylene Glycol 3350) 17 Gram Powd.pack 17 Gm PO BID PRN Novolog (Insulin Aspart) 100 Unit/Ml Susp Units SC UD USES PER PUMP Ibuprofen 200 Mg Tablet 400 Mg PO Q8H PRN TAKES 2 (200MG) TAB Tylenol Extra Strength (Acetaminophen) 500 Mg Tablet 1,000 Mg PO Q8H PRN TAKES 2 (500MG) TAB Estradiol Tablet (Estradiol) 1 Mg Tablet 1 Mg PO DAILY LAST FILLED 12-01-2021 #30/30 DAY SUPPLY Baqsimi (Glucagon) 3 Mg/Actuation [place] 1 [place] NS UD PRN Atorvastatin Calcium 20 Mg Tablet 20 Mg PO DAILY Buprenorphine-Nalox 8-2Mg Film (Buprenorphine HCl/Naloxone HCl) 8 Mg-2 Mg Film 1 Each PO BID Ondansetron Odt (Ondansetron) 4 Mg Tab.rapdis 4 Mg PO TID PRN Assessment/Pt Instructions See instructions Discharge Planning: >30 minutes discharge planning Discharge Instructions Discharge Diet: Eat Small Frequent Meals Activity as Tolerated: Yes Discharge Physical Examination Vital Signs Vital Signs Date Time Temp Pulse Resp B/P (MAP) Pulse Ox O2 Delivery O2 Flow Rate FiO2 06/22/22 12:13 06/22/22 11:48 36.9 83 18 96 Room Air General Appearance: No Apparent Distress, WD/WN Respiratory: Lungs Clear, No Respiratory Distress Cardiovascular: Regular Rate, Rhythm, No Murmur Gastrointestinal: Normal Bowel Sounds, Soft Extremity: Normal Inspection, No Pedal Edema Skin: Normal Color, Warm/Dry Neurologic/Psychiatric: Alert, Normal Mood/Affect Allergies: Coded Allergies: Penicillins (Verified Allergy, Unknown, 03/18/22) azithromycin (Verified Allergy, Unknown, 03/18/22) cephalexin (Verified Allergy, Unknown, 03/18/22) meperidine (Verified Allergy, Unknown, 03/18/22) metoclopramide (Verified Allergy, Unknown, 03/18/22) Copy Copies To 1: DAVID PRABHAKAR DO Discharge Summary Date of Admission Jun 20, 2022 at 21:19 Date of Discharge Jun 22, 2022 at 10:25 Discharge Date: Jun 22, 2022 Discharge Time: 10:25 Admission Diagnosis Intractable nausea and vomiting Discharge Diagnosis Intractable nausea and vomiting Abdominal pain Diabetic gastroparesis Insulin dependent diabetes mellitus Cannabis hyperemesis syndrome UTI (1) Intractable nausea and vomiting Status: Acute (2) Diabetic gastroparesis associated with type 1 diabetes mellitus Status: Acute (3) Abdominal pain Status: Acute Qualifiers: Qualified Codes: R10.9 - Unspecified abdominal pain (4) Cannabis abuse Status: Acute (5) E. coli UTI Status: Acute ALLI PRETTY MD Jun 24, 2022 08:18
== END 2022-06-22 10:25 | disposition home or self-care (01) ==
LOC: EDUNIT# 13:47 → ER FS 13:48 → UNDOADMOB 21:09 → 4TH 21:09 → UNDODISOB 06-22 10:25
PROVIDERS: ADMIT Internal Medicine; ATTEND Internal Medicine
DX: E10.43 Type 1 diabetes mellitus with diabetic autonomic (poly)neuropathy (principal); F12.19 Cannabis abuse with unspecified cannabis-induced disorder; F17.210 Nicotine dependence, cigarettes, uncomplicated; Z79.4 Long term (current) use of insulin
CPT/HCPCS: 36415; 74177; 80053 ×2; 80306; 81000; 82947 ×3; 83690; 84703; 85025; 86141; 87077; 87088; 87186; 93005; 96375; 96376 ×3; 99284; G0378

== ENCOUNTER 2022-06-29 14:27 | Emergency (ER) | payer MEDICARE, MEDICAID ==
[~2022-06-29] VITALS: Ht 63 cm; Wt 102.9 kg
[~2022-06-29 14:27] MED LIST changes: +NITR100C10 PO
[2022-06-29] MEDS ORDERED: HALOPERIDOL 5 MG/ML (HALDOL) VIAL IM ONE (15:00)
[2022-06-29 15:26] LABS: BASOPHILS # (AUTO) 0.1 10^3/uL (0.0-0.1); BASOPHILS % (AUTO) 1 % (0-10); EOSINOPHILS # (AUTO) 0.4 10^3/uL (0.0-0.3); EOSINOPHILS % (AUTO) 3 % (0-10); HEMATOCRIT 38 % (35-52); HEMOGLOBIN 12.2 g/dL (11.5-16.0); LYMPHOCYTES % (AUTO) 17 % (12-44); MEAN CORPUSCULAR HEMOGLOBIN 26 pg (25-34); MEAN CORPUSCULAR HGB CONC 32 g/dL (32-36); MEAN CORPUSCULAR VOLUME 81 fL (80-99); MONOCYTES # (AUTO) 0.6 10^3/uL (0.0-1.0); MONOCYTES % (AUTO) 5 % (0-12); NEUTROPHILS # (AUTO) 8.5 10^3/uL (1.8-7.8); NEUTROPHILS % (AUTO) 73 % (42-75); PLATELET COUNT 220 10^3/uL (130-400); WHITE BLOOD COUNT 11.5 10^3/uL (4.3-11.0)
[2022-06-29 15:34] LABS: BILIRUBIN,URINE NEGATIVE (NEGATIVE); CLARITY,URINE CLEAR; COLOR,URINE YELLOW; GLUCOSE, URINE (UA) 3+ (NEGATIVE); KETONES,URINE NEGATIVE (NEGATIVE); LEUKOCYTE ESTERASE ,URINE NEGATIVE (NEGATIVE); NITRITE,URINE NEGATIVE (NEGATIVE); PROTEIN,URINE NEGATIVE (NEGATIVE)
[2022-06-29 15:39] LABS: BUN/CREATININE RATIO 20; CALCIUM 9.6 MG/DL (8.5-10.1); CARBON DIOXIDE 26 MMOL/L (21-32); CHLORIDE 101 MMOL/L (98-107); CREATININE SERUM 0.74 MG/DL (0.60-1.30); GFR ESTIMATED 103; GLUCOSE 293 MG/DL (70-105); POTASSIUM 4.1 MMOL/L (3.6-5.0); SODIUM 139 MMOL/L (135-145)
[2022-06-29 15:40] LABS: ALANINE AMINOTRANSFERASE 20 U/L (0-55); ALBUMIN 4.5 GM/DL (3.2-4.5); ALKALINE PHOSPHATASE 128 U/L (40-136); BILIRUBIN,TOTAL 0.4 MG/DL (0.1-1.0)
[2022-06-29 15:41] LABS: BACTERIA,URINE NEGATIVE /HPF; RBC,URINE 0-2 /HPF; WBC,URINE 0-2 /HPF
[2022-06-29 15:47] LABS: AMPHETAMINE SCREEN, URINE NEGATIVE (NEGATIVE); BARBITURATE SCREEN URINE NEGATIVE (NEGATIVE); BENZODIAZEPINES SCREEN URINE NEGATIVE (NEGATIVE); CANNABINOID SCREEN, URINE POSITIVE (NEGATIVE); COCAINE SCREEN URINE NEGATIVE (NEGATIVE); METHADONE STAT NEGATIVE (NEGATIVE); OPIATE SCREEN URINE NEGATIVE (NEGATIVE); OXYCODONE STAT NEGATIVE (NEGATIVE); PROPOXYPHENE STAT NEGATIVE (NEGATIVE); TRICYCLIC ANTIDEPRESSANTS SCRE NEGATIVE (NEGATIVE)
[2022-06-29 16:07] VITALS: BP 146/92
--- NOTE | 2022-06-29 16:15 | ED Abdominal Pain ---
General Chief Complaint: Abdominal/GI Problems Stated Complaint: VOMITING Nursing Triage Note: PT AMBULATE TO ROOM [facility] WITHOUT DIFFICULTY WITH C/O N/V STARTING LAST NIGHT. Source of Information: Patient Exam Limitations: No Limitations History of Present Illness Date Seen by Provider: Jun 29, 2022 Time Seen by Provider: 15:15 Initial Comments Patient is a 41-year-old female with history of insulin-dependent diabetes, CBD stent, chronic abdominal pain, cyclic vomiting syndrome who lives in the [facility] who presents with exacerbation of her chronic abdominal pain starting last night. Patient reports diffuse upper abdominal pain nausea with decreased oral intake. Patient took Zofran and Pepcid at home without improvement. She denies fever chills, sweats chest pain palpitations, shortness of breath. No hematemesis coffee-ground emesis, hematuria dysuria. No other acute symptoms or complaints. Timing/Duration: 1-3 Hours Severity/Quality: Moderate Location: Other Radiation: Other Activities at Onset: Other Modifying Factors: Improves With Other Associated Symptoms: Other Allergies and Home Medications Allergies Coded Allergies: Penicillins (Verified Allergy, Unknown, 03/18/22) azithromycin (Verified Allergy, Unknown, 03/18/22) cephalexin (Verified Allergy, Unknown, 03/18/22) meperidine (Verified Allergy, Unknown, 03/18/22) metoclopramide (Verified Allergy, Unknown, 03/18/22) Patient Home Medication List Home Medication List Reviewed: No Acetaminophen (Tylenol Extra Strength) 500 Mg Tablet, 1,000 MG PO Q8H PRN for PAIN-MILD (1-4), (Reported) Entered as Reported by: ALFRED WALLACE on 03/24/22 0951 Atorvastatin Calcium (Atorvastatin Calcium) 20 Mg Tablet, 20 MG PO DAILY, (Reported) Entered as Reported by: ALFRED WALLACE on 03/24/22 0948 Buprenorphine HCl/Naloxone HCl (Buprenorphine-Nalox 8-2Mg Film) 8 Mg-2 Mg Film, 1 EACH PO BID, (Reported) Entered as Reported by: ALFRED WALLACE on 03/24/22 0948 Estradiol (Estradiol Tablet) 1 Mg Tablet, 1 MG PO DAILY, (Reported) Entered as Reported by: ALFRED WALLACE on 03/24/22 0948 Gabapentin (Gabapentin) 600 Mg Tablet, 600 MG PO BID, (Reported) Entered as Reported by: ALFRED WALLACE on 03/24/22 1008 Glucagon (Baqsimi) 3 Mg/Actuation [place], 1 SPRAY NS UD PRN for HYPOGLYCEMIA, (Reported) Entered as Reported by: ALFRED WALLACE on 03/24/22 0948 Ibuprofen (Ibuprofen) 200 Mg Tablet, 400 MG PO Q8H PRN for PAIN-MILD (1-4), (Reported) Entered as Reported by: ALFRED WALLACE on 03/24/22 0952 Insulin Aspart (Novolog) 100 Unit/Ml Susp, UNITS SC UD, (Reported) Entered as Reported by: ALFRED WALLACE on 03/24/22 0957 Nitrofurantoin Monohyd/M-Cryst (Nitrofurantoin [place]-Mcr 100 mg) 100 Mg Capsule, 100 MG PO BID Prescribed by: ALLI PRETTY on 06/22/22 1026 Ondansetron (Ondansetron Odt) 4 Mg Tab.rapdis, 4 MG PO TID PRN for NAUSE A/VOMITING, (Reported) Entered as Reported by: ALFRED WALLACE on 03/24/22 0948 Polyethylene Glycol 3350 (Miralax) 17 Gram Powd.pack, 17 GM PO BID PRN for CONSTIPATION-2ND LINE, (Reported) Entered as Reported by: ALFRED WALLACE on 03/24/22 1002 Promethazine HCl (Promethazine Tablet) 25 Mg Tablet, 25 MG PO TID PRN for NAUSEA/VOMITING Prescribed by: ALLI PRETTY on 06/22/22 1026 Review of Systems Review of Systems Constitutional: see HPI EENTM: See HPI Respiratory: See HPI Cardiovascular: See HPI Gastrointestinal: See HPI Genitourinary: See HPI Musculoskeletal: see HPI Skin: see HPI Psychiatric/Neurological: See HPI Endocrine: See HPI Hematologic/Lymphatic: See HPI All Other Systems Reviewed Negative Unless Noted: No Past Ckpyjiy-Xcwrea-Rsgywm Hx Patient Social History Tobacco Use?: Yes Tobacco type used: Cigarettes Smoking Status: Heavy Tobacco Smoker Smokeless Tobacco Frequency: Never a User Use of E-Cig and/or Vaping dev: No Use of E-Cig and/or Vaping Singh: Never a User Substance use?: Yes Substance type: Marijuana Substance frequency: Daily Alcohol Use?: No Pt feels they are or have been: No Immunizations Up To Date First/Initial COVID19 Vaccinat: none Past Medical History Surgery/Hospitalization HX: left upper arm nerve repain, gastric stimulator, insulin pump Surgeries: Yes Abdominal, Gallbladder, Hysterectomy, Orthopedic Respiratory: No Cardiac: Yes High Cholesterol, Hypertension Neurological: No Diabetes, Insulin dep Cancer: No Psychosocial: No Integumentary: No Family Medical History No Pertinent Family Hx Physical Exam Vital Signs Vital Signs - First Documented 06/29/22 14:39 Temp 35.6 Pulse 79 Resp 17 B/P (MAP) 134/78 (96) O2 Delivery Room Air Capillary Refill : Less Than 3 Seconds Height/Weight/BMI Height: '" Weight: lbs. oz. kg; 259.00 BMI Method: General Appearance: WD/WN, no apparent distress HEENT: PERRL/EOMI Neck: non-tender, full range of motion Respiratory: chest non-tender, lungs clear, normal breath sounds Cardiovascular: regular rate, rhythm Gastrointestinal: soft, other (Mild epigastric pain/tenderness.) Extremities: normal range of motion, non-tender, normal inspection Back: normal inspection Neurologic/Psychiatric: alert, oriented x 3, other (Anxious) Focused Exam Sepsis Stage: Ruled Out Progress/Results/Core Measures Results/Orders Lab Results Laboratory Tests Test 06/29/22 15:00 06/29/22 15:08 06/29/22 15:29 Range/Units White Blood Count 11.5 H 4.3-11.0 10^3/uL Red Blood Count 4.68 3.80-5.11 10^6/uL Hemoglobin 12.2 11.5-16.0 g/dL Hematocrit 38 35-52 % Mean Corpuscular Volume 81 80-99 fL Mean Corpuscular Hemoglobin 26 25-34 pg Mean Corpuscular Hemoglobin Concent 32 32-36 g/dL Red Cell Distribution Width 17.6 H 10.0-14.5 % Platelet Count 220 130-400 10^3/uL Mean Platelet Volume 11.0 9.0-12.2 fL Immature Granulocyte % (Auto) 0 % Neutrophils (%) (Auto) 73 42-75 % Lymphocytes (%) (Auto) 17 12-44 % Monocytes (%) (Auto) 5 0-12 % Eosinophils (%) (Auto) 3 0-10 % Basophils (%) (Auto) 1 0-10 % Neutrophils # (Auto) 8.5 H 1.8-7.8 10^3/uL Lymphocytes # (Auto) 2.0 1.0-4.0 10^3/uL Monocytes # (Auto) 0.6 0.0-1.0 10^3/uL Eosinophils # (Auto) 0.4 H 0.0-0.3 10^3/uL Basophils # (Auto) 0.1 0.0-0.1 10^3/uL Immature Granulocyte # (Auto) 0.0 0.0-0.1 10^3/uL Sodium Level 139 135-145 MMOL/L Potassium Level 4.1 3.6-5.0 MMOL/L Chloride Level 101 98-107 MMOL/L Carbon Dioxide Level 26 21-32 MMOL/L Anion Gap 12 5-14 MMOL/L Blood Urea Nitrogen 15 7-18 MG/DL Creatinine 0.74 0.60-1.30 MG/DL Estimat Glomerular Filtration Rate 103 BUN/Creatinine Ratio 20 Glucose Level 293 H 70-105 MG/DL Calcium Level 9.6 8.5-10.1 MG/DL Corrected Calcium 9.2 8.5-10.1 MG/DL Total Bilirubin 0.4 0.1-1.0 MG/DL Aspartate Amino Transf (AST/SGOT) 21 5-34 U/L Alanine Aminotransferase (ALT/SGPT) 20 0-55 U/L Alkaline Phosphatase 128 40-136 U/L C-Reactive Protein < 0.30 <0.50 MG/DL Total Protein 7.0 6.4-8.2 GM/DL Albumin 4.5 3.2-4.5 GM/DL Glucometer 252 H 70-110 MG/DL Urine Color YELLOW Urine Clarity CLEAR Urine pH 7.0 5-9 Urine Specific [place] 1.015 L 1.016-1.022 Urine Protein NEGATIVE NEGATIVE Urine Glucose (UA) 3+ H NEGATIVE Urine Ketones NEGATIVE NEGATIVE Urine Nitrite NEGATIVE NEGATIVE Urine Bilirubin NEGATIVE NEGATIVE Urine Urobilinogen 0.2 < = 1.0 MG/DL Urine Leukocyte Esterase NEGATIVE NEGATIVE Urine RBC (Auto) NEGATIVE NEGATIVE Urine RBC 0-2 /HPF Urine WBC 0-2 /HPF Urine Squamous Epithelial Cells 2-5 /HPF Urine Crystals NONE /LPF Urine Bacteria NEGATIVE /HPF Urine Casts NONE /LPF Urine Mucus MODERATE H /LPF Urine Culture Indicated NO Urine Opiates Screen NEGATIVE NEGATIVE Urine Oxycodone Screen NEGATIVE NEGATIVE Urine Methadone Screen NEGATIVE NEGATIVE Urine Propoxyphene Screen NEGATIVE NEGATIVE Urine Barbiturates Screen NEGATIVE NEGATIVE Ur Tricyclic Antidepressants Screen NEGATIVE NEGATIVE Urine Phencyclidine Screen NEGATIVE NEGATIVE Urine Amphetamines Screen NEGATIVE NEGATIVE Urine Methamphetamines Screen NEGATIVE NEGATIVE Urine Benzodiazepines Screen NEGATIVE NEGATIVE Urine Cocaine Screen NEGATIVE NEGATIVE Urine Cannabinoids Screen POSITIVE H NEGATIVE My Orders Orders - RYAN HEATON DO Cbc With Automated Diff (06/29/22 14:51) Comprehensive Metabolic Panel (06/29/22 14:51) Urinalysis (06/29/22 14:51) Drug Screen Stat (Urine) (06/29/22 14:51) Accucheck Fasting (06/29/22 14:51) Haloperidol Injection (Haldol Injectio (06/29/22 15:00) Crp Fs (06/29/22 14:52) Medications Given in ED Current Medications Medications Dose Ordered Sig/Joelle Route Start Time Stop Time Status Last Admin Dose Admin Haloperidol Lactate 10 mg ONCE ONCE IM 06/29/22 15:00 06/29/22 15:01 DC 06/29/22 15:06 10 MG Vital Signs/I&O 06/29/22 14:39 Temp 35.6 Pulse 79 Resp 17 B/P (MAP) 134/78 (96) O2 Delivery Room Air Blood Pressure Mean: 96 FSBG Bedside Testing Finger Stick Blood Glucose: 248 Blood Glucose Action Taken: PROVIDER NOTIFIED Departure Communication (Admissions) Acute exacerbation of chronic abdominal pain etiology unclear. Patient has risk for gastritis related to DKA, gastroparesis, cyclic vomiting syndrome and obstructed CBD. Lab work reviewed and reassuring. Ketones negative. No vomiting in the emergency department. Compazine given with clinical improvement. Recent CT abdomen/pelvis reviewed and reassuring. Recommendations are following up with patient's local PCP and GI specialist for further management. Return precautions reviewed. Patient instructed to return to the closest ER for new or worsening symptoms period. Impression Primary Impression: Nausea alone Additional Impressions: Chronic abdominal pain Insulin dependent diabetes mellitus Cannabis use disorder Disposition: 01 HOME, SELF-CARE Condition: Stable Departure-Patient Inst. Decision time for Depature: 16:15 Referrals: NANCY BAH DO (PCP/Family) Primary Care Physician Patient Instructions: Nausea and Vomiting, Adult ED Add. Discharge Instructions: You were evaluated in the emergency department for abdominal pain and nausea. Labs were reviewed and are nondiagnostic. The exact cause of your symptoms has not been determined. Please continue home nausea medication follow-up with your PCP and/or local GI specialist for further symptom inpatient management. Return to the closest emergency department if you develop new or worsening symptoms. All discharge instructions reviewed with patient and/or family. Voiced understanding. RYAN HEATON DO Jun 29, 2022 16:15
== END 2022-06-29 16:07 | disposition home or self-care (01) ==
LOC: EDUNIT# 14:27 → ER FS 14:28
DX: R11.0 Nausea (principal); G89.29 Other chronic pain; R10.13 Epigastric pain; F12.90 Cannabis use, unspecified, uncomplicated; E11.9 Type 2 diabetes mellitus without complications; F17.210 Nicotine dependence, cigarettes, uncomplicated; Z79.4 Long term (current) use of insulin; Z28.310 Unvaccinated for COVID-19
CPT/HCPCS: 36415; 80053; 80306; 81000; 82947; 85025; 86141

== ENCOUNTER → 2022-07-27 | Outpatient (CLI) | payer MEDICARE, MEDICAID ==
--- NOTE | 2022-07-27 12:52 | Diagnostic Imaging Report ---
PROCEDURE: MR imaging abdomen without contrast. TECHNIQUE: Multiplanar, multisequence MR imaging of the abdomen was performed without contrast. INDICATION: Abdominal pain. COMPARISON: Exam is correlated with a CT abdomen and pelvis 06/21/2022. FINDINGS: A biliary stent is present. No pathological dilatation of the bile ducts. There is some incidental fatty intensification of the left lobe of the liver adjacent to the fissure for the ligament of teres, and there is a tiny T1 hypointense and uniformly T2 hyperintense nodule in the periphery of the right hepatic lobe posteriorly most consistent with a tiny cyst measuring 8 mm. No soft tissue intensity liver mass. No suspicious hepatic signal abnormality. The gallbladder is surgically absent. No perihepatic fluid collection. No subcapsular collection. There was no solid or cystic renal mass. There is no hydroureteronephrosis. The adrenals and spleen are negative. Pancreas appeared nonacute. No pancreatic ductal abnormality. There is no abdominal ascites. No acute fluid collection. The abdominal bowel loops are nondilated and nonobstructed. The spleen is unremarkable. There is no abdominal lymphadenopathy. IMPRESSION: Biliary stent present. Absent gallbladder. No pathological ductal dilatation or suspicious intraductal filling defect. T2 hyperintense subcentimeter nodule in the posterior right hepatic lobe is favored to be a tiny cyst. No suspicious liver lesion. No ascites. Nonfocal unobstructed kidneys. No adenopathy. No acute pancreatic pathology. Dictated by: Dictated on workstation # [id number]
== END ==
LOC: RAD 09:53
PROVIDERS: ATTEND Nurse Practitioner Family
DX: Q61.9 Cystic kidney disease, unspecified (principal); K76.89 Other specified diseases of liver; Z96.89 Presence of other specified functional implants
CPT/HCPCS: 74181

== ENCOUNTER 2022-09-08 13:25 | Emergency (ER) | payer MEDICARE, MEDICAID ==
[~2022-09-08] VITALS: Ht 157.4 cm; Wt 66.4 kg
--- NOTE | 2022-09-08 13:36 | ED GI ---
General Chief Complaint: Abdominal/GI Problems Stated Complaint: ABD PAIN History of Present Illness Date Seen by Provider: Sep 08, 2022 Time Seen by Provider: 13:36 Initial Comments 21-year-old female with PMH of cyclical vomiting, chronic marijuana abuse, DM1, is here with LLQ pain which began today morning, which is associated with vomiting. Pt was started on Doxycycline by her PCP yesterday, for a UTI. Pt has not been able to eat all day today. Denies diarrhea, chest pain, palpitations, fever. Allergies and Home Medications Allergies Coded Allergies: Penicillins (Verified Allergy, Unknown, 03/18/22) azithromycin (Verified Allergy, Unknown, 03/18/22) cephalexin (Verified Allergy, Unknown, 03/18/22) meperidine (Verified Allergy, Unknown, 03/18/22) metoclopramide (Verified Allergy, Unknown, 03/18/22) Patient Home Medication List Home Medication List Reviewed: Yes Acetaminophen (Tylenol Extra Strength) 500 Mg Tablet, 1,000 MG PO Q8H PRN for PAIN-MILD (1-4), (Reported) Entered as Reported by: ALFRED WALLACE on 03/24/22 0951 Atorvastatin Calcium (Atorvastatin Calcium) 20 Mg Tablet, 20 MG PO DAILY, (Reported) Entered as Reported by: ALFRED WALLACE on 03/24/22 0948 Buprenorphine HCl/Naloxone HCl (Buprenorphine-Nalox 8-2Mg Film) 8 Mg-2 Mg Film, 1 EACH PO BID, (Reported) Entered as Reported by: ALFRED WALLACE on 03/24/22 0948 Estradiol (Estradiol Tablet) 1 Mg Tablet, 1 MG PO DAILY, (Reported) Entered as Reported by: ALFRED WALLACE on 03/24/22 0948 Gabapentin (Gabapentin) 600 Mg Tablet, 600 MG PO BID, (Reported) Entered as Reported by: ALFRED WALLACE on 03/24/22 1008 Glucagon (Baqsimi) 3 Mg/Actuation [place], 1 SPRAY NS UD PRN for HYPOGLYCEMIA, (Reported) Entered as Reported by: ALFRED WALLACE on 03/24/22 0948 Ibuprofen (Ibuprofen) 200 Mg Tablet, 400 MG PO Q8H PRN for PAIN-MILD (1-4), (Reported) Entered as Reported by: ALFRED WALLACE on 03/24/22 0952 Insulin Aspart (Novolog) 100 Unit/Ml Susp, UNITS SC UD, (Reported) Entered as Reported by: ALFRED WALLACE on 03/24/22 0957 Nitrofurantoin Monohyd/M-Cryst (Nitrofurantoin [place]-Mcr 100 mg) 100 Mg Capsule, 100 MG PO BID Prescribed by: ALLI PRETTY on 06/22/22 1026 Ondansetron (Ondansetron Odt) 4 Mg Tab.rapdis, 4 MG PO TID PRN for NAUSEA/VOMITING, (Reported) Entered as Reported by: ALFRED WALLACE on 03/24/22 0948 Polyethylene Glycol 3350 (Miralax) 17 Gram Powd.pack, 17 GM PO BID PRN for CONSTIPATION-2ND LINE, (Reported) Entered as Reported by: ALFRED WALLACE on 03/24/22 1002 Promethazine HCl (Promethazine Tablet) 25 Mg Tablet, 25 MG PO TID PRN for NAUSEA/VOMITING Prescribed by: ALLI PRETTY on 06/22/22 1026 Review of Systems Review of Systems Constitutional: no symptoms reported EENTM: No Symptoms Reported Respiratory: No Symptoms Reported Cardiovascular: No Symptoms Reported Gastrointestinal: Abdominal Pain Genitourinary: No Symptoms Reported Musculoskeletal: no symptoms reported Skin: no symptoms reported Psychiatric/Neurological: No Symptoms Reported Endocrine: No Symptoms Reported Hematologic/Lymphatic: No Symptoms Reported Past Ihncgmb-Twdwjd-Jalynj Hx Immunizations Up To Date First/Initial COVID19 Vaccinat: none Past Medical History Surgery/Hospitalization HX: left upper arm nerve repain, gastric stimulator, insulin pump Surgeries: Yes Abdominal, Gallbladder, Hysterectomy, Orthopedic Respiratory: No Cardiac: Yes High Cholesterol, Hypertension Neurological: No Diabetes, Insulin dep Cancer: No Psychosocial: No Integumentary: No Family Medical History No Pertinent Family Hx Physical Exam Vital Signs Vital Signs - First Documented 09/08/22 13:36 Temp 35.8 Pulse 90 Resp 16 B/P (MAP) 186/95 (125) Pulse Ox 99 O2 Delivery Room Air Capillary Refill : Height/Weight/BMI Height: '" Weight: lbs. oz. kg; 259.00 BMI Method: General Appearance: moderate distress HEENT: PERRL/EOMI Neck: non-tender, full range of motion, supple Respiratory: chest non-tender, lungs clear, normal breath sounds Cardiovascular: regular rate, rhythm Gastrointestinal: normal bowel sounds, soft, no organomegaly, no pulsatile mass, tenderness (in the LLQ) Extremities: normal range of motion Back: normal inspection, no CVA tenderness, no vertebral tenderness Neurologic/Psychiatric: alert, oriented x 3 Skin: normal color Lymphatic: no adenopathy Progress/Results/Core Measures Results/Orders Lab Results Laboratory Tests Test 09/08/22 13:41 09/08/22 15:10 Range/Units Urine Color YELLOW Urine Clarity [place] Urine pH 7.0 5-9 Urine Specific [place] 1.025 H 1.016-1.022 Urine Protein NEGATIVE NEGATIVE Urine Glucose (UA) NEGATIVE NEGATIVE Urine Ketones NEGATIVE NEGATIVE Urine Nitrite NEGATIVE NEGATIVE Urine Bilirubin NEGATIVE NEGATIVE Urine Urobilinogen 0.2 < = 1.0 MG/DL Urine Leukocyte Esterase NEGATIVE NEGATIVE Urine RBC (Auto) NEGATIVE NEGATIVE Urine RBC NONE /HPF Urine WBC 2-5 /HPF Urine Squamous Epithelial Cells RARE /HPF Urine Crystals NONE /LPF Urine Bacteria NEGATIVE /HPF Urine Casts NONE /LPF Urine Mucus SMALL H /LPF Urine Culture Indicated NO Urine Test NEGATIVE NEGATIVE Urine Opiates Screen NEGATIVE NEGATIVE Urine Oxycodone Screen NEGATIVE NEGATIVE Urine Methadone Screen NEGATIVE NEGATIVE Urine Propoxyphene Screen NEGATIVE NEGATIVE Urine Barbiturates Screen NEGATIVE NEGATIVE Ur Tricyclic Antidepressants Screen NEGATIVE NEGATIVE Urine Phencyclidine Screen NEGATIVE NEGATIVE Urine Amphetamines Screen NEGATIVE NEGATIVE Urine Methamphetamines Screen NEGATIVE NEGATIVE Urine Benzodiazepines Screen NEGATIVE NEGATIVE Urine Cocaine Screen NEGATIVE NEGATIVE Urine Cannabinoids Screen POSITIVE H NEGATIVE White Blood Count 8.8 4.3-11.0 10^3/uL Red Blood Count 4.70 3.80-5.11 10^6/uL Hemoglobin 12.6 11.5-16.0 g/dL Hematocrit 39 35-52 % Mean Corpuscular Volume 84 80-99 fL Mean Corpuscular Hemoglobin 27 25-34 pg Mean Corpuscular Hemoglobin Concent 32 32-36 g/dL Red Cell Distribution Width 16.3 H 10.0-14.5 % Platelet Count 171 130-400 10^3/uL Mean Platelet Volume 11.4 9.0-12.2 fL Immature Granulocyte % (Auto) 1 % Neutrophils (%) (Auto) 80 H 42-75 % Lymphocytes (%) (Auto) 12 12-44 % Monocytes (%) (Auto) 5 0-12 % Eosinophils (%) (Auto) 2 0-10 % Basophils (%) (Auto) 1 0-10 % Neutrophils # (Auto) 7.0 1.8-7.8 10^3/uL Lymphocytes # (Auto) 1.1 1.0-4.0 10^3/uL Monocytes # (Auto) 0.4 0.0-1.0 10^3/uL Eosinophils # (Auto) 0.1 0.0-0.3 10^3/uL Basophils # (Auto) 0.1 0.0-0.1 10^3/uL Immature Granulocyte # (Auto) 0.1 0.0-0.1 10^3/uL My Orders Orders - ISABELA OROPEZA MD Alcohol (09/08/22 13:39) Cbc With Automated Diff (09/08/22 13:39) Comprehensive Metabolic Panel (09/08/22 13:39) Drug Screen Stat (Urine) (09/08/22 13:39) Hcg,Qualitative Urine (09/08/22 13:39) Lipase (09/08/22 13:39) Magnesium (09/08/22 13:39) Ua Culture If Indicated (09/08/22 13:39) Ed Iv/Invasive Line Start (09/08/22 14:08) Ketorolac Injection (Toradol Injection) (09/08/22 15:00) Prochlorperazine Injection (Compazine In (09/08/22 15:00) Ct Abdomen/Pelvis Wo (09/08/22 14:47) Medications Given in ED Current Medications Medications Dose Ordered Sig/Joelle Route Start Time Stop Time Status Last Admin Dose Admin Ketorolac Tromethamine 30 mg ONCE ONCE IM 09/08/22 15:00 09/08/22 15:01 DC 09/08/22 15:03 30 MG Prochlorperazine Edisylate 10 mg ONCE ONCE IM 09/08/22 15:00 09/08/22 15:01 DC 09/08/22 15:02 10 MG Vital Signs/I&O 09/08/22 13:36 Temp 35.8 Pulse 90 Resp 16 B/P (MAP) 186/95 (125) Pulse Ox 99 O2 Delivery Room Air Progress Progress Note : Progress Note 1. 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 Patient is informed that there is a possibility that disease and illness can evolve and change in acuity rapidly or slowly after patient is discharged from the ER. Precautionary advice given to the patient for immediate return to ER if symptoms worsen or do not resolve, and to seek emergency care sooner rather than later. Pt also advised on the importance of PCP follow up and compliance with management and follow up plan with PCP and/or specialist, as this is part of the management plan. Pt verbally expressed understanding. Diagnostic Imaging Diagonstic Imaging: CT Plain Films/CT/US/NM/MRI: abdomen Comments [facility]. [place], [place] NAME: MACI MORROW [facility] REC#: [id number] PT STATUS: REG ER : 1980 PHYSICIAN: ISABELA OROPEZA MD ADMIT DATE: 09/08/22/ER FS Signed Date of Exam:09/08/22 CT ABDOMEN/PELVIS WO PROCEDURE: CT abdomen and pelvis without contrast. TECHNIQUE: Multiple contiguous axial images were obtained through the abdomen and pelvis without the use of intravenous contrast. Auto Exposure Controls were utilized during the CT exam to meet ALARA standards for radiation dose reduction. INDICATION: Left lower quadrant pain The lung bases are clear. The liver is unremarkable. There is a biliary stent in the common duct. The gallbladder is surgically absent. Pancreas appears grossly normal. The spleen is not enlarged. Adrenals are normal. Kidneys appear normal. There is some calcific atherosclerosis of aorta but no aneurysm. Small bowel is not dilated. There is a moderate amount of stool present in the colon. There is diverticulosis of the colon but no evidence of diverticulitis. Uterus is surgically absent. Urinary bladder appears normal. There is no intraperitoneal free air or free fluid. There are no pathologic masses or fluid collections seen. IMPRESSION: Postoperative changes from cholecystectomy and hysterectomy. Patient has a biliary stent. There is fecal stasis and uncomplicated diverticulosis of the colon. No acute abnormality seen. Dictated by: Dictated on workstation # [id number] Dict: 09/08/22 1528 Trans: 09/08/22 1531 TCB [id number] Interpreted by: NISHA PARRY MD Electronically signed by: NISHA PARRY MD 09/08/22 1531 Departure Impression Primary Impression: Diverticulosis of colon without diverticulitis Additional Impressions: LLQ abdominal pain Marijuana abuse, continuous Disposition: 01 HOME, SELF-CARE Condition: Stable Departure-Patient Inst. Referrals: NANCY BAH DO (PCP) Primary Care Physician Patient Instructions: Nausea and Vomiting, Adult (DC), Diverticulosis, Nausea and Vomiting, Adult, Diverticulosis (DC) Add. Discharge Instructions: - FOllow up with PCP within 7 days , and advised to make GI appointment - Advised adequate hydration, Ibuprofen as needed for pain, Pepcid 20mg daily ( over the counter), Zofran prescription prn nausea, vomiting. - Advised to stop marijuana usage as this can trigger abdominal pain and vomiting All discharge instructions reviewed with patient and/or family. Voiced understanding. Scripts Ondansetron (Ondansetron Odt) 4 Mg Tab.rapdis 4 MG SL Q4H PRN for NAUSEA/VOMITING for 5 Days, #20 TAB Prov: ISABELA OROPEZA MD 09/08/22 ISABELA OROPEZA MD Sep 08, 2022 13:36
[2022-09-08 13:47] LABS: BILIRUBIN,URINE NEGATIVE (NEGATIVE); CLARITY,URINE SL CLOUDY; COLOR,URINE YELLOW; GLUCOSE, URINE (UA) NEGATIVE (NEGATIVE); KETONES,URINE NEGATIVE (NEGATIVE); LEUKOCYTE ESTERASE ,URINE NEGATIVE (NEGATIVE); NITRITE,URINE NEGATIVE (NEGATIVE); PROTEIN,URINE NEGATIVE (NEGATIVE)
[2022-09-08 14:00] LABS: HCG,QUALITATIVE URINE NEGATIVE (NEGATIVE)
[2022-09-08 14:03] LABS: BACTERIA,URINE NEGATIVE /HPF; SQUAMOUS EPITHELIAL CELL,UR RARE /HPF
[2022-09-08] MEDS ORDERED: KETOROLAC 15 MG/ML VIAL IVP STA (14:05)
[2022-09-08 14:09] LABS: AMPHETAMINE SCREEN, URINE NEGATIVE (NEGATIVE); BARBITURATE SCREEN URINE NEGATIVE (NEGATIVE); BENZODIAZEPINES SCREEN URINE NEGATIVE (NEGATIVE); CANNABINOID SCREEN, URINE POSITIVE (NEGATIVE); COCAINE SCREEN URINE NEGATIVE (NEGATIVE); OPIATE SCREEN URINE NEGATIVE (NEGATIVE)
[2022-09-08 14:10] LABS: METHADONE STAT NEGATIVE (NEGATIVE); OXYCODONE STAT NEGATIVE (NEGATIVE); PROPOXYPHENE STAT NEGATIVE (NEGATIVE); TRICYCLIC ANTIDEPRESSANTS SCRE NEGATIVE (NEGATIVE)
[2022-09-08] MEDS ORDERED: PROCHLORPERAZINE 10 MG/2ML INJ (COMPAZINE) IV ONE (14:15)
[2022-09-08] MEDS ORDERED: NS IV 1000 ML 1,000 ML IV SCH (14:15)
[2022-09-08] MEDS ORDERED: PROCHLORPERAZINE 10 MG/2ML INJ (COMPAZINE) IM ONE (15:00)
[2022-09-08] MEDS ORDERED: KETOROLAC 30 MG/ML VIAL IM ONE (15:00)
[2022-09-08 15:16] LABS: BASOPHILS # (AUTO) 0.1 10^3/uL (0.0-0.1); BASOPHILS % (AUTO) 1 % (0-10); EOSINOPHILS # (AUTO) 0.1 10^3/uL (0.0-0.3); EOSINOPHILS % (AUTO) 2 % (0-10); HEMATOCRIT 39 % (35-52); HEMOGLOBIN 12.6 g/dL (11.5-16.0); LYMPHOCYTES # (AUTO) 1.1 10^3/uL (1.0-4.0); LYMPHOCYTES % (AUTO) 12 % (12-44); MEAN CORPUSCULAR HEMOGLOBIN 27 pg (25-34); MEAN CORPUSCULAR HGB CONC 32 g/dL (32-36); MEAN CORPUSCULAR VOLUME 84 fL (80-99); MEAN PLATELET VOLUME 11.4 fL (9.0-12.2); MONOCYTES # (AUTO) 0.4 10^3/uL (0.0-1.0); MONOCYTES % (AUTO) 5 % (0-12); NEUTROPHILS % (AUTO) 80 % (42-75); PLATELET COUNT 171 10^3/uL (130-400); WHITE BLOOD COUNT 8.8 10^3/uL (4.3-11.0)
--- NOTE | 2022-09-08 15:33 | Diagnostic Imaging Report ---
PROCEDURE: CT abdomen and pelvis without contrast. TECHNIQUE: Multiple contiguous axial images were obtained through the abdomen and pelvis without the use of intravenous contrast. Auto Exposure Controls were utilized during the CT exam to meet ALARA standards for radiation dose reduction. INDICATION: Left lower quadrant pain The lung bases are clear. The liver is unremarkable. There is a biliary stent in the common duct. The gallbladder is surgically absent. Pancreas appears grossly normal. The spleen is not enlarged. Adrenals are normal. Kidneys appear normal. There is some calcific atherosclerosis of aorta but no aneurysm. Small bowel is not dilated. There is a moderate amount of stool present in the colon. There is diverticulosis of the colon but no evidence of diverticulitis. Uterus is surgically absent. Urinary bladder appears normal. There is no intraperitoneal free air or free fluid. There are no pathologic masses or fluid collections seen. IMPRESSION: Postoperative changes from cholecystectomy and hysterectomy. Patient has a biliary stent. There is fecal stasis and uncomplicated diverticulosis of the colon. No acute abnormality seen. Dictated by: Dictated on workstation # [id number]
[2022-09-08 15:41] LABS: BUN/CREATININE RATIO 18; CARBON DIOXIDE 23 MMOL/L (21-32); CHLORIDE 101 MMOL/L (98-107); CREATININE SERUM 0.68 MG/DL (0.60-1.30); GFR ESTIMATED 111; GLUCOSE 243 MG/DL (70-105); POTASSIUM 4.7 MMOL/L (3.6-5.0); SODIUM 137 MMOL/L (135-145)
[2022-09-08 15:42] LABS: ALANINE AMINOTRANSFERASE 10 U/L (0-55); ALBUMIN 3.9 GM/DL (3.2-4.5); ALKALINE PHOSPHATASE 113 U/L (40-136); BILIRUBIN,TOTAL 0.3 MG/DL (0.1-1.0); LIPASE 6 U/L (8-78); MAGNESIUM 2.2 MG/DL (1.6-2.4); TOTAL PROTEIN 6.7 GM/DL (6.4-8.2)
[2022-09-08] MEDS ORDERED: ONDA4TAB11 SL (15:50)
[2022-09-08 15:52] VITALS: BP 178/89
[2022-09-08] MEDS ORDERED: FAMOTIDINE 20 MG (PEPCID) TABLET PO ONE (16:00)
== END 2022-09-08 15:58 | disposition home or self-care (01) ==
LOC: EDUNIT# 13:25 → ER FS 13:26
DX: K57.30 Diverticulosis of large intestine without perforation or abscess without bleeding (principal); F12.90 Cannabis use, unspecified, uncomplicated; E10.9 Type 1 diabetes mellitus without complications; Z28.310 Unvaccinated for COVID-19; Z79.4 Long term (current) use of insulin
CPT/HCPCS: 36415; 74176; 80053; 80306; 81000; 83690; 83735; 84703; 85025; 99283; G0480; 80320

== ENCOUNTER 2022-10-05 00:04 | Emergency (ER) | payer MEDICARE, MEDICAID ==
[~2022-10-05] VITALS: Ht 165 cm; Wt 64.7 kg
[~2022-10-05 00:04] MED LIST changes: +ONDA4TAB11 SL
--- NOTE | 2022-10-05 00:15 | ED Abdominal Pain ---
General Stated Complaint: STOMACH PAIN History of Present Illness Date Seen by Provider: Oct 05, 2022 Time Seen by Provider: 00:15 Initial Comments 41-year-old female presents with left-sided abdominal pain. Patient reports is been going on for days. Patient has a history of abdominal pain and reports that she just cannot eat or keep weaning down right now. Patient has a history of type 1 diabetes, marijuana use and gastroparesis. She reports that she has not smoked marijuana and about a week. She frequently has abdominal pain. Allergies and Home Medications Allergies Coded Allergies: Penicillins (Verified Allergy, Unknown, 03/18/22) azithromycin (Verified Allergy, Unknown, 03/18/22) cephalexin (Verified Allergy, Unknown, 03/18/22) meperidine (Verified Allergy, Unknown, 03/18/22) metoclopramide (Verified Allergy, Unknown, 03/18/22) Patient Home Medication List Home Medication List Reviewed: Yes Acetaminophen (Tylenol Extra Strength) 500 Mg Tablet, 1,000 MG PO Q8H PRN for PAIN-MILD (1-4), (Reported) Entered as Reported by: ALFRED WALLACE on 03/24/22 0951 Atorvastatin Calcium (Atorvastatin Calcium) 20 Mg Tablet, 20 MG PO DAILY, (Reported) Entered as Reported by: ALFRED WALLACE on 03/24/22 0948 Buprenorphine HCl/Naloxone HCl (Buprenorphine-Nalox 8-2Mg Film) 8 Mg-2 Mg Film, 1 EACH PO BID, (Reported) Entered as Reported by: ALFRED WALLACE on 03/24/22 0948 Estradiol (Estradiol Tablet) 1 Mg Tablet, 1 MG PO DAILY, (Reported) Entered as Reported by: ALFRED WALLACE on 03/24/22 0948 Gabapentin (Gabapentin) 600 Mg Tablet, 600 MG PO BID, (Reported) Entered as Reported by: ALFRED WALLACE on 03/24/22 1008 Glucagon (Baqsimi) 3 Mg/Actuation [place], 1 SPRAY NS UD PRN for HYPOGLYCEMIA, (Reported) Entered as Reported by: ALFRED WALLACE on 03/24/22 0948 Ibuprofen (Ibuprofen) 200 Mg Tablet, 400 MG PO Q8H PRN for PAIN-MILD (1-4), (Reported) Entered as Reported by: ALFRED WALLACE on 03/24/22 0952 Insulin Aspart (Novolog) 100 Unit/Ml Susp, UNITS SC UD, (Reported) Entered as Reported by: ALFRED WALLACE on 03/24/22 0957 Ondansetron (Ondansetron Odt) 4 Mg Tab.rapdis, 4 MG PO TID PRN for NAUSEA/VOMITING, (Reported) Entered as Reported by: ALFRED WALLACE on 03/24/22 0948 Ondansetron (Ondansetron Odt) 4 Mg Tab.rapdis, 4 MG SL Q4H PRN for NAUSEA/VOMITING Prescribed by: ISABELA OROPEZA MD on 09/08/22 1550 Polyethylene Glycol 3350 (Miralax) 17 Gram Powd.pack, 17 GM PO BID PRN for CONSTIPATION-2ND LINE, (Reported) Entered as Reported by: ALFRED WALLACE on 03/24/22 1002 Promethazine HCl (Promethazine Tablet) 25 Mg Tablet, 25 MG PO TID PRN for NAUSEA/VOMITING Prescribed by: ALLI PRETTY on 06/22/22 1026 Discontinued Medications Nitrofurantoin Monohyd/M-Cryst (Nitrofurantoin [place]-Mcr 100 mg) 100 Mg Capsule, 100 MG PO BID Discontinued Reason: Referral/FU Appt-Addtl Prescribed by: ALLI PRETTY on 06/22/22 1026 Last Action: Discontinued Review of Systems Review of Systems Constitutional: No chills, No fever; malaise EENTM: No Symptoms Reported Respiratory: Cough Cardiovascular: No Symptoms Reported Gastrointestinal: Abdominal Pain, Nausea, Vomiting Genitourinary: No Symptoms Reported Musculoskeletal: no symptoms reported Skin: no symptoms reported Past Rurjrod-Npiodp-Ammyxn Hx Immunizations Up To Date First/Initial COVID19 Vaccinat: none Second COVID19 Vaccination Jake: none Third COVID19 Vaccination Date: none Past Medical History Surgery/Hospitalization HX: left upper arm nerve repain, gastric stimulator, insulin pump Surgeries: Yes Abdominal, Gallbladder, Hysterectomy, Orthopedic Respiratory: No Cardiac: Yes High Cholesterol, Hypertension Neurological: No Diabetes, Insulin dep Cancer: No Psychosocial: No Integumentary: No Family Medical History No Pertinent Family Hx Physical Exam Vital Signs Vital Signs - First Documented 10/05/22 00:07 Temp 36.0 Pulse 92 Resp 20 B/P (MAP) 164/82 (109) O2 Delivery Room Air Capillary Refill : Height/Weight/BMI Height: '" Weight: lbs. oz. kg; 26.00 BMI Method: General Appearance: moderate distress Neck: full range of motion, supple Respiratory: lungs clear, normal breath sounds Cardiovascular: tachycardia Gastrointestinal: guarding, tenderness (Diffuse greatest on left) Extremities: normal range of motion Neurologic/Psychiatric: alert Skin: normal color, warm/dry Progress/Results/Core Measures Results/Orders Lab Results Laboratory Tests Test 10/05/22 00:19 10/05/22 00:24 10/05/22 00:35 10/05/22 01:08 Range/Units Glucometer 264 H 70-110 MG/DL White Blood Count 10.0 4.3-11.0 10^3/uL Red Blood Count 5.08 3.80-5.11 10^6/uL Hemoglobin 13.8 11.5-16.0 g/dL Hematocrit 42 35-52 % Mean Corpuscular Volume 83 80-99 fL Mean Corpuscular Hemoglobin 27 25-34 pg Mean Corpuscular Hemoglobin Concent 33 32-36 g/dL Red Cell Distribution Width 15.8 H 10.0-14.5 % Platelet Count 227 130-400 10^3/uL Mean Platelet Volume 10.9 9.0-12.2 fL Immature Granulocyte % (Auto) 0 % Neutrophils (%) (Auto) 59 42-75 % Lymphocytes (%) (Auto) 30 12-44 % Monocytes (%) (Auto) 6 0-12 % Eosinophils (%) (Auto) 4 0-10 % Basophils (%) (Auto) 1 0-10 % Neutrophils # (Auto) 5.9 1.8-7.8 10^3/uL Lymphocytes # (Auto) 3.0 1.0-4.0 10^3/uL Monocytes # (Auto) 0.6 0.0-1.0 10^3/uL Eosinophils # (Auto) 0.4 H 0.0-0.3 10^3/uL Basophils # (Auto) 0.1 0.0-0.1 10^3/uL Immature Granulocyte # (Auto) 0.0 0.0-0.1 10^3/uL Sodium Level 136 135-145 MMOL/L Potassium Level 4.5 3.6-5.0 MMOL/L Chloride Level 99 98-107 MMOL/L Carbon Dioxide Level 23 21-32 MMOL/L Anion Gap 14 5-14 MMOL/L Blood Urea Nitrogen 15 7-18 MG/DL Creatinine 0.72 0.60-1.30 MG/DL Estimat Glomerular Filtration Rate 106 BUN/Creatinine Ratio 21 Glucose Level 275 H 70-105 MG/DL Calcium Level 10.0 8.5-10.1 MG/DL Corrected Calcium 8.5-10.1 MG/DL Magnesium Level 2.1 1.6-2.4 MG/DL Total Bilirubin 0.6 0.1-1.0 MG/DL Aspartate Amino Transf (AST/SGOT) 20 5-34 U/L Alanine Aminotransferase (ALT/SGPT) 17 0-55 U/L Alkaline Phosphatase 114 40-136 U/L C-Reactive Protein < 0.30 <0.50 MG/DL Total Protein 7.9 6.4-8.2 GM/DL Albumin 4.6 H 3.2-4.5 GM/DL Lipase 6 L 8-78 U/L Influenza Type A (RT-PCR) Not Detected Not Detecte Influenza Type B (RT-PCR) Not Detected Not Detecte SARS-CoV-2 RNA (RT-PCR) Not Detected Not Detecte Bedside Blood Gas pH (LAB) 7.386 7.310-7.410 Bedside Blood Gas pCO2 (LAB) 22.9 L 41.0-51.0 mmHg Bedside Blood Gas pO2 (LAB) 140 H 80-105 mmHg Bedside Blood Gas HCO3 (LAB) 13.8 *L 23.0-28.0 mmol/L POC Blood Gas Total CO2 Calc 14 L 24-29 mmol/L Bedside Bl Gas O2 Saturation (Calc) 99 H 95-98 % Bedside Arterial Blood Base Excess -11 L -2-3 mmol/L Test 10/05/22 06:10 Range/Units Glucometer 288 H 70-110 MG/DL My Orders Orders - ACOSTA,CAREY L DO Cbc With Automated Diff (10/05/22 00:24) Comprehensive Metabolic Panel (10/05/22 00:24) Lipase (10/05/22 00:24) Magnesium (10/05/22 00:24) Ua Culture If Indicated (10/05/22 00:24) Crp Fs (10/05/22 00:24) Ondansetron Injection (Zofran Injectio (10/05/22 00:30) Lactated Ringers (Lr 1000 Ml Iv Solution (10/05/22 00:24) Famotidine Injection (Pepcid Injection) (10/05/22 00:24) Hyoscyamine Sl Tablet (Levsin Sl Tablet) (10/05/22 00:30) Beta Hydroxybutyrate (10/05/22 00:24) Ketorolac Injection (Toradol Injection) (10/05/22 00:24) Acute Abd Series (10/05/22 00:28) Influenza A And B By Pcr (10/05/22 00:28) Covid 19 Inhouse Test (10/05/22 00:28) Dicyclomine Injection (Bentyl Injection) (10/05/22 01:30) Diphenhydramine Injection (Benadryl Inje (10/05/22 01:28) Lorazepam Injection (Ativan Injection) (10/05/22 01:45) Medications Given in ED Current Medications Medications Dose Ordered Sig/Joelle Route Start Time Stop Time Status Last Admin Dose Admin Dicyclomine HCl 20 mg ONCE ONCE IM 10/05/22 01:30 10/05/22 01:31 DC 10/05/22 01:29 20 MG Hyoscyamine Sulfate 0.125 mg ONCE ONCE SL 10/05/22 00:30 10/05/22 00:31 DC 10/05/22 00:40 0.125 MG Lorazepam 2 mg ONCE ONCE IVP 10/05/22 01:45 10/05/22 01:46 DC 10/05/22 02:05 2 MG Ondansetron HCl 4 mg ONCE ONCE IVP 10/05/22 00:30 10/05/22 00:31 DC 10/05/22 00:40 4 MG Vital Signs/I&O 10/05/22 00:07 Temp 36.0 Pulse 92 Resp 20 B/P (MAP) 164/82 (109) O2 Delivery Room Air Progress Progress Note : Progress Note Patient pain improved with treatment. Patient actually fell asleep. We allowed her to sleep in the ER for couple hours because her biggest one of her biggest complaints was the fact that she was having hard time getting any sleep. She slept comfortably for at least 3 hours while here. We did awake her approximate ly 6:30 in the morning and discharged her. I recommend she follow-up with her primary care provider and GI specialist. I recommend she call them later this morning. She is stable and discharged home. Patient had a CT less than a month ago that was normal with no acute findings on labs. Her pain and her nausea and vomiting are both chronic. Departure Impression Primary Impression: Chronic abdominal pain Additional Impression: Nausea and vomiting in adult Disposition: 01 HOME, SELF-CARE Condition: Stable Departure-Patient Inst. Referrals: NANCY BAH DO (PCP/Family) Primary Care Physician Patient Instructions: Abdominal Pain, Adult ED Add. Discharge Instructions: Please follow-up with your primary care provider for further outpatient evaluation along with recommendations for GI specialist for further management CAREY ACOSTA DO Oct 05, 2022 00:15
[2022-10-05] MEDS ORDERED: LACTATED RINGERS 1,000 ML IV STA (00:24)
[2022-10-05] MEDS ORDERED: KETOROLAC 30 MG/ML VIAL IVP STA (00:24)
[2022-10-05] MEDS ORDERED: FAMOTIDINE 20MG/2ML IV (PEPCID) IV STA (00:24)
[2022-10-05] MEDS ORDERED: ONDANSETRON 4 MG/2 ML (SDV) Z0FRAN IVP ONE (00:30)
[2022-10-05] MEDS ORDERED: HYOSCYAMINE 0.125 MG (LEVSIN) TAB SL ONE (00:30)
[2022-10-05 00:40] LABS: BASOPHILS # (AUTO) 0.1 10^3/uL (0.0-0.1); BASOPHILS % (AUTO) 1 % (0-10); EOSINOPHILS # (AUTO) 0.4 10^3/uL (0.0-0.3); EOSINOPHILS % (AUTO) 4 % (0-10); HEMATOCRIT 42 % (35-52); HEMOGLOBIN 13.8 g/dL (11.5-16.0); LYMPHOCYTES % (AUTO) 30 % (12-44); MEAN CORPUSCULAR HEMOGLOBIN 27 pg (25-34); MEAN CORPUSCULAR HGB CONC 33 g/dL (32-36); MEAN CORPUSCULAR VOLUME 83 fL (80-99); MEAN PLATELET VOLUME 10.9 fL (9.0-12.2); MONOCYTES # (AUTO) 0.6 10^3/uL (0.0-1.0); MONOCYTES % (AUTO) 6 % (0-12); NEUTROPHILS # (AUTO) 5.9 10^3/uL (1.8-7.8); NEUTROPHILS % (AUTO) 59 % (42-75); PLATELET COUNT 227 10^3/uL (130-400)
[2022-10-05 01:07] LABS: POTASSIUM 4.5 MMOL/L (3.6-5.0); SODIUM 136 MMOL/L (135-145)
[2022-10-05 01:08] LABS: BUN/CREATININE RATIO 21; CARBON DIOXIDE 23 MMOL/L (21-32); CHLORIDE 99 MMOL/L (98-107); CREATININE SERUM 0.72 MG/DL (0.60-1.30); GFR ESTIMATED 106; GLUCOSE 275 MG/DL (70-105)
[2022-10-05 01:10] LABS: ALANINE AMINOTRANSFERASE 17 U/L (0-55); ALKALINE PHOSPHATASE 114 U/L (40-136); BILIRUBIN,TOTAL 0.6 MG/DL (0.1-1.0); MAGNESIUM 2.1 MG/DL (1.6-2.4)
[2022-10-05 01:11] LABS: ALBUMIN 4.6 GM/DL (3.2-4.5); LIPASE 6 U/L (8-78); TOTAL PROTEIN 7.9 GM/DL (6.4-8.2)
[2022-10-05] MEDS ORDERED: diphenhydrAMINE 50 MG/ML INJ (BENADRYL) IV STA (01:28)
[2022-10-05] MEDS ORDERED: DICYCLOMINE 10 MG/ML (BENTYL) 2 ML AMP IM ONE (01:30)
[2022-10-05] MEDS ORDERED: LORazepam INJ 2 MG/ML (ATIVAN) VIAL IVP ONE (01:45)
[2022-10-05 06:40] VITALS: BP 107/64
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
[2022-10-05] MEDS ORDERED: SULF1TAB38 PO (09:04)
[2022-10-05] MEDS ORDERED: ACHD5005 PO (09:04)
[2022-10-05] MEDS ORDERED: IBUP-1779 PO (09:04)
[2022-10-05] MEDS ORDERED: METH-732 PO (09:11)
== END 2022-10-05 06:40 | disposition home or self-care (01) ==
LOC: EDUNIT# 00:04 → ER FS 00:08
DX: R10.84 Generalized abdominal pain (principal); G89.29 Other chronic pain; R11.2 Nausea with vomiting, unspecified; E11.9 Type 2 diabetes mellitus without complications; Z79.4 Long term (current) use of insulin; Z96.41 Presence of insulin pump (external) (internal); Z88.8 Allergy status to other drugs, medicaments and biological substances; Z28.310 Unvaccinated for COVID-19; Z20.822 Contact with and (suspected) exposure to COVID-19
CPT/HCPCS: 36415; 74022; 80053; 82010; 82805; 82947; 83690; 83735; 85025; 86141; 87636

== ENCOUNTER 2022-10-05 07:20 | Emergency (ER) | payer MEDICARE, MEDICAID ==
[~2022-10-05] VITALS: Ht 165 cm; Wt 64.0 kg
[2022-10-05] MEDS ORDERED: ORPHENADRINE 60 MG/2 ML (NORFLEX) AMP (ED ONLY) IM STA (07:32)
[2022-10-05] MEDS ORDERED: morphine INJ 10 MG/ML 1ML (SYR OR VIAL) IM STA (07:32)
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
[2022-10-05 08:10] LABS: BILIRUBIN,URINE NEGATIVE (NEGATIVE); CLARITY,URINE CLOUDY; GLUCOSE, URINE (UA) 3+ (NEGATIVE); KETONES,URINE 1+ (NEGATIVE); LEUKOCYTE ESTERASE ,URINE NEGATIVE (NEGATIVE); NITRITE,URINE POSITIVE (NEGATIVE); PROTEIN,URINE TRACE (NEGATIVE)
[2022-10-05 08:30] LABS: BACTERIA,URINE LARGE /HPF; HYALINE CASTS, URINE 25-50 /LPF; RBC,URINE 0-2 /HPF
[2022-10-05 08:31] LABS: YEAST,URINE PRESENT /HPF
[2022-10-05 08:32] LABS: COLOR,URINE DARK YELLOW
[2022-10-05 08:37] LABS: AMPHETAMINE SCREEN, URINE NEGATIVE (NEGATIVE); BARBITURATE SCREEN URINE NEGATIVE (NEGATIVE); BENZODIAZEPINES SCREEN URINE POSITIVE (NEGATIVE); CANNABINOID SCREEN, URINE POSITIVE (NEGATIVE); COCAINE SCREEN URINE NEGATIVE (NEGATIVE); METHADONE STAT NEGATIVE (NEGATIVE); OPIATE SCREEN URINE NEGATIVE (NEGATIVE); OXYCODONE STAT NEGATIVE (NEGATIVE); PROPOXYPHENE STAT NEGATIVE (NEGATIVE); TRICYCLIC ANTIDEPRESSANTS SCRE NEGATIVE (NEGATIVE)
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
[2022-10-05] MEDS ORDERED: IBUP-1779 PO (09:04)
[2022-10-05] MEDS ORDERED: SULF1TAB38 PO (09:04)
[2022-10-05] MEDS ORDERED: ACHD5005 PO (09:04)
[2022-10-05 09:09] VITALS: BP 128/84
[2022-10-05] MEDS ORDERED: HYDROcodone/APAP 5 MG/325 MG (LORTAB) TAB PO STA (09:09)
[2022-10-05] MEDS ORDERED: TRIM/SULFAMETH 160/800 (SEPTRA DS) TAB PO STA (09:09)
[2022-10-05] MEDS ORDERED: METH-732 PO (09:11)
== END 2022-10-05 09:25 | disposition home or self-care (01) ==
LOC: EDUNIT# 07:20 → ER FS 07:21
DX: S01.511A Laceration without foreign body of lip, initial encounter (principal); S16.1XXA Strain of muscle, fascia and tendon at neck level, initial encounter; S39.012A Strain of muscle, fascia and tendon of lower back, initial encounter; S80.211A Abrasion, right knee, initial encounter; N30.00 Acute cystitis without hematuria; E11.9 Type 2 diabetes mellitus without complications; Z79.4 Long term (current) use of insulin; Z28.310 Unvaccinated for COVID-19; V89.2XXA Person injured in unspecified motor-vehicle accident, traffic, initial encounter; Y92.410 Unspecified street and highway as the place of occurrence of the external cause
CPT/HCPCS: 12011; 70450; 70486; 71250; 72125; 74176; 80306; 81000; 87088

== ENCOUNTER 2022-10-08 07:49 | Emergency (ER) | payer MEDICARE, MEDICAID ==
[~2022-10-08] VITALS: Ht 165 cm; Wt 62.0 kg
[~2022-10-08 07:49] MED LIST changes: +ACHD5005 PO; +IBUP-1779 PO; +METH-732 PO
[2022-10-08] MEDS ORDERED: ONDANSETRON 4 MG (ZOFRAN) ORAL DISSOLVE TAB PO STA (07:58)
[2022-10-08] MEDS ORDERED: FAMOTIDINE 20 MG (PEPCID) TABLET PO ONE (08:00)
--- NOTE | 2022-10-08 08:09 | ED General ---
General Stated Complaint: ABD PAIN Source of Information: Patient, Family Allergies and Home Medications Allergies Coded Allergies: Penicillins (Verified Allergy, Unknown, 03/18/22) azithromycin (Verified Allergy, Unknown, 03/18/22) cephalexin (Verified Allergy, Unknown, 03/18/22) meperidine (Verified Allergy, Unknown, 03/18/22) metoclopramide (Verified Allergy, Unknown, 03/18/22) Patient Home Medication List Acetaminophen (Tylenol Extra Strength) 500 Mg Tablet, 1,000 MG PO Q8H PRN for PAIN-MILD (1-4), (Reported) Entered as Reported by: ALFRED WALLACE on 03/24/22 0951 Atorvastatin Calcium (Atorvastatin Calcium) 20 Mg Tablet, 20 MG PO DAILY, (Reported) Entered as Reported by: ALFRED WALLACE on 03/24/22 0948 Buprenorphine HCl/Naloxone HCl (Buprenorphine-Nalox 8-2Mg Film) 8 Mg-2 Mg Film, 1 EACH PO BID, (Reported) Entered as Reported by: ALFRED WALLACE on 03/24/22 0948 Estradiol (Estradiol Tablet) 1 Mg Tablet, 1 MG PO DAILY, (Reported) Entered as Reported by: ALFRED WALLACE on 03/24/22 0948 Gabapentin (Gabapentin) 600 Mg Tablet, 600 MG PO BID, (Reported) Entered as Reported by: ALFRED WALLACE on 03/24/22 1008 Glucagon (Baqsimi) 3 Mg/Actuation [place], 1 SPRAY NS UD PRN for HYPOGLYCEMIA, (Reported) Entered as Reported by: ALFRED WALLACE on 03/24/22 0948 Hydrocodone/Acetaminophen (Hydrocodone-Acetamin 5-325 mg) 5 Mg-325 Mg Tablet, 1 TAB PO Q6H PRN for PAIN-SEVERE (8-10) Prescribed by: JANEY SALAS on 10/05/22 0906 Ibuprofen (Ibuprofen) 200 Mg Tablet, 400 MG PO Q8H PRN for PAIN-MILD (1-4), (Re ported) Entered as Reported by: ALFRED WALLACE on 03/24/22 0952 Ibuprofen (Ibuprofen) 400 Mg Tablet, 400 MG PO Q8H Prescribed by: JANEY SALAS on 10/05/22 0904 Insulin Aspart (Novolog) 100 Unit/Ml Susp, UNITS SC UD, (Reported) Entered as Reported by: ALFRED WALLACE on 03/24/22 0957 Methocarbamol (Methocarbamol) 750 Mg Tablet, 750 MG PO Q8H PRN for MUSCLE SPASMS Prescribed by: JANEY SALAS on 10/05/22 0911 Ondansetron (Ondansetron Odt) 4 Mg Tab.rapdis, 4 MG PO TID PRN for NAUSEA/VOMITING, (Reported) Entered as Reported by: ALFRED WALLACE on 03/24/22 0948 Ondansetron (Ondansetron Odt) 4 Mg Tab.rapdis, 4 MG SL Q4H PRN for NAUSEA/VOMITING Prescribed by: ISABELA OROPEZA MD on 09/08/22 1550 Polyethylene Glycol 3350 (Miralax) 17 Gram Powd.pack, 17 GM PO BID PRN for CONSTIPATION-2ND LINE, (Reported) Entered as Reported by: ALFRED WALLACE on 03/24/22 1002 Promethazine HCl (Promethazine Tablet) 25 Mg Tablet, 25 MG PO TID PRN for NAUSEA/VOMITING Prescribed by: ALLI PRETTY on 06/22/22 1026 Sulfamethoxazole/Trimethoprim (Bactrim Ds Tablet) 1 Each Tablet, 1 EACH PO BID Prescribed by: JANEY SALAS on 10/05/22 0904 Discontinued Medications Nitrofurantoin Monohyd/M-Cryst (Nitrofurantoin Cherry-Mcr 100 mg) 100 Mg Capsule, 100 MG PO BID Discontinued Reason: Referral/FU Appt-Addtl Prescribed by: ALLI PRETTY on 06/22/22 1026 Past Qgjrncm-Rgqssw-Xbytrx Hx Immunizations Up To Date First/Initial COVID19 Vaccinat: none Second COVID19 Vaccination Jake: none Third COVID19 Vaccination Date: none Past Medical History Surgery/Hospitalization HX: left upper arm nerve repain, gastric stimulator, insulin pump, hysterectomy, gallbladder, Surgeries: Yes Abdominal, Gallbladder, Hysterectomy, Orthopedic Respiratory: No Cardiac: Yes High Cholesterol, Hypertension Neurological: No Diabetes, Insulin dep Cancer: No Psychosocial: No Integumentary: No Family Medical History No Pertinent Family Hx Physical Exam Vital Signs Capillary Refill : Height, Weight, BMI Height: '" Weight: lbs. oz. kg; 23.00 BMI Method: Progress/Results/Core Measures Suspected Sepsis SIRS Temperature: Pulse: Respiratory Rate: Blood Pressure / Mean: Results/Orders My Orders Orders - RYAN HEATON DO Ondansetron Oral Dissolve Tab (Zofran (10/08/22 07:58) Famotidine Tablet (Pepcid Tablet) (10/08/22 08:00) Accucheck Stat ONCE (10/08/22 07:58) Urinalysis (10/08/22 07:59) Drug Screen Stat (Urine) (10/08/22 07:59) Vital Signs/I&O Capillary Refill : Departure Departure-Patient Inst. Referrals: NANCY BAH DO (PCP/Family) Primary Care Physician RYAN HEATON DO Oct 08, 2022 08:09
[2022-10-08] MEDS ORDERED: HALOPERIDOL 5 MG/ML (HALDOL) VIAL IV ONE ×2 (08:15→09:15)
[2022-10-08] MEDS: NS IV 1000 ML 1,000 ML IV SCH ×2 (08:32→09:20)
[2022-10-08] MEDS ORDERED: HALOPERIDOL 5 MG/ML (HALDOL) VIAL ONE ×2 (08:35→09:18)
[2022-10-08 08:37] LABS: BASOPHILS # (AUTO) 0.1 10^3/uL (0.0-0.1); BASOPHILS % (AUTO) 1 % (0-10); EOSINOPHILS # (AUTO) 0.3 10^3/uL (0.0-0.3); EOSINOPHILS % (AUTO) 4 % (0-10); HEMATOCRIT 38 % (35-52); HEMOGLOBIN 12.5 g/dL (11.5-16.0); LYMPHOCYTES # (AUTO) 1.8 10^3/uL (1.0-4.0); LYMPHOCYTES % (AUTO) 22 % (12-44); MEAN CORPUSCULAR HEMOGLOBIN 27 pg (25-34); MEAN CORPUSCULAR HGB CONC 33 g/dL (32-36); MEAN CORPUSCULAR VOLUME 82 fL (80-99); MEAN PLATELET VOLUME 10.4 fL (9.0-12.2); MONOCYTES # (AUTO) 0.4 10^3/uL (0.0-1.0); MONOCYTES % (AUTO) 5 % (0-12); NEUTROPHILS # (AUTO) 5.4 10^3/uL (1.8-7.8); NEUTROPHILS % (AUTO) 68 % (42-75); PLATELET COUNT 184 10^3/uL (130-400); WHITE BLOOD COUNT 8.1 10^3/uL (4.3-11.0)
[2022-10-08 08:53] VITALS: BP 171/80
[2022-10-08 08:55] LABS: ALBUMIN 4.3 GM/DL (3.2-4.5); BILIRUBIN,TOTAL 0.7 MG/DL (0.1-1.0); CALCIUM 9.4 MG/DL (8.5-10.1); CREATININE SERUM 0.72 MG/DL (0.60-1.30); POTASSIUM 4.2 MMOL/L (3.6-5.0); TOTAL PROTEIN 7.2 GM/DL (6.4-8.2)
[2022-10-20] MEDS ORDERED: LISI10TA25 PO (15:47)
[2022-10-20] MEDS ORDERED: PROC10TA10 PO (15:50)
[2022-10-20] MEDS ORDERED: ACHD5005 PO (15:50)
[2022-10-20] MEDS ORDERED: PROM25TA14 PO (15:50)
== END 2022-10-08 09:48 | disposition left against medical advice (07) ==
LOC: EDUNIT# 07:49 → ER FS 07:50
DX: R10.9 Unspecified abdominal pain (principal)
CPT/HCPCS: 36415; 80053; 83690; 85025; 96374; 96376; 99281

== ENCOUNTER 2022-10-18 15:26 | Emergency (ER) | payer MEDICARE, MEDICAID ==
[~2022-10-18] VITALS: Ht 165 cm; Wt 64.4 kg
--- NOTE | 2022-10-18 15:35 | ED Abdominal Pain ---
General Stated Complaint: N/V, LT SIDE ABD PAIN Source of Information: Patient Exam Limitations: No Limitations History of Present Illness Date Seen by Provider: Oct 18, 2022 Time Seen by Provider: 15:25 Initial Comments 41-year-old female presents to the emergency department today for abdominal pain vomiting. 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 She has a history of gastroparesis, chronic pancreatitis, insulin-dependent diabetes mellitus type 1 with an insulin pump. She has chronic abdominal pain nausea and vomiting. She states she just left Dr. Becker's office where she was found on CT scan to have some adhesions in her left abdomen. This is the area of her concern today. She states this pain has been off and on for upwards of 6 months to a year. Plan is for endoscopy and lysis of adhesions on Monday. She denies any fevers or chills. Her main concern is her nausea with vomiting. She states she been unable to keep anything down for about 3 days. Has been using Phenergan at home which usually works for her however it has not been working +24 hours. Her blood sugars have been in the 2-300 range. No changes in bowels. Allergies and Home Medications Allergies Coded Allergies: Penicillins (Verified Allergy, Unknown, 03/18/22) azithromycin (Verified Allergy, Unknown, 03/18/22) cephalexin (Verified Allergy, Unknown, 03/18/22) meperidine (Verified Allergy, Unknown, 03/18/22) metoclopramide (Verified Allergy, Unknown, 03/18/22) Patient Home Medication List Home Medication List Reviewed: Yes Acetaminophen (Tylenol Extra Strength) 500 Mg Tablet, 1,000 MG PO Q8H PRN for PAIN-MILD (1-4), (Reported) Entered as Reported by: ALFRED WALLACE on 03/24/22 0951 Atorvastatin Calcium (Atorvastatin Calcium) 20 Mg Tablet, 20 MG PO DAILY, (Reported) Entered as Reported by: ALFRED WALLACE on 03/24/22 0948 Buprenorphine HCl/Naloxone HCl (Buprenorphine-Nalox 8-2Mg Film) 8 Mg-2 Mg Film, 1 EACH PO BID, (Reported) Entered as Reported by: ALFRED WALLACE on 03/24/22 0948 Estradiol (Estradiol Tablet) 1 Mg Tablet, 1 MG PO DAILY, (Reported) Entered as Reported by: ALFRED WALLACE on 03/24/22 0948 Gabapentin (Gabapentin) 600 Mg Tablet, 600 MG PO BID, (Reported) Entered as Reported by: ALFRED WALLACE on 03/24/22 1008 Glucagon (Baqsimi) 3 Mg/Actuation [place], 1 SPRAY NS UD PRN for HYPOGLYCEMIA, (Reported) Entered as Reported by: ALFRED WALLACE on 03/24/22 0948 Hydrocodone/Acetaminophen (Hydrocodone-Acetamin 5-325 mg) 5 Mg-325 Mg Tablet, 1 TAB PO Q6H PRN for PAIN-SEVERE (8-10) Prescribed by: JANEY SALAS on 10/05/22 0906 Ibuprofen (Ibuprofen) 200 Mg Tablet, 400 MG PO Q8H PRN for PAIN-MILD (1-4), (Reported) Entered as Reported by: ALFRED WALLACE on 03/24/22 0952 Ibuprofen (Ibuprofen) 400 Mg Tablet, 400 MG PO Q8H Prescribed by: JANEY SALAS on 10/05/22 0904 Insulin Aspart (Novolog) 100 Unit/Ml Susp, UNITS SC UD, (Reported) Entered as Reported by: ALFRED WALLACE on 03/24/22 0957 Methocarbamol (Methocarbamol) 750 Mg Tablet, 750 MG PO Q8H PRN for MUSCLE SPASMS Prescribed by: JANEY SALAS on 10/05/22 0911 Ondansetron (Ondansetron Odt) 4 Mg Tab.rapdis, 4 MG PO TID PRN for NAUSEA/VOMITING, (Reported) Entered as Reported by: ALFRED WALLACE on 03/24/22 0948 Ondansetron (Ondansetron Odt) 4 Mg Tab.rapdis, 4 MG SL Q4H PRN for NAUSEA/VOMITING Prescribed by: ISABELA OROPEZA MD on 09/08/22 1550 Polyethylene Glycol 3350 (Miralax) 17 Gram Powd.pack, 17 GM PO BID PRN for CONSTIPATION-2ND LINE, (Reported) Entered as Reported by: ALFRED WALLACE on 03/24/22 1002 Promethazine HCl (Promethazine Tablet) 25 Mg Tablet, 25 MG PO TID PRN for NAUSEA/VOMITING Prescribed by: ALLI PRETTY on 06/22/22 1026 Sulfamethoxazole/Trimethoprim (Bactrim Ds Tablet) 1 Each Tablet, 1 EACH PO BID Prescribed by: JANEY SALAS on 10/05/22 0904 Review of Systems Review of Systems Constitutional: no symptoms reported EENTM: No Symptoms Reported Respiratory: No Symptoms Reported Cardiovascular: No Symptoms Reported Gastrointestinal: No Symptoms Reported, Abdominal Pain, Nausea, Vomiting Genitourinary: No Symptoms Reported Musculoskeletal: no symptoms reported Skin: no symptoms reported Psychiatric/Neurological: No Symptoms Reported Endocrine: No Symptoms Reported Hematologic/Lymphatic: No Symptoms Reported Past Lfgzmxc-Jxqwsj-Vnzwrd Hx Patient Social History Tobacco Use?: No Use of E-Cig and/or Vaping dev: No Substance use?: No Immunizations Up To Date First/Initial COVID19 Vaccinat: none Second COVID19 Vaccination Jake: none Third COVID19 Vaccination Date: none Past Medical History Surgery/Hospitalization HX: left upper arm nerve repain, gastric stimulator, insulin pump, hysterectomy, gallbladder, Surgeries: Yes Abdominal, Gallbladder, Hysterectomy, Orthopedic Respiratory: No Cardiac: Yes High Cholesterol, Hypertension Neurological: No Diabetes, Insulin dep Cancer: No Psychosocial: No Integumentary: No Family Medical History Reviewed Nursing Family Hx No Pertinent Family Hx Physical Exam Vital Signs Vital Signs - First Documented 10/18/22 15:31 Temp 34.3 Pulse 97 B/P (MAP) 147/105 (119) Pulse Ox 96 O2 Delivery Room Air Capillary Refill : Height/Weight/BMI Height: '" Weight: lbs. oz. kg; 22.00 BMI Method: General Appearance: WD/WN, no apparent distress HEENT: normal ENT inspection, pharynx normal Neck: non-tender, supple Respiratory: chest non-tender, lungs clear, normal breath sounds, no respiratory distress, no accessory muscle use Cardiovascular: regular rate, rhythm, no murmur Gastrointestinal: normal bowel sounds, soft, no organomegaly, tenderness (Diff use tenderness to palpation. This is in the epigastric region and left abdomen. There is voluntary guarding without any rebound tenderness. No mass organomegaly. No skin changes) Extremities: non-tender, normal inspection, normal capillary refill Back: normal inspection, no vertebral tenderness Neurologic/Psychiatric: alert, oriented x 3 Skin: normal color, warm/dry Lymphatic: no adenopathy Progress/Results/Core Measures Results/Orders Lab Results Laboratory Tests Test 10/18/22 16:11 Range/Units White Blood Count 8.6 4.3-11.0 10^3/uL Red Blood Count 4.40 3.80-5.11 10^6/uL Hemoglobin 12.1 11.5-16.0 g/dL Hematocrit 38 35-52 % Mean Corpuscular Volume 85 80-99 fL Mean Corpuscular Hemoglobin 28 25-34 pg Mean Corpuscular Hemoglobin Concent 32 32-36 g/dL Red Cell Distribution Width 15.8 H 10.0-14.5 % Platelet Count 264 130-400 10^3/uL Mean Platelet Volume 10.0 9.0-12.2 fL Immature Granulocyte % (Auto) 0 % Neutrophils (%) (Auto) 72 42-75 % Lymphocytes (%) (Auto) 18 12-44 % Monocytes (%) (Auto) 5 0-12 % Eosinophils (%) (Auto) 3 0-10 % Basophils (%) (Auto) 1 0-10 % Neutrophils # (Auto) 6.2 1.8-7.8 10^3/uL Lymphocytes # (Auto) 1.6 1.0-4.0 10^3/uL Monocytes # (Auto) 0.5 0.0-1.0 10^3/uL Eosinophils # (Auto) 0.3 0.0-0.3 10^3/uL Basophils # (Auto) 0.1 0.0-0.1 10^3/uL Immature Granulocyte # (Auto) 0.0 0.0-0.1 10^3/uL Sodium Level 138 135-145 MMOL/L Potassium Level 4.4 3.6-5.0 MMOL/L Chloride Level 103 98-107 MMOL/L Carbon Dioxide Level 23 21-32 MMOL/L Anion Gap 12 5-14 MMOL/L Blood Urea Nitrogen 20 H 7-18 MG/DL Creatinine 0.87 0.60-1.30 MG/DL Estimat Glomerular Filtration Rate 85 BUN/Creatinine Ratio 23 Glucose Level 231 H 70-105 MG/DL Calcium Level 9.2 8.5-10.1 MG/DL Corrected Calcium 9.0 8.5-10.1 MG/DL Total Bilirubin 0.5 0.1-1.0 MG/DL Aspartate Amino Transf (AST/SGOT) 16 5-34 U/L Alanine Aminotransferase (ALT/SGPT) 18 0-55 U/L Alkaline Phosphatase 114 40-136 U/L Total Protein 7.0 6.4-8.2 GM/DL Albumin 4.3 3.2-4.5 GM/DL Lipase 5 L 8-78 U/L Beta-Hydroxybutyrate (Chem panel) 0.85 H 0.00-0.27 MMOL/L My Orders Orders - PRAVEEN NINA Comprehensive Metabolic Panel (10/18/22 15:35) Lipase (10/18/22 15:35) Beta Hydroxybutyrate (10/18/22 15:35) Cbc With Automated Diff (10/18/22 15:35) Ns Iv 1000 Ml (Sodium Chloride 0.9%) (10/18/22 15:45) Ondansetron Injection (Zofran Injectio (10/18/22 15:45) Diphenhydramine Injection (Benadryl Inje (10/18/22 15:45) Medications Given in ED Current Medications Medications Dose Ordered Sig/Joelle Route Start Time Stop Time Status Last Admin Dose Admin Diphenhydramine HCl 50 mg ONCE ONCE IVP 10/18/22 15:45 10/18/22 15:46 DC 10/18/22 16:18 50 MG Ondansetron HCl 8 mg ONCE ONCE IVP 10/18/22 15:45 10/18/22 15:46 DC 10/18/22 16:18 8 MG Vital Signs/I&O 10/18/22 15:31 Temp 34.3 Pulse 97 B/P (MAP) 147/105 (119) Pulse Ox 96 O2 Delivery Room Air Departure Communication (Admissions) Patient is hemodynamically stable with a nonsurgical abdominal exam. She has normal vital signs. She has chronic abdominal pain for which she has surgery scheduled on Monday for possible lysis of adhesions. Labs obtained to rule out DKA, electrolyte abnormalities given her significant history of nausea vomiting for 3 days. Labs are reassuring. He was given Zofran and Benadryl here with improvement in her nausea and vomiting symptoms. She is tolerating p .o. and discharged in stable condition with close follow-up and supportive care. Impression Primary Impression: Chronic abdominal pain Additional Impression: Nausea and vomiting in adult Disposition: 01 HOME, SELF-CARE Condition: Stable Departure-Patient Inst. Referrals: NANCY BAH DO (PCP/Family) Primary Care Physician Patient Instructions: Chronic Pain, Nausea and Vomiting, Adult (DC) Add. Discharge Instructions: Continue to use on Phenergan as needed. Use oral Benadryl as needed for nausea as well. Increase your fluids at home, rest. Your electrolytes are normal as is your kidney function. Continue to use home medications as needed for your chronic abdominal pain. Return to the emergency department for any severe concerns. Follow-up with your primary doctor and Dr. Becker for any nonemergent needs. PRAVEEN NINA DO Oct 18, 2022 15:35
[2022-10-18] MEDS ORDERED: diphenhydrAMINE 50 MG/ML INJ (BENADRYL) IVP ONE (15:45)
[2022-10-18] MEDS ORDERED: ONDANSETRON 4 MG/2 ML (SDV) Z0FRAN IVP ONE (15:45)
[2022-10-18] MEDS ORDERED: NS IV 1000 ML 1,000 ML IV SCH (15:45)
[2022-10-18 16:20] LABS: BASOPHILS # (AUTO) 0.1 10^3/uL (0.0-0.1); BASOPHILS % (AUTO) 1 % (0-10); EOSINOPHILS # (AUTO) 0.3 10^3/uL (0.0-0.3); EOSINOPHILS % (AUTO) 3 % (0-10); HEMATOCRIT 38 % (35-52); HEMOGLOBIN 12.1 g/dL (11.5-16.0); LYMPHOCYTES # (AUTO) 1.6 10^3/uL (1.0-4.0); LYMPHOCYTES % (AUTO) 18 % (12-44); MEAN CORPUSCULAR HEMOGLOBIN 28 pg (25-34); MEAN CORPUSCULAR HGB CONC 32 g/dL (32-36); MEAN CORPUSCULAR VOLUME 85 fL (80-99); MONOCYTES # (AUTO) 0.5 10^3/uL (0.0-1.0); MONOCYTES % (AUTO) 5 % (0-12); NEUTROPHILS # (AUTO) 6.2 10^3/uL (1.8-7.8); NEUTROPHILS % (AUTO) 72 % (42-75); PLATELET COUNT 264 10^3/uL (130-400); WHITE BLOOD COUNT 8.6 10^3/uL (4.3-11.0)
[2022-10-18 16:30] LABS: ALBUMIN 4.3 GM/DL (3.2-4.5); POTASSIUM 4.4 MMOL/L (3.6-5.0)
[2022-10-18 16:31] LABS: CALCIUM 9.2 MG/DL (8.5-10.1)
[2022-10-18 16:34] LABS: BILIRUBIN,TOTAL 0.5 MG/DL (0.1-1.0)
[2022-10-18 16:36] LABS: CREATININE SERUM 0.87 MG/DL (0.60-1.30)
[2022-10-18] MEDS ORDERED: KETOROLAC 15 MG/ML VIAL IVP ONE (17:00)
[2022-10-18] MEDS ORDERED: ACETAMINOPHEN 500 MG TAB (TYLENOL) PO ONE (17:00)
[2022-10-18 17:09] VITALS: BP 147/83
[2022-10-20] MEDS ORDERED: LISI10TA25 PO (15:47)
[2022-10-20] MEDS ORDERED: ACHD5005 PO (15:50)
[2022-10-20] MEDS ORDERED: PROM25TA14 PO (15:50)
[2022-10-20] MEDS ORDERED: PROC10TA10 PO (15:50)
== END 2022-10-18 17:08 | disposition home or self-care (01) ==
LOC: EDUNIT# 15:26 → ER 15:28
DX: R10.84 Generalized abdominal pain (principal); G89.29 Other chronic pain; R11.2 Nausea with vomiting, unspecified; E10.9 Type 1 diabetes mellitus without complications; Z96.41 Presence of insulin pump (external) (internal); Z87.19 Personal history of other diseases of the digestive system; Z79.899 Other long term (current) drug therapy; Z28.310 Unvaccinated for COVID-19
CPT/HCPCS: 36415; 80053; 82010; 83690; 85025; 99283

== ENCOUNTER → 2022-10-20 | Outpatient (CLI) | payer MEDICARE, MEDICAID ==
[~2022-10-20] VITALS: Ht 165.1 cm; Wt 64.9 kg
[~2022-10-20] MED LIST changes: +HYDR-3817 PO; +LISI10TA25 PO; +PROC10TA10 PO
== END | disposition home or self-care (01) ==
LOC: PREOP 12:36
PROVIDERS: ATTEND Surgery
DX: Z01.818 Encounter for other preprocedural examination (principal)

== ENCOUNTER 2022-10-26 12:12 | Day surgery (SDC) | payer MEDICARE, MEDICAID ==
[2022-10-26] VITALS (10 sets, daily range): BP systolic 129–176; BP diastolic 80–96
[~2022-10-26] VITALS: Ht 165 cm; Wt 64.9 kg
[~2022-10-26 12:12] MED LIST changes: -HYDR-3817 PO
[2022-10-26] MEDS ORDERED: LACTATED RINGERS 1,000 ML IV STA (12:19)
--- NOTE | 2022-10-26 12:29 | Progress Note-Pre Operative ---
Pre-Operative Progress Note Date of Available H&P: Oct 26, 2022 Date H&P Reviewed: Oct 26, 2022 Time H&P Reviewed: 12:00 History & Physical: No changes noted Pre-Operative Diagnosis: PUD, GERD FLORENCIA YANCEY MD Oct 26, 2022 12:29
[2022-10-26] MEDS ORDERED: HURRICAINE EXT TUBE (BENZOCAINE) XX PRN (12:30)
[2022-10-26] MEDS ORDERED: ONDANSETRON 4 MG (ZOFRAN) ORAL DISSOLVE TAB PO PRN (12:30)
[2022-10-26] MEDS ORDERED: LIDOCAINE JELLY 2% 6 ML SYRINGE MM PRN (12:30)
[2022-10-26] MEDS ORDERED: ONDANSETRON 4 MG/2 ML (SDV) Z0FRAN IVP PRN ×2 (12:30→16:15)
--- NOTE | 2022-10-26 12:30 | Discharge Inst-Surgical ---
D/C Lap Instructions-NAYE Follow Up Activity as tolerated High Fiber Diet 25g or more per day Avoid Alcohol, Caffeine, Spicy [place] and Acid foods. Drink 64 fluid oz or more of fluids per day. Symptoms to Report: Fever over 101 degree F, Nausea/Vomiting If any problems/questions: Contact your physician or go to Emergency Room FLORENCIA YANCEY MD Oct 26, 2022 12:30
[2022-10-26] MEDS ORDERED: ONDANSETRON 4 MG/2 ML (SDV) Z0FRAN ONE ×2 (12:34→14:07)
[2022-10-26] MEDS ORDERED: LIDOCAINE PF 1% 5 ML (XYLOCAINE) AMP ONE ×2 (13:09)
[2022-10-26] MEDS ORDERED: MIDAZOLAM 2 MG/2 ML (VERSED) VIAL ONE ×2 (13:11→14:07)
[2022-10-26] MEDS ORDERED: PROPOFOL INJECTION 0 ML IV ONE (13:12)
[2022-10-26] MEDS ORDERED: LIDOCAINE PF 2% 5 ML (XYLOCAINE) VIAL ONE (14:07)
[2022-10-26] MEDS ORDERED: fentaNYL INJ 100 MCG/2 ML AMP ONE ×2 (14:07→14:22)
[2022-10-26] MEDS ORDERED: proPOfol 200 MG/20 ML (DIPRIVAN) VIAL IV ONE (14:07)
[2022-10-26] MEDS ORDERED: SEVOFLURANE (ULTANE) 15 ML INHAL SOLN ONE ×2 (14:07→16:05)
[2022-10-26] MEDS ORDERED: SUCCINYLCHOLINE INJ 20 MG/1 ML 10 ML VIAL ONE (14:10)
[2022-10-26] MEDS ORDERED: 0.9% SODIUM CHLORIDE PF INJ 20 ML VIAL ONE (14:15)
[2022-10-26] MEDS ORDERED: BUP/EPI 0.25% 1:200,000 (MARCAINE) 30 ML VIAL ONE (14:16)
[2022-10-26] MEDS ORDERED: HEParin (CENTRAL IV FLUSH) 500 UNIT/5 ML SYR ONE (14:16)
[2022-10-26] MEDS ORDERED: fentaNYL INJ 100 MCG/2 ML AMP IVP ONE ×2 (14:30→16:15)
[2022-10-26] MEDS ORDERED: ceFAZolin INJECTION 0 MG ONE ×2 (14:43→14:46)
[2022-10-26] MEDS ORDERED: CLINDAMYCIN 600 MG/50 ML IVPB 50 ML IV ONE (14:50)
[2022-10-26] MEDS ORDERED: 0.9% SODIUM CHLORIDE PF INJ 20 ML VIAL IJ ONE (14:57)
[2022-10-26] MEDS ORDERED: BUP/EPI 0.25% 1:200,000 (MARCAINE) 30 ML VIAL IJ ONE (14:59)
[2022-10-26] MEDS ORDERED: HEParin (CENTRAL IV FLUSH) 500 UNIT/5 ML SYR INJ ONE (14:59)
[2022-10-26] MEDS ORDERED: CLINDAMYCIN 600 MG/4ML (CLEOCIN) VIAL INJ ONE (15:01)
[2022-10-26] MEDS ORDERED: ROCURONIUM 50 MG/5 ML (ZEMURON) VIAL IV ONE (15:38)
--- NOTE | 2022-10-26 15:40 | Progress Note-Post Operative ---
Post-Operative Progess Note Surgeon (s)/Wax Pattern Assembler (s) Surgeon FLORENCIA YANCEY MD Wax Pattern Assembler: none Pre-Operative Diagnosis PUD, GERD, IDDM, chronic venous insufficiency Post-Operative Diagnosis reflux esophagitis(grade B), mild distal esoph stricture, moderate gastritis. no distal obstructions. Procedure & Operative Findings Date of Procedure 10/26/22 Procedure Performed/Findings EGD with bx. placement left subclavian groshong implantable cath Anesthesia Type get with local Estimated Blood Loss Estimated blood loss (mL): minimal Specimens/Packing Specimens Removed ge jxn, antrum FLORENCIA YANCEY MD Oct 26, 2022 15:40
[2022-10-26] MEDS ORDERED: morphine INJ 4 MG/ML 1 ML (VIAL/SYRINGE) IVP PRN (15:45)
[2022-10-26] MEDS ORDERED: HYDROcodone/APAP 7.5 MG/325 MG (LORTAB, LORCET PLUS) TABLET PO PRN (15:45)
--- NOTE | 2022-10-26 16:02 | Anesthesia-General Post-Op ---
General Patient Condition Mental Status/LOC: Same as Preop Cardiovascular: Satisfactory Nausea/Vomiting: Absent Respiratory: Satisfactory Pain: Controlled Complications: Absent Post Op Complications Complications None Follow Up Care/Instructions Patient Instructions None needed. Anesthesia/Patient Condition Patient Condition Patient is doing well, no complaints, stable vital signs, no apparent adverse anesthesia problems. No complications reported per nursing. BLANCA KAPADIA CRNA Oct 26, 2022 16:02
--- NOTE | 2022-10-26 16:08 | Diagnostic Imaging Report ---
EXAMINATION: Chest, one view. HISTORY: Postop port placement, left chest. COMPARISON: None available. FINDINGS: Heart size and pulmonary vasculature are normal. There are diffuse interstitial opacities throughout the lungs. No pleural effusion or pneumothorax. A left-sided port catheter is present with the tip projecting over the distal SVC. The osseous structures are intact. IMPRESSION: 1. Left-sided port catheter placement with the tip projecting over the SVC. No pneumothorax. 2. Mild diffuse interstitial opacities within the lungs, which could be seen with pulmonary edema, atelectasis, or atypical infection. Dictated by: Dictated on workstation # [id number]
--- NOTE | 2022-10-26 16:24 | Diagnostic Imaging Report ---
INDICATION: Port-A-Cath placement. TECHNIQUE: Intraoperative fluoro view obtained during Port-A-Cath placement surgery. Single view obtained, 4.6 seconds of fluoro time was used. FINDINGS: Single view demonstrates Port-A-Cath approaching from left side, with tip overlying the low SVC. Study is otherwise limited. IMPRESSION: Intraoperative fluoro view demonstrates Port-A-Cath placement with tip overlying the low SVC. Dictated by: Dictated on workstation # [id number]
[2022-10-26] MEDS ORDERED: HYDROcodone/APAP 5 MG/325 MG (LORTAB) TAB ONE (16:43)
[2022-10-26] MEDS ORDERED: HYDROcodone/APAP 5 MG/325 MG (LORTAB) TAB PO ONE (16:45)
[2022-10-26] MEDS ORDERED: PANT40TA52 PO (17:16)
[2022-10-26] MEDS ORDERED: HYDR-3817 PO (17:16)
--- NOTE | 2022-10-27 00:19 | OPERATIVE REPORT ---
DATE OF SERVICE: 10/26/2022 ATTENDING PRIMARY CARE PHYSICIAN: David Prabhakar DO PREOPERATIVE DIAGNOSES: Epigastric pain, peptic ulcer disease, gastroesophageal reflux disease, insulin-dependent diabetes, chronic poor peripheral venous circulation. POSTOPERATIVE DIAGNOSES: Reflux esophagitis Thurston grade B, mild distal esophageal stricture, moderate gastritis, no distal obstructions. PROCEDURE: Placement of left subclavian Groshong implantable catheter under fluoroscopy. EGD with biopsy and balloon dilatation. SURGEON: Florencia Yancey MD ANESTHESIA: General endotracheal with local. ESTIMATED BLOOD LOSS: Minimal. FINDINGS: Reflux esophagitis Thurston grade B, mild distal esophageal stricture, moderate gastritis, no distal obstructions. DISPOSITION: The patient tolerated the procedure well. INDICATIONS: The patient is a 41-year-old female with extensive past medical history. She was referred over to us for left upper quadrant abdominal pain on an intermittent basis, which was described as sharp and at times severe, which would cause nausea and vomiting. She states that she has had this on an intermittent basis for the past 2 years; however, worse more recently. She does not report any hematemesis, no coffee-ground emesis. She also does not recall any issues of major diarrhea nor constipation as well as no red blood per rectum, nor any dark tarry stools. She does have a history of insulin-dependent diabetes as well as gastroparesis and has been on REGLAN and ERYTHROMYCIN; however, she developed allergies to those medications. She also had a gastric pacemaker placed; however, this became ineffective and malfunctioned and was removed. Due to this, she has had a total of 5 gastrostomy tubes placed for feedings. At this time, she is able to eat; however, again the chief complaint is abdominal pain. The patient also has very poor peripheral venous circulation. Multiple attempts at peripheral IV access was made by 3 anesthetists and multiple RNs with no success. The patient states that this has been the issue for years and we were able to get an ultrasound-guided midline. However, the patient stated that she wanted a Groshong implantable catheter for the multitude of medical problems she has and the need to get IV access and blood draws for her other medical problems, so we decided to proceed with placement of a Groshong implantable catheter as well as EGD under the same anesthesia. DESCRIPTION OF PROCEDURE: The patient was brought to the operating room and laid supine on the table. After adequate IV pain and sedative medications and general endotracheal intubation, the chest and neck were prepped and draped in a standard surgical fashion. A 0.5% Marcaine with epinephrine was then used to anesthetize the left subclavian region. The left subclavian vein was then cannulated withdrawing the venous blood. Guidewire was then inserted under fluoroscopy. A skin incision was then made using a #15 blade and the dilator and sheath were introduced over the guidewire. The guidewire and dilator were then removed and through the sheath, the Groshong catheter was placed under fluoroscopy until the tip of the catheter was at the superior vena caval -- right atrial junction and the sheath was then removed. The inner wire within the catheter was then removed. The catheter cut down to size and the port placed onto the catheter. The chest reservoir was then created by extending the skin incision laterally and then the plane between the subcutaneous fat and the anterior pectoralis fascia was made using blunt dissection as well as electrocautery with visualization of good hemostasis. The port was then placed into the reservoir and sutured to the anterior pectoralis fascia using interrupted 4-0 Vicryl sutures. The subcutaneous tissue was then reapproximated with the same suture in an interrupted manner and the skin was closed using 4-0 Monocryl running subcuticular suture. The wound was then cleaned and covered with Dermabond. The port was accessed and venous blood drawn and heparinized saline pushed in without any resistance. The mouth piece was applied and the endoscope was placed through the mouth to visualize the pharynx and hypopharyngeal region. Vocal cords, epiglottis and vallecula identified and appeared to be normal. The endoscope was then gently intubated with the esophageal opening and esophagus insufflated. The endoscope was then advanced through the first, second and third portions of the esophagus at the level of the GE junction, a reflux esophagitis Thurston grade B identified as well as the mild distal esophageal stricture. Biopsy was taken with forceps with visualization of good hemostasis. The endoscope was then advanced in the stomach. The endoscope was retroflexed. No significant hiatal hernia identified. Biopsy was taken at the bottom of the stomach. A moderate gastritis was noted; however, no ulcers, polyps, or any neoplasms and a biopsy was taken with a forceps with visualization of good hemostasis. The endoscope was then advanced to the pylorus and the first and second portions of the duodenum, which appeared normal with no distal obstructions. The balloon was then placed in the stomach and pulled back to the area of the stricture. We then proceeded with dilatation in a graded stepwise fashion from 2, 4, then eventually 6 atmospheres of pressure or 20 mm in luminal diameter with moderate resistance. The balloon was then desufflated and removed with visualization of good hemostasis as well as no mucosal tears. The endoscope was then slowly withdrawn, while taking a second look and suctioning of residual air with no additional findings. The patient tolerated the procedure well. We will recommend the necessary lifestyle and dietary accommodation including tight glycemic control as well as small and more frequent meals and avoidance of eating at night. She also needs to sit upright and stay upright after eating meals. Foods that are more easily digested well including a low residue diet are important. She also needs to avoid food and drinks that do increased acid production including caffeinated beverages, spicy, greasy and acidic foods as well as smoking. We will also start her on pantoprazole 40 mg daily in hopes of helping her with her crampy abdominal pain. The Groshong implantable catheter may be accessed and used at any time. Job ID: [id number] DocumentID: [id number] Dictated Date: 10/26/2022 15:51:59 Scrub Tech Date: 10/27/2022 00:16:00 Dictated By: FLORENCIA YANCEY MD
--- NOTE | 2022-10-27 19:04 | Progress Note-Pre Operative ---
Pre-Operative Progress Note Date of Available H&P: Oct 26, 2022 Date H&P Reviewed: Oct 26, 2022 Time H&P Reviewed: 12:30 History & Physical: No changes noted Pre-Operative Diagnosis: chronic peripheral venous access insufficiency FLORENCIA YANCEY MD Oct 27, 2022 19:04
== END 2022-10-26 19:05 | disposition home or self-care (01) ==
LOC: ENDO 12:12
PROVIDERS: ATTEND Surgery
DX: K21.00 Gastro-esophageal reflux disease with esophagitis, without bleeding (principal); K29.50 Unspecified chronic gastritis without bleeding; K22.2 Esophageal obstruction; F17.210 Nicotine dependence, cigarettes, uncomplicated; E11.9 Type 2 diabetes mellitus without complications; K27.9 Peptic ulcer, site unspecified, unspecified as acute or chronic, without hemorrhage or perforation; I87.2 Venous insufficiency (chronic) (peripheral); Z79.4 Long term (current) use of insulin; Z28.310 Unvaccinated for COVID-19
CPT/HCPCS: 36410; 36561; 43239; 43249; 71045; 76000; 76937; C1751; C1788

== ENCOUNTER 2022-11-03 13:48 | Emergency (ER) | payer MEDICARE, MEDICAID ==
[~2022-11-03] VITALS: Ht 165 cm; Wt 69.0 kg
[~2022-11-03 13:48] MED LIST changes: +HYDR-3817 PO
[2022-11-03] MEDS ORDERED: NS IV 1000 ML 1,000 ML IV STA (13:56)
[2022-11-03] MEDS ORDERED: ONDANSETRON 4 MG/2 ML (SDV) Z0FRAN IVP ONE (14:00)
--- NOTE | 2022-11-03 14:02 | ED GI ---
General Chief Complaint: Abdominal/GI Problems Stated Complaint: VOMITING History of Present Illness Date Seen by Provider: Nov 03, 2022 Time Seen by Provider: 13:59 Initial Comments 41-year-old female presents with vomiting. Patient is concerned that she might be "in DKA" patient reports that her blood sugars been running high for about 3 days. Patient reports has been taking her insulin as directed. Patient has been frequent visitor to the ER recently for chronic abdominal pain. On 10/27/2022 she had an EGD that showed no acute abnormalities. At that time due to her frequent ER visits but here in other facilities and difficulty getting IV access they placed a port in her left upper chest. Patient complains of abdominal pain however that is chronic for along with the vomiting. No reports of fevers chills or urinary symptoms. Allergies and Home Medications Allergies Coded Allergies: Penicillins (Verified Allergy, Unknown, 03/18/22) azithromycin (Verified Allergy, Unknown, 03/18/22) cephalexin (Verified Allergy, Unknown, 03/18/22) meperidine (Verified Allergy, Unknown, 03/18/22) metoclopramide (Verified Allergy, Unknown, 03/18/22) Patient Home Medication List Home Medication List Reviewed: Yes Acetaminophen (Tylenol Extra Strength) 500 Mg Tablet, 1,000 MG PO Q8H PRN for PAIN-MILD (1-4), (Reported) Entered as Reported by: ALFRED WALLACE on 03/24/22 0951 Glucagon (Baqsimi) 3 Mg/Actuation [place], 1 SPRAY NS UD PRN for HYPOGLYCEMIA, (Reported) Entered as Reported by: ALFRED WALLACE on 03/24/22 0948 Hydrocodone/Acetaminophen (Hydrocodone-Acetamin 7.5-325) 7.5 Mg-325 Mg Tablet, 1 EACH PO Q4H Prescribed by: JIN LUCERO on 10/26/22 1716 Ibuprofen (Ibuprofen) 200 Mg Tablet, 400 MG PO Q8H PRN for PAIN-MILD (1-4), (Reported) Entered as Reported by: ALFRED WALLACE on 03/24/22 0952 Insulin Aspart (Novolog) 100 Unit/Ml Susp, UNITS SC UD, (Reported) Entered as Reported by: ALFRED WALLACE on 03/24/22 0957 Lisinopril (Lisinopril) 10 Mg Tablet, 10 MG PO DAILY, (Reported) Entered as Reported by: KANG ADAMES on 10/20/22 1547 Ondansetron (Ondansetron Odt) 4 Mg Tab.rapdis, 4 MG PO TID PRN for NAUSEA/VOMITING, (Reported) Entered as Reported by: ALFRED WALLACE on 03/24/22 0948 Pantoprazole Sodium (Pantoprazole Sodium) 40 Mg Tablet.dr, 40 MG PO DAILY Prescribed by: JIN LUCERO on 10/26/22 1716 Polyethylene Glycol 3350 (Miralax) 17 Gram Powd.pack, 17 GM PO BID PRN for CONSTIPATION-2ND LINE, (Reported) Entered as Reported by: ALFRED WALLACE on 03/24/22 1002 Prochlorperazine Maleate (Prochlorperazine Maleate) 10 Mg Tablet, 10 MG PO TID, (Reported) Entered as Reported by: KANG ADAMES on 10/20/22 1550 Promethazine HCl (Promethazine Tablet) 25 Mg Tablet, 25 MG PO Q6H PRN for NAUSEA/VOMITING, (Reported) Entered as Reported by: KANG ADAMES on 10/20/22 1550 Review of Systems Review of Systems Constitutional: No chills, No fever; malaise EENTM: No Symptoms Reported Respiratory: Denies Cough, Denies Shortness of Air Cardiovascular: Denies Chest Pain Gastrointestinal: Abdominal Pain (chronic ), Nausea, Vomiting Genitourinary: No Symptoms Reported Musculoskeletal: no symptoms reported Skin: no symptoms reported Past [id number] Hx Immunizations Up To Date First/Initial COVID19 Vaccinat: none Second COVID19 Vaccination Jake: none Third COVID19 Vaccination Date: none Seasonal Allergies Seasonal Allergies: No Past Medical History Surgery/Hospitalization HX: left upper arm nerve repain, gastric stimulator, insulin pump, hysterectomy, gallbladder, Surgeries: Yes (gastric stimulator placed and removed, 5 feeding tubes and removed) Abdominal, Gallbladder, Hysterectomy, Orthopedic, Tubal Ligation Respiratory: No Cardiac: Yes High Cholesterol, Hypertension 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 oz. kg; 23.83 BMI Method: General Appearance: thin, other (chronically ill, appears much older than stated age. ) Respiratory: chest non-tender, lungs clear Cardiovascular: normal peripheral pulses, tachycardia Extremities: normal range of motion Neurologic/Psychiatric: alert Skin: normal color, warm/dry Progress/Results/Core Measures Results/Orders Lab Results Laboratory Tests Test 11/03/22 14:01 11/03/22 14:08 Range/Units Glucometer 273 H 70-110 MG/DL White Blood Count 9.2 4.3-11.0 10^3/uL Red Blood Count 4.56 3.80-5.11 10^6/uL Hemoglobin 12.5 11.5-16.0 g/dL Hematocrit 38 35-52 % Mean Corpuscular Volume 83 80-99 fL Mean Corpuscular Hemoglobin 27 25-34 pg Mean Corpuscular Hemoglobin Concent 33 32-36 g/dL Red Cell Distribution Width 15.1 H 10.0-14.5 % Platelet Count 196 130-400 10^3/uL Mean Platelet Volume 10.4 9.0-12.2 fL Immature Granulocyte % (Auto) 1 % Neutrophils (%) (Auto) 67 42-75 % Lymphocytes (%) (Auto) 22 12-44 % Monocytes (%) (Auto) 5 0-12 % Eosinophils (%) (Auto) 5 0-10 % Basophils (%) (Auto) 1 0-10 % Neutrophils # (Auto) 6.2 1.8-7.8 10^3/uL Lymphocytes # (Auto) 2.0 1.0-4.0 10^3/uL Monocytes # (Auto) 0.5 0.0-1.0 10^3/uL Eosinophils # (Auto) 0.5 H 0.0-0.3 10^3/uL Basophils # (Auto) 0.1 0.0-0.1 10^3/uL Immature Granulocyte # (Auto) 0.1 0.0-0.1 10^3/uL Sodium Level 136 135-145 MMOL/L Potassium Level 4.4 3.6-5.0 MMOL/L Chloride Level 100 98-107 MMOL/L Carbon Dioxide Level 26 21-32 MMOL/L Anion Gap 10 5-14 MMOL/L Blood Urea Nitrogen 16 7-18 MG/DL Creatinine 0.76 0.60-1.30 MG/DL Estimat Glomerular Filtration Rate 100 BUN/Creatinine Ratio 21 Glucose Level 284 H 70-105 MG/DL Calcium Level 9.2 8.5-10.1 MG/DL Corrected Calcium 9.1 8.5-10.1 MG/DL Total Bilirubin 0.3 0.1-1.0 MG/DL Aspartate Amino Transf (AST/SGOT) 20 5-34 U/L Alanine Aminotransferase (ALT/SGPT) 14 0-55 U/L Alkaline Phosphatase 150 H 40-136 U/L Total Protein 6.6 6.4-8.2 GM/DL Albumin 4.1 3.2-4.5 GM/DL Lipase 7 L 8-78 U/L Influenza Type A (RT-PCR) Not Detected Not Detecte Influenza Type B (RT-PCR) Not Detected Not Detecte SARS-CoV-2 RNA (RT-PCR) Not Detected Not Detecte My Orders Orders - ACOSTA,CAREY L DO Arterial Blood Gas (11/03/22 13:56) Cbc With Automated Diff (11/03/22 13:56) Comprehensive Metabolic Panel (11/03/22 13:56) Lipase (11/03/22 13:56) Influenza A And B By Pcr (11/03/22 13:56) Accucheck Stat ONCE (11/03/22 13:56) Covid 19 Inhouse Test (11/03/22 13:56) Beta Hydroxybutyrate (11/03/22 13:56) Ondansetron Injection (Zofran Injectio (11/03/22 14:00) Ns Iv 1000 Ml (Sodium Chloride 0.9%) (11/03/22 13:56) Ua Culture If Indicated (11/03/22 13:56) Medications Given in ED Current Medications Medications Dose Ordered Sig/Joelle Route Start Time Stop Time Status Last Admin Dose Admin Ondansetron HCl 4 mg ONCE ONCE IVP 11/03/22 14:00 11/03/22 14:01 DC 11/03/22 14:06 4 MG Vital Signs/I&O 11/03/22 14:00 Temp 36.5 Pulse 75 Resp 16 B/P (MAP) 160/100 (120) Pulse Ox 98 O2 Delivery Room Air Progress Progress Note : Progress Note Reviewed patient's labs. She has a slight elevation in her alk phos along with a slight elevation of her blood glucose. However she does not have any labs indicate DKA or dehydration. Reviewed Dr. Becker's operative note on her EGD and does not show any acute findings. Patient likely experiencing her chronic abdominal pain and nausea and vomiting. This time no further work-up is i ndicated has this is a chronic issue going on for quite some time. Discussed with her she will need to follow-up with Dr. Becker for further outpatient evaluation. Patient was provided normal saline 1 L along with some Zofran to help with her nausea. Patient was stable and discharged Departure Impression Primary Impression: Chronic abdominal pain Additional Impressions: Cyclical vomiting without nausea, not intractable Hyperglycemia due to type 1 diabetes mellitus Disposition: 01 HOME, SELF-CARE Condition: Stable Departure-Patient Inst. Referrals: NANCY BAH DO (PCP) Primary Care Physician Patient Instructions: High Blood Sugar, Adult ED, Nausea and Vomiting, Adult ED Add. Discharge Instructions: Please follow-up with Dr. Becker and your primary care provider for further outpatient evaluation of your chronic abdominal pain nausea and vomiting. Please closely monitor your blood sugars and take your insulin as prescribed. All discharge instructions reviewed with patient and/or family. Voiced understanding. CAREY ACOSTA DO Nov 03, 2022 14:02
[2022-11-03 14:14] LABS: BASOPHILS # (AUTO) 0.1 10^3/uL (0.0-0.1); BASOPHILS % (AUTO) 1 % (0-10); EOSINOPHILS # (AUTO) 0.5 10^3/uL (0.0-0.3); EOSINOPHILS % (AUTO) 5 % (0-10); HEMATOCRIT 38 % (35-52); HEMOGLOBIN 12.5 g/dL (11.5-16.0); LYMPHOCYTES % (AUTO) 22 % (12-44); MEAN CORPUSCULAR HEMOGLOBIN 27 pg (25-34); MEAN CORPUSCULAR HGB CONC 33 g/dL (32-36); MEAN CORPUSCULAR VOLUME 83 fL (80-99); MEAN PLATELET VOLUME 10.4 fL (9.0-12.2); MONOCYTES # (AUTO) 0.5 10^3/uL (0.0-1.0); MONOCYTES % (AUTO) 5 % (0-12); NEUTROPHILS # (AUTO) 6.2 10^3/uL (1.8-7.8); NEUTROPHILS % (AUTO) 67 % (42-75); PLATELET COUNT 196 10^3/uL (130-400); WHITE BLOOD COUNT 9.2 10^3/uL (4.3-11.0)
[2022-11-03 14:38] LABS: BILIRUBIN,TOTAL 0.3 MG/DL (0.1-1.0); CALCIUM 9.2 MG/DL (8.5-10.1); CREATININE SERUM 0.76 MG/DL (0.60-1.30); POTASSIUM 4.4 MMOL/L (3.6-5.0); TOTAL PROTEIN 6.6 GM/DL (6.4-8.2)
[2022-11-03 14:39] LABS: ALBUMIN 4.1 GM/DL (3.2-4.5)
[2022-11-03 14:44] VITALS: BP 134/69
== END 2022-11-03 14:50 | disposition home or self-care (01) ==
LOC: EDUNIT# 13:48 → ER FS 13:49
DX: R10.9 Unspecified abdominal pain (principal); G89.29 Other chronic pain; E10.65 Type 1 diabetes mellitus with hyperglycemia; R11.15 Cyclical vomiting syndrome unrelated to migraine; R79.89 Other specified abnormal findings of blood chemistry; Z96.41 Presence of insulin pump (external) (internal); Z87.19 Personal history of other diseases of the digestive system; Z28.310 Unvaccinated for COVID-19; Z20.822 Contact with and (suspected) exposure to COVID-19
CPT/HCPCS: 36415; 80053; 82010; 82805; 82947; 83690; 85025; 87636